=== PATIENT | female | born 1935 | race Caucasian/White ===

== ENCOUNTER 2016-09-28 08:22 | Inpatient (IN) | payer MEDICARE ==
[2016-09-28] MEDS: NS 0.9% 1000 ML* 1,000 ML IV SCH ×2 (08:45→12:06)
[2016-09-28] MEDS ORDERED: Albuterol/Ipratropium NEB.SOL* Albuterol 2.5 MG/Ipratropium 0.5 MG 3 ML ONE (08:50)
[2016-09-28] MEDS ORDERED: Albuterol/Ipratropium NEB.SOL* Albuterol 2.5 MG/Ipratropium 0.5 MG 3 ML INH ONE (08:51)
--- NOTE | 2016-09-28 08:52 | RAD ---
INDICATION: Short of breath COMPARISON: August 03, 2013 TECHNIQUE: An AP portable view obtained at 0836 hours is submitted. FINDINGS: Bones/Soft Tissues: There are no acute bony findings. There is increased para mediastinal soft tissue prominence in the right upper mediastinum. This may be represent a combination of image rotation and vascular ectasia. Initially, suggest a follow-up PA and lateral view. Cardiomediastinal: The heart is normal in size. There is increased right upper mediastinal soft tissue prominence. This may be secondary to a combination of image rotation and vascular ectasia but a follow-up PA and lateral view is suggested for further evaluation. Lungs: Hyperinflation with mild chronic abnormalities left lung base. Pleura: Mild chronic blunting left costophrenic angle. Other: None IMPRESSION: ]. RIGHT PARA MEDIASTINAL SOFT TISSUE PROMINENCE. FOLLOW-UP IMAGING IS RECOMMENDED.
[2016-09-28 08:57] LABS: Hematocrit 35 % (35-47); Hemoglobin 11.3 g/dl (12.0-16.0); Mean Corpuscular HGB Conc 33 g/dl (31-36); Mean Corpuscular Hemoglobin 28 pg (27-31); Mean Corpuscular Volume 86 fL (80-97); Mean Platelet Volume 7 um3 (7.4-10.4); Red Blood Count 4.05 10^6/ul (4.0-5.4); Red Cell Distribution Width 14 % (10.5-15); White Blood Count 11.5 10^3/ul (3.5-10.8)
[2016-09-28 09:18] LABS: Albumin 4.1 g/dL (3.2-5.2); BUN/Creatinine Ratio 31.3 (8-20); C Reactive Protein 18.1 mg/L (< 5.00); Calcium 9.6 mg/dL (8.6-10.3); EGFR African American 114.8 (>60); EGFR Non-African American 89.3 (>60); Magnesium 3.4 mg/dL (1.9-2.7); Total Bilirubin 0.3 mg/dL (0.2-1.0); Total Protein 7.1 g/dL (6.4-8.9)
[2016-09-28] MEDS ORDERED: Levofloxacin 750 MG IVPREMIX(* 750 MG/150 ML BAG IVPB ONE (09:57)
[2016-09-28] MEDS ORDERED: Albuterol/Ipratropium NEB.SOL* Albuterol 2.5 MG/Ipratropium 0.5 MG 3 ML INH PRN (09:58)
[2016-09-28] MEDS ORDERED: methylPREDNISolone SOD 40 MG* 1 ML VIAL IV ONE (09:59)
[2016-09-28] MEDS ORDERED: methylPREDNISolone SOD 40 MG* 1 ML VIAL IV SCH (10:00)
[2016-09-28] MEDS ORDERED: Simethicone CHEW TAB* 80 MG PO PRN (10:02)
[2016-09-28 10:16] LABS: Urine Bacteria 1+ (Absent); Urine Bilirubin Negative (Negative); Urine Glucose Negative (Negative); Urine Nitrite Positive (Negative)
[2016-09-28] MEDS: Albuterol/Ipratropium NEB.SOL* Albuterol 2.5 MG/Ipratropium 0.5 MG 3 ML INH SCH ×4 (10:57→23:26)
[2016-09-28] MEDS ORDERED: Tiotropium CAP.INH* CAP.INH/18 MCG (USE ORDER SET !) INH SCH (11:00)
[2016-09-28] MEDS: ROFLUMILAST 500 MCG PO SCH (11:36)
[2016-09-28] MEDS: Montelukast Sodium TAB* 10 MG PO SCH (12:06)
[2016-09-28] MEDS: Aspirin Low Dose CHEW TAB* 81 MG PO SCH (12:06)
[2016-09-28] MEDS: UMECLIDIN MDI INH SCH (12:06)
[2016-09-28] MEDS: Mometasone/Formoter 100/5 MDI INH SCH ×2 (12:21→21:22)
[2016-09-28] MEDS: Albuterol HFA INHALER* 8 gm MDI INH SCH ×3 (13:45→21:21)
[2016-09-28] MEDS: methylPREDNISolone SOD 40 MG* 1 ML VIAL IV SCH ×2 (13:46→22:10)
[2016-09-28] MEDS: Heparin VIAL(*) 5000 UNITS/ML VIAL (FIVE THOUSAND) SUBCUT SCH ×2 (13:46→22:10)
--- NOTE | 2016-09-28 13:47 | HP ---
CC: Emiliano Villalobos MD HISTORY AND PHYSICAL: DATE OF ADMISSION: 09/28/16 TIME OF EVALUATION: 9:40 a.m. PRIMARY CARE PROVIDER: Emiliano Villalobos MD. CHIEF COMPLAINT: Shortness of breath. HISTORY OF PRESENT ILLNESS: Ms. Rojas is an 81-year-old lady with a past medical history of hyper tension, COPD on 2 liters of oxygen at home, GERD, who was brought in by EMS with complaints of naseem re shortness of breath. The patient states that she was on her usual state of health yesterday morn ing when she went out with friends. She states she was exposed to very strong smells of perfume and cigarette and upon returning home, she started to feel more short of breath. She states that in past, she was advised to increase her prednisone if she had symptoms and she did do that yesterday and initially felt much improved. Early evening, she started to have shortness of breath again and her family offered to bring her to the emergency room, but she felt it was not necessary. She took multiple breathing treatments overnight and states that after 1 in the morning, she was finally able to rest on her recliner, but around 4 in the morning, she woke up again severely short of breath a nd at that point, EMS was called. As per EMS records, the patient was found seated upright with ass istance. She was tripoding with pursed lip breathing and intercostal retractions and labored breathi ng. She was able to speak 2 to 3e word sentences. Lung sounds revealed faint wheezing globally wit h diminished sounds and minimal air movement. She received albuterol and Atrovent , received 6 lite rs of oxygen and despite that her saturation dropped to 88% when she was moved to the stretcher. Sh e also received magnesium and Dr. Angelo reported that the patient received CPAP and was initially feeling better, but at the time of my interview, she was once again short of breath, and although s he describes her symptoms are not as severe as they were when EMS was called. She is still very sym ptomatic. She denies fever, chills, chest pain, palpitations, or any other symptoms. No chest pain or palpita tions. No fevers, chills. She noticed a slight increase in sputum production yesterday, but the co rasheed is unchanged. No sick contacts at home. She did receive her pneumonia vaccine 2 weeks ago. PAST MEDICAL HISTORY: 1. Hypertension. 2. COPD on 2 liters of oxygen at home continuously. 3. GERD. PAST SURGICAL HISTORY: Status post left inguinal hernia repair, status post hysterectomy with bilat eral oophorectomy, status post lumbar spine surgery. MEDICATIONS: 1. Albuterol 2.5 mg nebulized q.4 hours p.r.n. shortness of breath. 2. Albuterol HFA 2 puffs inhaled 4 times a day. 3. Aspirin 81 mg p.o. daily. 4. Calcium carbonate plus vitamin D 2 tablets p.o. daily. 5. Fluconazole 100 mg p.o. daily as needed for yeast infection. 6. Lisinopril 10 mg daily. 7. Montelukast 10 mg p.o. daily. 8. Multivitamin with minerals 1 capsule p.o. daily. 9. Omeprazole 20 mg p.o. daily. 10. Prednisone 5 mg p.o. daily. 11. Daliresp 500 mcg p.o. daily. 12. Simethicone 80 mg p.o. a.c. h.s. as needed for bloating. 13. Spiriva 1 capsule inhaled daily. 14. Incruse Ellipta MDI 62.5 mcg inhaled twice a day. ALLERGIES: AMOXICILLIN, CEFTRIAXONE, CLAVULANIC ACID, the patient had difficulty breathing/wheezing . With CEPHALEXIN, the patient had an asthmatic shock, and with MUCINEX DM, the patient had an unkn own reaction. SOCIAL HISTORY: The patient is a former smoker with greater than 40 pack per year history. No hist ory of alcohol or recreational drugs. [place] ([facility] Surrogate decision maker is her daughter, Bernadette Rojas. Phone number is [phone] or her ot her daughter, Stone Rojas. Phone number is [phone]. REVIEW OF SYSTEMS: A 14-point review of systems was performed and all the pertinent negative and po sitive findings are described in the HPI. PHYSICAL EXAMINATION GENERAL: The patient is an elderly lady, sitting up in the stretcher in moderate respiratory distre ss, but able to speak full sentences. VITAL SIGNS: Temperature 98.4, heart rate is 110, respiratory rate is 24, oxygen saturation 93% on 2 liters nasal cannula, blood pressure is 111/78. HEENT: Pupils are equal. Moist mucous membranes. CHEST: Breath sounds present bilaterally with diffuse rhonchi and wheezing. She appears to be movi ng more air at this time. CVS: Normal S1 and S2. Regular rate and rhythm. Tachycardiac. ABDOMEN: Soft. Bowel sounds are present. EXTREMITIES: No edema. NEURO: She is alert, awake, and oriented x3. Able to move all 4 extremities. DIAGNOSTIC STUDIES/LAB DATA: The patient had a CBC that showed a WBC of 11.5, hemoglobin of 11.3, hematocrit of 35, platelets of 352 with 82% neutrophils. INR 0.82. Chemistry showed sodium of 137, potassium 4.0, chloride of 103, bicarb of 27, BUN of 20, creatinine of 0.64, glucose of 137, lactic acid of 2, calcium 9.6. Magnesium 3.4. LFTs are normal. CRP is 18.1. Urinalysis showed positive nitrites, 2+ LE, 3+ wbc's, 2+ rbc's. 1+ urine bacteria, present hyaline cast. EKG done on 09/28/16 at 08:40 a.m. showed sinus tachycardia at 103 beats per minute, low voltage on the precordial leads, but no acute ischemic changes. There is no significant change when compared t o her prior July 2013. Chest x-ray showed the right paramediastinal soft tissue prominence and foll ow up imaging was recommended. There is no infiltrate was reported. ASSESSMENT AND PLAN: Ms. Rojas is an 89-year-old lady with a past medical history of hypertension , gastroesophageal reflux disease, severe chronic obstructive pulmonary disease, on home O2, that pr esents to the emergency room with complaints of severe shortness of breath, found to have chronic ob structive pulmonary disease exacerbation. 1. Systemic inflammatory response syndrome. The patient meets systemic inflammatory response syndr ome criteria with tachycardia and tachypnea and the source appears to be her chronic obstructive pul monary disease exacerbation. She does have an abnormal UA, but she has no urinary complaints at thi s time. It is not clear to me if this truly represents a urinary tract infection. 2. Acute on chronic hypoxemic respiratory failure secondary to chronic obstructive pulmonary diseas e exacerbation. The patient will be admitted to the intensive care unit as I believe she will benef it from Vapotherm to decrease her work of breathing. 3. Acute chronic obstructive pulmonary disease exacerbation secondary to bronchitis. At this point , the etiology of this episode appears to be her exposure to strong perfumes and cigarette smell, bu t infection is on the differential. The patient will be admitted to the intensive care unit. She w ill be started on Vapotherm, bronchodilators inhaled and IV steroids and for now she is going to rec eive levofloxacin. If her urine culture shows no growth, the patient has no other signs of infectio n, and she has fast improvement, I think it is safe to assume she does not have any infection and le vofloxacin could be discontinued. I did discuss with the patient and she states that she has diffic ult time tolerating BiPAP in the past. She would try it again if necessary, but would rather not. We also talked about intubation. She is agreeable with it, but would not want to be on mechanical v entilation senior care. 4. Hypertension is controlled. We are going to continue lisinopril. 5. Gastroesophageal reflux disease. We will continue omeprazole. 6. Deep venous thrombosis prophylaxis. The patient has has a score of 4 on the DVT Prophylaxis Ri sk Assessment Guide and she will started on subcutaneous heparin. 5. Code status was discussed with the patient and her family. She wishes to be a full code. TIME SPENT: Approximately 70 minutes of critical care time were spent to complete this admission. [id number]/[facility] #: [id number]
--- NOTE | 2016-09-28 14:56 | ED ---
Allison Avelar Edward, scribed for Live Angelo MD on 09/28/16 at 0825 . Shortness of Breath - HPI Summary HPI Summary: 81 y/o female BIBA c/o SOB starting yesterday at noon. Pt has also been shaking and quivering that is alleviated with sitting. The SOB is alleviated with home O2. Denies CP, fevers and chills. Associated sx: productive cough (clear), chronic R ankle edema. Former smoker. PMHx COPD, asthma, arthritis, HTN. - History of Current Complaint Hx Obtained From: Patient Onset/Duration: Lasting Hours - Noon yesterday, Still Present Associated Signs & Symptoms: Cough (Productive) - Clear, Edema - Chronic R ankle edema - Allergy/Home Medications Allergies/Adverse Reactions: Allergies Allergy/AdvReac Type Severity Reaction Status Date / Time Amoxicillin Allergy Severe Difficulty Verified 09/28/16 08:34 [From Augmentin XR] Breathing/Wheezing Ceftriaxone [From Rocephin] Allergy Severe Difficulty Verified 09/28/16 08:34 Breathing/Wheezing Clavulanic Acid Allergy Severe Difficulty Verified 09/28/16 08:34 [From Augmentin XR] Breathing/Wheezing Dextromethorphan Allergy Unknown Unknown Verified 09/28/16 08:34 [From Mucinex DM] Reaction Details Guaifenesin [From Mucinex DM] Allergy Unknown Unknown Verified 09/28/16 08:34 Reaction Details Cephalexin Allergy Anaphylatic Verified 09/28/16 08:34 Shock PMH/Surg Hx/FS Hx/Imm Hx Previously Healthy: No Endocrine/Hematology History: Reports: Hx Anticoagulant Therapy Denies: Hx Blood Disorders, Hx Blood Transfusions, Hx Bone Marrow Disease, Hx Diabetes, Hx Systemic Lupus Erythematosus, Hx Sickle Cell Disease, Hx Thyroid Disease, Hx Anemia, Other Endocrine/Hematological Disorders Cardiovascular History: Reports: Hx Hypertension Denies: Hx Aneurysm, Hx Angina, Hx Angioplasty, Hx Auto Implanted Cardiovert Defib, Hx Cardiac Arrest, Hx Cardiomegaly, Hx Congenital Heart Disease, Hx Congestive Heart Failure, Hx Coronary Artery Disease, Hx Deep Vein Thrombosis, Hx Hypercholesterolemia, Hx Hypotension, Hx Pacemaker/ICD Respiratory History: Reports: Hx Asthma, Hx Chronic Bronchitis, Hx Chronic Obstructive Pulmonary Disease (COPD) Denies: Hx Bronchopulmonary Dysplasia, Hx Cystic Fibrosis, Hx Lung Cancer, Hx Pleural Effusion, Hx Pneumonia, Hx Pulmonary Edema, Hx Pulmonary Embolism, Hx Seasonal Allergies, Hx Sleep Apnea, Other Respiratory Problems/Disorders GI History: Reports: Hx Gastroesophageal Reflux Disease, Hx Hiatal Hernia, Other GI Disorders - gerd Denies: Hx Cirrhosis, Hx Crohn's Disease, Hx Diverticulosis, Hx Gall Bladder Disease, Hx Gastrointestinal Bleed, Hx Irritable Bowel, Hx Jaundice, Hx Obstructive Bowel, Hx Ileostomy, Hx Pyloric Stenosis, Hx Ulcer History: Denies: Hx Acute Renal Failure, Hx Benign Prostatic Hyperplasia, Hx Chronic Renal Failure, Hx Dialysis, Hx Kidney Infection, Hx Kidney Stones, Hx Renal Disease, Other Problems/Disorders Musculoskeletal History: Reports: Hx Arthritis, Hx Back Problems - Spinal stenosis, Hx Osteoporosis, Other Musculoskeletal History - spinal stenosis, back surgery Denies: Hx Bursitis, Hx Congenital Bone Abnormalities, Hx Fibromyalgia, Hx Gout, Hx Orthopedic Injury, Hx Scoliosis, Hx Tendonitis Sensory History: Reports: Hx Cataracts, Hx Contacts or Glasses, Hx Vision Problem Denies: Hx Eye Injury, Hx Eye Prosthesis, Hx Glaucoma, Hx Macular Degeneration, Hx Deafness, Hx Hearing Aid, Hx Hearing Problem, Other Sensory Impairments Opthamlomology History: Reports: Hx Cataracts, Hx Contacts or Glasses, Hx Vision Problem Denies: Hx Eye Injury, Hx Eye Prosthesis, Hx Glaucoma, Hx Macular Degeneration, Other Sensory Impairments Neurological History: Denies: Hx Dementia, Hx Developmental Delay, Hx Headaches, Hx Migraine, Hx Seizures, Hx Spinal Cord Injury, Hx Transient Ischemic Attacks (TIA), Other Neuro Impairments/Disorders Psychiatric History: Denies: Hx Anxiety, Hx Attention Deficit Hyperactivity Disorder, Hx Autism, Hx Oppositional Perkins Disorder, Hx Depression, Hx Panic Disorder, Hx Post Traumatic Stress Disorder, Hx Inpatient Treatment, Hx [facility] Tx , Hx Schizophrenia, Hx Bipolar Disorder, Hx Suicide Attempt, Hx Substance Abuse , Other Psychiatric Issues/Disorders - Surgical History Surgery Procedure, Year, and Place: LUMBAR LAMINECTOMY 07/20. BILATERAL CATARACT SURGERY. HYSTERECTOMY. Plantar surgery. Hernia repair Hx Anesthesia Reactions: No - Immunization History Date of Tetanus Vaccine: unknown Date of Influenza Vaccine: 2011 Infectious Disease History: Denies: Hx Clostridium Difficile, Hx Hepatitis, Hx Human Immunodeficiency Virus (HIV), Hx Shingles, Hx Tuberculosis - Social History Alcohol Use: None Hx Substance Use: No Substance Use Type: Reports: None Hx Tobacco Use: Yes Smoking Status (MU): Former Smoker Have You Smoked in the Last Year: No Review of Systems Constitutional: Negative Negative: Fever, Chills Eyes: Negative ENT: Negative Cardiovascular: Negative Negative: Chest Pain Positive: Shortness Of Breath Gastrointestinal: Negative Genitourinary: Negative Positive: Edema - Chronic R ankle Skin: Negative Neurological: Negative Psychological: Normal All Other Systems Reviewed And Are Negative: Yes Physical Exam Triage Information Reviewed: Yes Vital Signs On Initial Exam: Initial Vitals Temp Pulse Resp BP Pulse Ox 98.4 F 97 26 111/78 94 09/28/16 08:27 09/28/16 08:27 09/28/16 08:27 09/28/16 08:27 09/28/16 08:27 Vital Signs Reviewed: Yes Appearance: Positive: Well-Appearing, No Pain Distress Skin: Positive: Warm, Skin Color Reflects Adequate Perfusion, Dry Head/Face: Positive: Normal Head/Face Inspection Eyes: Positive: EOMI, CARYN Neck: Positive: Supple, Nontender Respiratory/Lung Sounds: Positive: Breath Sounds Present, Wheezes - Bilaterally , Other - Moderate respiratory distress. Poor movement in lungs bilaterally. Cardiovascular: Positive: Tachycardia Abdomen Description: Positive: Nontender, Soft Bowel Sounds: Positive: Present Musculoskeletal: Positive: Normal, Strength/ROM Intact. Negative: Other - No pedal edema Neurological: Positive: Normal, Sensory/Motor Intact, Alert, Oriented to Person Place, Time Psychiatric: Positive: Normal, Affect/Mood Appropriate Diagnostics - Vital Signs Vital Signs Temp Pulse Resp BP Pulse Ox 09/28/16 09:46 110 24 93 09/28/16 08:55 100 22 94 09/28/16 08:52 100 20 98 09/28/16 08:30 26 09/28/16 08:27 98.4 F 97 26 111/78 94 - Laboratory Lab Results: Lab Results 09/28/16 09/28/16 09/28/16 Range/Units 08:45 08:45 08:45 WBC 11.5 H (3.5-10.8) 10^3/ul RBC 4.05 (4.0-5.4) 10^6/ul Hgb 11.3 L (12.0-16.0) g/dl Hct 35 (35-47) % MCV 86 (80-97) fL MCH 28 (27-31) pg MCHC 33 (31-36) g/dl RDW 14 (10.5-15) % Plt Count 352 (150-450) 10^3/ul MPV 7 L (7.4-10.4) um3 Neut % (Auto) 82.9 (38-83) % Lymph % (Auto) 7.1 L (25-47) % [place] % (Auto) 8.6 (1-9) % Eos % (Auto) 0.8 (0-6) % Baso % (Auto) 0.6 (0-2) % Absolute Neuts (auto) 9.6 H (1.5-7.7) 10^3/ul Absolute Lymphs (auto) 0.8 L (1.0-4.8) 10^3/ul Absolute Monos (auto) 1.0 H (0-0.8) 10^3/ul Absolute Eos (auto) 0.1 (0-0.6) 10^3/ul Absolute Basos (auto) 0.1 (0-0.2) 10^3/ul Absolute Nucleated RBC 0 10^3/ul Nucleated RBC % 0 INR (Anticoag Therapy) 0.82 L (0.89-1.11) APTT 26.8 (26.0-36.3) seconds Sodium 137 (133-145) mmol/L Potassium 4.0 (3.5-5.0) mmol/L Chloride 103 (101-111) mmol/L Carbon Dioxide 27 (22-32) mmol/L Anion Gap 7 (2-11) mmol/L BUN 20 (6-24) mg/dL Creatinine 0.64 (0.51-0.95) mg/dL Est GFR ( Amer) 114.8 (>60) Est GFR (Non-Af Amer) 89.3 (>60) BUN/Creatinine Ratio 31.3 H (8-20) Glucose 137 H (70-100) mg/dL Lactic Acid (0.5-2.0) mmol/L Calcium 9.6 (8.6-10.3) mg/dL Magnesium 3.4 H (1.9-2.7) mg/dL Total Bilirubin 0.30 (0.2-1.0) mg/dL AST 14 (13-39) U/L ALT 15 (7-52) U/L Alkaline Phosphatase 86 (34-104) U/L Troponin I 0.00 (<0.04) ng/mL C-Reactive Protein 18.10 H (< 5.00) mg/L B-Natriuretic Peptide ( - 100) pg/mL Total Protein 7.1 (6.4-8.9) g/dL Albumin 4.1 (3.2-5.2) g/dL Globulin 3.0 (2-4) g/dL Albumin/Globulin Ratio 1.4 (1-3) Lipase 17 (11.0-82.0) U/L Urine Color Urine Appearance Urine pH (5-9) Ur Specific [place] (1.010-1.030) Urine Protein (Negative) Urine Ketones (Negative) Urine Blood (Negative) Urine Nitrate (Negative) Urine Bilirubin (Negative) Urine Urobilinogen (Negative) Ur Leukocyte Esterase (Negative) Urine WBC (Auto) (Absent) Urine RBC (Auto) (Absent) Ur Squamous Epith Cells (Absent) Urine Bacteria (Absent) Hyaline Casts (Absent) Urine Glucose (Negative) 09/28/16 09/28/16 09/28/16 Range/Units 08:45 08:45 09:45 WBC (3.5-10.8) 10^3/ul RBC (4.0-5.4) 10^6/ul Hgb (12.0-16.0) g/dl Hct (35-47) % MCV (80-97) fL MCH (27-31) pg MCHC (31-36) g/dl RDW (10.5-15) % Plt Count (150-450) 10^3/ul MPV (7.4-10.4) um3 Neut % (Auto) (38-83) % Lymph % (Auto) (25-47) % [place] % (Auto) (1-9) % Eos % (Auto) (0-6) % Baso % (Auto) (0-2) % Absolute Neuts (auto) (1.5-7.7) 10^3/ul Absolute Lymphs (auto) (1.0-4.8) 10^3/ul Absolute Monos (auto) (0-0.8) 10^3/ul Absolute Eos (auto) (0-0.6) 10^3/ul Absolute Basos (auto) (0-0.2) 10^3/ul Absolute Nucleated RBC 10^3/ul Nucleated RBC % INR (Anticoag Therapy) (0.89-1.11) APTT (26.0-36.3) seconds Sodium (133-145) mmol/L Potassium (3.5-5.0) mmol/L Chloride (101-111) mmol/L Carbon Dioxide (22-32) mmol/L Anion Gap (2-11) mmol/L BUN (6-24) mg/dL Creatinine (0.51-0.95) mg/dL Est GFR ( Amer) (>60) Est GFR (Non-Af Amer) (>60) BUN/Creatinine Ratio (8-20) Glucose (70-100) mg/dL Lactic Acid 2.0 (0.5-2.0) mmol/L Calcium (8.6-10.3) mg/dL Magnesium (1.9-2.7) mg/dL Total Bilirubin (0.2-1.0) mg/dL AST (13-39) U/L ALT (7-52) U/L Alkaline Phosphatase (34-104) U/L Troponin I (<0.04) ng/mL C-Reactive Protein (< 5.00) mg/L B-Natriuretic Peptide 43 ( - 100) pg/mL Total Protein (6.4-8.9) g/dL Albumin (3.2-5.2) g/dL Globulin (2-4) g/dL Albumin/Globulin Ratio (1-3) Lipase (11.0-82.0) U/L Urine Color Yellow Urine Appearance Cloudy Urine pH 5.0 (5-9) Ur Specific [place] 1.013 (1.010-1.030) Urine Protein Negative (Negative) Urine Ketones Negative (Negative) Urine Blood Negative (Negative) Urine Nitrate Positive H (Negative) Urine Bilirubin Negative (Negative) Urine Urobilinogen Negative (Negative) Ur Leukocyte Esterase 2+ H (Negative) Urine WBC (Auto) 3+(>20/hpf) H (Absent) Urine RBC (Auto) 2+(6-10/hpf) H (Absent) Ur Squamous Epith Cells Present H (Absent) Urine Bacteria 1+ H (Absent) Hyaline Casts Present H (Absent) Urine Glucose Negative (Negative) Result Diagrams: 09/28/16 08:45 09/28/16 08:45 Lab Statement: Any lab studies that have been ordered have been reviewed, and results considered in the medical decision making process. - Radiology CXR Xray Interpretation: Positive (See Comments) - RIGHT PARA MEDIASTINAL SOFT TISSUE PROMINENCE. FOLLOW-UP IMAGING IS RECOMMENDED. Radiology Interpretation Completed By: Radiologist - EKG 1 EKG Rhythm: Sinus Tachycardia - [address] Segment: Normal Ectopy: None EKG Interpretation: 08:40 Course/Dx - Course Course Of Treatment: ADMIT HOSPITALIST GUARDED - Diagnoses Provider Diagnoses: COPD (chronic obstructive pulmonary disease), Bronchitis - Physician Notifications Discussed Care of Patient With: Toma Waddell Time Discussed With Above Provider: 09:10 Instructed by Provider To: Admit As Inpatient - Critical Care Time Critical Care Time: 30-74 min Discharge - Discharge Plan Condition: Guarded Disposition: ADMITTED TO [facility] The documentation as recorded by the Allison ordoñez Edward accurately reflects the service I personally performed and the decisions made by me, Live Angelo MD.
--- NOTE | 2016-09-28 21:55 | HP ---
HISTORY AND PHYSICAL:* ADDENDUM: ASSESSMENT AND PLAN: The patient's chest x-ray showed a right paramediastinal soft tissue prominence. When the patient's respiratory status is improved, we should pursue a CT of the chest without contrast for further clarification, but she needs to be able to lie flat to have this test done and I believe this will not be possible today. Maybe by tomorrow, her respiratory will have improved enough, we can pursue that test then. [id number]/[facility] #: [id number] MTDD
[2016-09-29] MEDS: Acetaminophen TAB* 325 MG PO PRN (00:58)
[2016-09-29] MEDS: Albuterol/Ipratropium NEB.SOL* Albuterol 2.5 MG/Ipratropium 0.5 MG 3 ML INH SCH ×3 (03:35→10:05)
[2016-09-29 07:00] LABS: Hematocrit 35 % (35-47); Hemoglobin 11.2 g/dl (12.0-16.0); Mean Corpuscular HGB Conc 32 g/dl (31-36); Mean Corpuscular Hemoglobin 28 pg (27-31); Mean Corpuscular Volume 87 fL (80-97); Mean Platelet Volume 7 um3 (7.4-10.4); Red Blood Count 4.06 10^6/ul (4.0-5.4); Red Cell Distribution Width 14 % (10.5-15)
[2016-09-29] MEDS: methylPREDNISolone SOD 40 MG* 1 ML VIAL IV SCH ×3 (07:22→22:07)
[2016-09-29] MEDS: Heparin VIAL(*) 5000 UNITS/ML VIAL (FIVE THOUSAND) SUBCUT SCH ×3 (07:22→22:07)
[2016-09-29 07:31] LABS: BUN/Creatinine Ratio 27.4 (8-20); Calcium 9.5 mg/dL (8.6-10.3); EGFR African American 119.1 (>60); EGFR Non-African American 92.6 (>60); Potassium 4.6 mmol/L (3.5-5.0)
[2016-09-29] MEDS: Mometasone/Formoter 100/5 MDI INH SCH ×2 (07:55→20:00)
--- NOTE | 2016-09-29 08:10 | PN ---
Subjective Date of Service: 09/29/16 Interval History: Ms. Rojas is an 81 yo female with a PMH of oxygen dependent COPD and HTN who reports increased shortness of breath after going out with friends on Thursday; she attributes the exposure to strong perfume and cigarette smoke as the catalyst for her dyspnea. This got progressively worse, even after taking prednisone and home breathing treatments. The patient presented to the ED on Thursday and required BiPAP and vapotherm. She reports feeling better this AM and denies any fever/chills, CP, or other symptoms of concern. Family History: Unchanged from Admission Social History: Unchanged from Admission Past Medical History: Unchanged from Admission Objective Active Medications: Acetaminophen (Tylenol Tab*) 650 mg PO Q4H PRN PRN Reason: PAIN Last Admin: 09/29/16 00:58 Dose: 650 mg Albuterol/Ipratropium (Duoneb (Albuterol 2.5 Mg/Ipratropium 0.5 Mg)) 1 neb INH [id number] AWAKE [facility] Last Admin: 09/29/16 07:55 Dose: 1 neb Albuterol/Ipratropium (Duoneb (Albuterol 2.5 Mg/Ipratropium 0.5 Mg)) 1 neb INH Q2H PRN PRN Reason: SOB/WHEEZING Aspirin (Aspirin Low Dose Tab*) 81 mg PO DAILY [facility] Last Admin: 09/28/16 12:06 Dose: 81 mg Calcium/Vitamin D (Oscal D Tab 250/125*) 2 tab PO DAILY [facility] Heparin Sodium (Porcine) (Heparin Vial(*)) 5,000 units SUBCUT Q8HR [facility] Last Admin: 09/29/16 07:22 Dose: 5,000 units Levofloxacin/Dextrose (Levaquin 500 Mg Ivpremix(*)) 500 mg in 100 mls @ 100 mls /hr IVPB Q24H [facility] Lisinopril (Prinivil Tab*) 10 mg PO DAILY [facility] Methylprednisolone Sodium Succinate (Solu-Medrol 40 Mg) 40 mg IV Q8H [facility] Last Admin: 09/29/16 07:22 Dose: 40 mg Mometasone Furoate/Formoterol Fumar (Dulera 100/5 Mdi*) 2 puff INH BID [facility] Last Admin: 09/29/16 07:55 Dose: 2 puff Montelukast Sodium (Singulair Tab*) 10 mg PO DAILY [facility] Last Admin: 09/28/16 12:06 Dose: 10 mg Multivitamins/Minerals (Preservision Areds(Multivitamins/Mineral)(Nf)) 1 cap PO DAILY [facility] Omeprazole (Prilosec Cap*) 20 mg PO DAILY [facility] Roflumilast (Daliresp (Nf)) 500 mcg PO DAILY [facility] Last Admin: 09/28/16 11:36 Dose: Not Given Simethicone (Mylicon*) 80 mg PO ACHS PRN PRN Reason: bloating Umeclidinium [place] (Incruse Ellipta Mdi (Nf)) 1 inh INH DAILY [facility] Last Admin: 09/28/16 12:06 Dose: Not Given Vital Signs 09/28/16 09/28/16 09/28/16 10:00 10:31 10:40 Temperature 98.3 F Pulse Rate 107 100 100 Respiratory 22 21 20 Rate Blood Pressure 120/72 142/87 127/72 (mmHg) O2 Sat by Pulse 94 93 Oximetry 09/28/16 09/28/16 09/28/16 10:47 10:57 10:59 Temperature 99.3 F Pulse Rate 109 108 111 Respiratory 23 22 23 Rate Blood Pressure 143/76 (mmHg) O2 Sat by Pulse 94 96 97 Oximetry 09/28/16 09/28/16 09/28/16 11:00 11:02 11:15 Temperature Pulse Rate 110 115 109 Respiratory 20 23 22 Rate Blood Pressure 143/76 138/69 (mmHg) O2 Sat by Pulse 97 96 95 Oximetry 09/28/16 09/28/16 09/28/16 11:30 11:45 11:56 Temperature Pulse Rate 104 115 Respiratory 31 18 31 Rate Blood Pressure 142/78 160/74 (mmHg) O2 Sat by Pulse 96 95 Oximetry 09/28/16 09/28/16 09/28/16 12:00 12:15 12:30 Temperature Pulse Rate 120 122 110 Respiratory 22 25 34 Rate Blood Pressure 131/60 108/83 134/85 (mmHg) O2 Sat by Pulse 94 94 95 Oximetry 09/28/16 09/28/16 09/28/16 12:45 13:00 13:15 Temperature Pulse Rate 105 108 105 Respiratory 25 25 19 Rate Blood Pressure 101/67 136/61 143/82 (mmHg) O2 Sat by Pulse 96 97 96 Oximetry 09/28/16 09/28/16 09/28/16 13:30 13:45 14:00 Temperature Pulse Rate 116 115 110 Respiratory 24 17 26 Rate Blood Pressure 140/67 129/66 134/90 (mmHg) O2 Sat by Pulse 95 96 97 Oximetry 09/28/16 09/28/16 09/28/16 14:16 14:30 14:46 Temperature Pulse Rate 113 106 108 Respiratory 21 23 18 Rate Blood Pressure 148/61 139/57 136/61 (mmHg) O2 Sat by Pulse 97 97 95 Oximetry 09/28/16 09/28/16 09/28/16 15:00 15:15 15:18 Temperature Pulse Rate 112 113 107 Respiratory 22 16 Rate Blood Pressure 160/70 143/67 (mmHg) O2 Sat by Pulse 95 96 Oximetry 09/28/16 09/28/16 09/28/16 15:31 15:45 16:00 Temperature 98.6 F Pulse Rate 114 112 117 Respiratory 26 15 19 Rate Blood Pressure 166/116 161/72 155/67 (mmHg) O2 Sat by Pulse 95 96 95 Oximetry 09/28/16 09/28/16 09/28/16 16:15 16:31 16:45 Temperature Pulse Rate 113 112 106 Respiratory 22 24 23 Rate Blood Pressure 152/77 117/70 116/59 (mmHg) O2 Sat by Pulse 94 94 94 Oximetry 09/28/16 09/28/16 09/28/16 17:00 17:01 17:15 Temperature Pulse Rate 108 106 108 Respiratory 22 25 25 Rate Blood Pressure 148/58 127/57 (mmHg) O2 Sat by Pulse 94 94 95 Oximetry 09/28/16 09/28/16 09/28/16 17:30 17:45 18:00 Temperature Pulse Rate 103 109 116 Respiratory 27 16 23 Rate Blood Pressure 125/66 137/78 (mmHg) O2 Sat by Pulse 96 95 96 Oximetry 09/28/16 09/28/16 09/28/16 18:01 18:16 18:30 Temperature Pulse Rate 113 117 106 Respiratory 18 23 26 Rate Blood Pressure 146/68 140/89 122/62 (mmHg) O2 Sat by Pulse 96 96 96 Oximetry 09/28/16 09/28/16 09/28/16 18:45 19:00 19:16 Temperature Pulse Rate 106 112 100 Respiratory 27 29 26 Rate Blood Pressure 122/50 137/60 137/63 (mmHg) O2 Sat by Pulse 96 96 95 Oximetry 09/28/16 09/28/16 09/28/16 19:30 19:44 19:45 Temperature Pulse Rate 112 102 102 Respiratory 31 20 25 Rate Blood Pressure 156/85 125/64 (mmHg) O2 Sat by Pulse 95 96 97 Oximetry 09/28/16 09/28/16 09/28/16 20:00 20:15 20:30 Temperature 97.8 F Pulse Rate 110 110 98 Respiratory 24 21 20 Rate Blood Pressure 126/63 153/62 123/61 (mmHg) O2 Sat by Pulse 95 95 95 Oximetry 09/28/16 09/28/16 09/28/16 20:45 21:00 21:15 Temperature Pulse Rate 95 95 99 Respiratory 22 16 24 Rate Blood Pressure 124/62 127/63 137/64 (mmHg) O2 Sat by Pulse 98 97 96 Oximetry 09/28/16 09/28/16 09/28/16 21:30 21:45 22:00 Temperature Pulse Rate 95 103 98 Respiratory 20 24 19 Rate Blood Pressure 128/58 147/66 (mmHg) O2 Sat by Pulse 96 96 95 Oximetry 09/28/16 09/28/16 09/28/16 22:01 22:16 22:30 Temperature Pulse Rate 95 94 84 Respiratory 27 26 20 Rate Blood Pressure 127/62 149/58 127/59 (mmHg) O2 Sat by Pulse 96 95 96 Oximetry 09/28/16 09/28/16 09/28/16 22:45 23:00 23:15 Temperature Pulse Rate 96 98 91 Respiratory 26 23 20 Rate Blood Pressure 124/54 127/60 141/58 (mmHg) O2 Sat by Pulse 95 96 96 Oximetry 09/28/16 09/28/16 09/28/16 23:26 23:30 23:36 Temperature 97.2 F Pulse Rate 84 88 Respiratory 16 18 Rate Blood Pressure 134/61 (mmHg) O2 Sat by Pulse 96 98 Oximetry 09/28/16 09/28/16 09/29/16 23:38 23:45 00:00 Temperature Pulse Rate 84 89 Respiratory 21 18 25 Rate Blood Pressure 131/60 140/61 (mmHg) O2 Sat by Pulse 97 97 Oximetry 09/29/16 09/29/16 09/29/16 00:08 00:16 00:30 Temperature Pulse Rate 78 86 95 Respiratory 20 22 18 Rate Blood Pressure 130/51 134/93 (mmHg) O2 Sat by Pulse 97 96 95 Oximetry 09/29/16 09/29/16 09/29/16 00:45 00:59 01:00 Temperature Pulse Rate 85 85 Respiratory 22 18 19 Rate Blood Pressure 118/74 (mmHg) O2 Sat by Pulse 96 96 Oximetry 09/29/16 09/29/16 09/29/16 01:01 01:15 01:30 Temperature Pulse Rate 95 91 88 Respiratory 14 18 19 Rate Blood Pressure 149/77 145/66 139/60 (mmHg) O2 Sat by Pulse 96 95 95 Oximetry 09/29/16 09/29/16 09/29/16 01:45 02:00 02:15 Temperature Pulse Rate 84 85 83 Respiratory 24 22 22 Rate Blood Pressure 135/53 150/63 120/53 (mmHg) O2 Sat by Pulse 95 96 95 Oximetry 09/29/16 09/29/16 09/29/16 02:30 02:45 03:00 Temperature Pulse Rate 80 119 94 Respiratory 21 35 22 Rate Blood Pressure 118/57 112/88 139/60 (mmHg) O2 Sat by Pulse 95 96 96 Oximetry 09/29/16 09/29/16 09/29/16 03:15 03:30 03:36 Temperature Pulse Rate 88 99 82 Respiratory 15 15 14 Rate Blood Pressure 140/56 132/64 (mmHg) O2 Sat by Pulse 95 95 97 Oximetry 09/29/16 09/29/16 09/29/16 03:45 03:57 04:00 Temperature 98.2 F Pulse Rate 88 94 88 Respiratory 22 19 22 Rate Blood Pressure 161/82 161/82 130/55 (mmHg) O2 Sat by Pulse 96 94 95 Oximetry 09/29/16 09/29/16 09/29/16 04:15 04:30 04:45 Temperature Pulse Rate 85 76 80 Respiratory 23 21 22 Rate Blood Pressure 141/68 142/61 133/68 (mmHg) O2 Sat by Pulse 96 96 95 Oximetry 09/29/16 09/29/16 09/29/16 05:00 05:01 05:15 Temperature Pulse Rate 104 108 81 Respiratory 19 32 15 Rate Blood Pressure 156/71 143/57 (mmHg) O2 Sat by Pulse 97 96 96 Oximetry 09/29/16 09/29/16 09/29/16 05:30 05:45 06:00 Temperature Pulse Rate 85 83 79 Respiratory 20 23 22 Rate Blood Pressure 128/56 141/62 150/69 (mmHg) O2 Sat by Pulse 95 96 96 Oximetry 09/29/16 09/29/16 09/29/16 06:15 06:31 06:45 Temperature Pulse Rate 71 99 92 Respiratory 22 24 17 Rate Blood Pressure 134/64 147/103 140/57 (mmHg) O2 Sat by Pulse 95 97 95 Oximetry 09/29/16 09/29/16 09/29/16 07:00 07:16 07:21 Temperature 98.6 F Pulse Rate 85 111 Respiratory 19 27 Rate Blood Pressure 147/69 162/140 (mmHg) O2 Sat by Pulse 96 94 Oximetry 09/29/16 09/29/16 09/29/16 07:24 07:30 08:00 Temperature Pulse Rate 97 94 89 Respiratory 14 25 18 Rate Blood Pressure 138/71 138/64 (mmHg) O2 Sat by Pulse 95 95 97 Oximetry Oxygen Devices in Use Now: High Flow Nasal Cannula Appearance: Elderly female, sitting up in bed, speaking in full sentences, in NAD Eyes: No Scleral Icterus Ears/Nose/Mouth/Throat: Clear Oropharnyx, Mucous Membranes Moist Neck: NL Appearance and Movements; NL JVP Respiratory: Symmetrical Chest Expansion and Respiratory Effort, - - expiratory wheezing and rhonchi Cardiovascular: NL Sounds; No Murmurs; No JVD, RRR Abdominal: NL Sounds; No Tenderness; No Distention Extremities: No Edema Neurological: Alert and Oriented x 3, NL Muscle Strength and Tone Lines/Tubes/Other Access: Clean, Dry and Intact Peripheral IV Nutrition: Taking PO's Result Diagrams: 09/29/16 06:48 09/29/16 06:48 Additional Lab and Data: Lab Results 09/28/16 09/28/16 09/28/16 Range/Units 08:45 08:45 08:45 WBC 11.5 H (3.5-10.8) 10^3/ul RBC 4.05 (4.0-5.4) 10^6/ul Hgb 11.3 L (12.0-16.0) g/dl Hct 35 (35-47) % MCV 86 (80-97) fL MCH 28 (27-31) pg MCHC 33 (31-36) g/dl RDW 14 (10.5-15) % Plt Count 352 (150-450) 10^3/ul MPV 7 L (7.4-10.4) um3 Neut % (Auto) 82.9 (38-83) % Lymph % (Auto) 7.1 L (25-47) % [place] % (Auto) 8.6 (1-9) % Eos % (Auto) 0.8 (0-6) % Baso % (Auto) 0.6 (0-2) % Absolute Neuts (auto) 9.6 H (1.5-7.7) 10^3/ul Absolute Lymphs (auto) 0.8 L (1.0-4.8) 10^3/ul Absolute Monos (auto) 1.0 H (0-0.8) 10^3/ul Absolute Eos (auto) 0.1 (0-0.6) 10^3/ul Absolute Basos (auto) 0.1 (0-0.2) 10^3/ul Absolute Nucleated RBC 0 10^3/ul Nucleated RBC % 0 INR (Anticoag Therapy) 0.82 L (0.89-1.11) APTT 26.8 (26.0-36.3) seconds Sodium 137 (133-145) mmol/L Potassium 4.0 (3.5-5.0) mmol/L Chloride 103 (101-111) mmol/L Carbon Dioxide 27 (22-32) mmol/L Anion Gap 7 (2-11) mmol/L BUN 20 (6-24) mg/dL Creatinine 0.64 (0.51-0.95) mg/dL Est GFR ( Amer) 114.8 (>60) Est GFR (Non-Af Amer) 89.3 (>60) BUN/Creatinine Ratio 31.3 H (8-20) Glucose 137 H (70-100) mg/dL Lactic Acid (0.5-2.0) mmol/L Calcium 9.6 (8.6-10.3) mg/dL Magnesium 3.4 H (1.9-2.7) mg/dL Total Bilirubin 0.30 (0.2-1.0) mg/dL AST 14 (13-39) U/L ALT 15 (7-52) U/L Alkaline Phosphatase 86 (34-104) U/L Troponin I 0.00 (<0.04) ng/mL C-Reactive Protein 18.10 H (< 5.00) mg/L B-Natriuretic Peptide ( - 100) pg/mL Total Protein 7.1 (6.4-8.9) g/dL Albumin 4.1 (3.2-5.2) g/dL Globulin 3.0 (2-4) g/dL Albumin/Globulin Ratio 1.4 (1-3) Lipase 17 (11.0-82.0) U/L Urine Color Urine Appearance Urine pH (5-9) Ur Specific [place] (1.010-1.030) Urine Protein (Negative) Urine Ketones (Negative) Urine Blood (Negative) Urine Nitrate (Negative) Urine Bilirubin (Negative) Urine Urobilinogen (Negative) Ur Leukocyte Esterase (Negative) Urine WBC (Auto) (Absent) Urine RBC (Auto) (Absent) Ur Squamous Epith Cells (Absent) Urine Bacteria (Absent) Hyaline Casts (Absent) Urine Glucose (Negative) 09/28/16 09/28/16 09/28/16 Range/Units 08:45 08:45 09:45 WBC (3.5-10.8) 10^3/ul RBC (4.0-5.4) 10^6/ul Hgb (12.0-16.0) g/dl Hct (35-47) % MCV (80-97) fL MCH (27-31) pg MCHC (31-36) g/dl RDW (10.5-15) % Plt Count (150-450) 10^3/ul MPV (7.4-10.4) um3 Neut % (Auto) (38-83) % Lymph % (Auto) (25-47) % [place] % (Auto) (1-9) % Eos % (Auto) (0-6) % Baso % (Auto) (0-2) % Absolute Neuts (auto) (1.5-7.7) 10^3/ul Absolute Lymphs (auto) (1.0-4.8) 10^3/ul Absolute Monos (auto) (0-0.8) 10^3/ul Absolute Eos (auto) (0-0.6) 10^3/ul Absolute Basos (auto) (0-0.2) 10^3/ul Absolute Nucleated RBC 10^3/ul Nucleated RBC % INR (Anticoag Therapy) (0.89-1.11) APTT (26.0-36.3) seconds Sodium (133-145) mmol/L Potassium (3.5-5.0) mmol/L Chloride (101-111) mmol/L Carbon Dioxide (22-32) mmol/L Anion Gap (2-11) mmol/L BUN (6-24) mg/dL Creatinine (0.51-0.95) mg/dL Est GFR ( Amer) (>60) Est GFR (Non-Af Amer) (>60) BUN/Creatinine Ratio (8-20) Glucose (70-100) mg/dL Lactic Acid 2.0 (0.5-2.0) mmol/L Calcium (8.6-10.3) mg/dL Magnesium (1.9-2.7) mg/dL Total Bilirubin (0.2-1.0) mg/dL AST (13-39) U/L ALT (7-52) U/L Alkaline Phosphatase (34-104) U/L Troponin I (<0.04) ng/mL C-Reactive Protein (< 5.00) mg/L B-Natriuretic Peptide 43 ( - 100) pg/mL Total Protein (6.4-8.9) g/dL Albumin (3.2-5.2) g/dL Globulin (2-4) g/dL Albumin/Globulin Ratio (1-3) Lipase (11.0-82.0) U/L Urine Color Yellow Urine Appearance Cloudy Urine pH 5.0 (5-9) Ur Specific [place] 1.013 (1.010-1.030) Urine Protein Negative (Negative) Urine Ketones Negative (Negative) Urine Blood Negative (Negative) Urine Nitrate Positive H (Negative) Urine Bilirubin Negative (Negative) Urine Urobilinogen Negative (Negative) Ur Leukocyte Esterase 2+ H (Negative) Urine WBC (Auto) 3+(>20/hpf) H (Absent) Urine RBC (Auto) 2+(6-10/hpf) H (Absent) Ur Squamous Epith Cells Present H (Absent) Urine Bacteria 1+ H (Absent) Hyaline Casts Present H (Absent) Urine Glucose Negative (Negative) Microbiology and Other Data: Microbiology 09/28/16 11:25 Nasal Screen MRSA (PCR)([facility]) - Final Nasal Mrsa Negative Diagnostic Imaging: CXR, on admission: Right paramediastinal soft tissue prominence, follow up imaging was recommended. No infiltrate noted. EKG Data: EKG, on admission: sinus tachycardia at 103 beats per minute, low voltage on the precordial leads, but no acute ischemic changes. No significant change when compared to EKG from July 2013. Assess/Plan/Problems-Billing Assessment: Ms. Rojas is an 81 yo female with a PMH of COPD with chronic O2 use (2L), HTN , and GERD who presented to the ED on 09/28 with concern for respiratory distress that is secondary to COPD exacerbation, SIRS, and acute on chronic hypoxic respiratory failure. - Patient Problems (1) COPD (chronic obstructive pulmonary disease) Code(s): J44.9 - CHRONIC OBSTRUCTIVE PULMONARY DISEASE, UNSPECIFIED Comment: With acute exacerbation and suspected bronchitis Etiology unclear, possibly secondary to infection but may also include cigarette and strong perfume exposure. Improved this AM, patient is on maximal vapotherm settings; cont attempts to wean. Continue levofloxacin, IV steroids, nebulizers, chest physiotherapy, supportive care. Continue home montelukast, Daliresp, Spiriva, Incruse Ellipta. Hold home prednisone (chronically on 5 mg). Patient chronically uses oxygen 2Lnc. (2) Acute and chronic respiratory failure with hypoxia Code(s): J96.21 - ACUTE AND CHRONIC RESPIRATORY FAILURE WITH HYPOXIA Comment: Secondary to COPD exacerbation Patient is chronically on 2Lnc. Continue vapotherm with attempts to wean. (3) SIRS (systemic inflammatory response syndrome) Code(s): R65.10 - SIRS OF NON-INFECTIOUS ORIGIN W/O ACUTE ORGAN DYSFUNCTION Comment: Meets criteria on admission with leukocytosis, tachycardia, and tachypnea. Suspect secondary to COPD exacerbation. (4) HTN (hypertension) Code(s): I10 - ESSENTIAL (PRIMARY) HYPERTENSION Comment: Mostly normotensive Continue lisinopril. (5) GERD (gastroesophageal reflux disease) Code(s): K21.9 - GASTRO-ESOPHAGEAL REFLUX DISEASE WITHOUT ESOPHAGITIS Comment : Continue omeprazole. (6) Abnormal CXR Code(s): R93.8 - ABNORMAL FINDINGS ON DIAGNOSTIC IMAGING OF BODY STRUCTURES Comment: CXR on admission showed a right paramediastinal soft tissue prominence. Plan for CT chest for further evaluation; patient currently unable to lay flat. Will attempt to obtain CT chest on 09/30 (7) DVT prophylaxis Comment: SQ heparin Status and Disposition: Inpatient admit. Anticipate LOS >2 days.
[2016-09-29] MEDS: Calcium/Vitamin D TAB 250/125* TAB PO SCH (08:55)
[2016-09-29] MEDS: Lisinopril TAB* 10 MG PO SCH (08:55)
[2016-09-29] MEDS: Omeprazole CAP* 20 MG PO SCH (08:55)
[2016-09-29] MEDS: Montelukast Sodium TAB* 10 MG PO SCH (08:55)
[2016-09-29] MEDS: Aspirin Low Dose CHEW TAB* 81 MG PO SCH (08:55)
[2016-09-29] MEDS: NF:Multivitamins/Minera Areds(NF) 1 CAP CAP PO SCH (08:56)
[2016-09-29] MEDS: UMECLIDIN MDI INH SCH (09:49)
[2016-09-29] MEDS: Levofloxacin 500 MG IVPREMIX(* 500 MG/100 ML BAG IVPB SCH (10:30)
[2016-09-29] MEDS: ROFLUMILAST 500 MCG PO SCH (12:53)
[2016-09-29] MEDS: Levalbuterol 1.25MG/0.5ML NEB INH SCH ×3 (15:14→23:04)
[2016-09-30] MEDS: Acetaminophen TAB* 325 MG PO PRN ×2 (00:16→17:34)
[2016-09-30] MEDS: CMCS: Melatonin (NF) 3 MG TAB PO PRN ×2 (00:35→21:56)
[2016-09-30] MEDS: Levalbuterol 1.25MG/0.5ML NEB INH SCH ×6 (03:17→23:33)
[2016-09-30 05:09] LABS: Calcium 9.6 mg/dL (8.6-10.3); EGFR African American 98.7 (>60); EGFR Non-African American 76.7 (>60); Potassium 4.5 mmol/L (3.5-5.0)
[2016-09-30 05:14] LABS: Hematocrit 37 % (35-47); Hemoglobin 12.2 g/dl (12.0-16.0); Mean Corpuscular HGB Conc 33 g/dl (31-36); Mean Corpuscular Hemoglobin 28 pg (27-31); Mean Corpuscular Volume 87 fL (80-97); Mean Platelet Volume 8 um3 (7.4-10.4); Red Blood Count 4.31 10^6/ul (4.0-5.4); Red Cell Distribution Width 14 % (10.5-15); White Blood Count 20.2 10^3/ul (3.5-10.8)
[2016-09-30 05:15] LABS: Add Diff/Slide Review? Slide Review Added; Comments Flag Yes
[2016-09-30] MEDS: methylPREDNISolone SOD 40 MG* 1 ML VIAL IV SCH ×3 (07:04→21:56)
[2016-09-30] MEDS: Heparin VIAL(*) 5000 UNITS/ML VIAL (FIVE THOUSAND) SUBCUT SCH ×3 (07:04→21:56)
[2016-09-30 07:49] LABS: C Reactive Protein 15.33 mg/L (< 5.00)
[2016-09-30] MEDS: Mometasone/Formoter 100/5 MDI INH SCH ×2 (08:32→20:44)
--- NOTE | 2016-09-30 08:49 | PN ---
Subjective Date of Service: 09/30/16 Interval History: Patient seen and examined at bedside. She reports feeling a little better and is starting to cough up some sputum. Patient denies fever/chills, chest pain. Reports being able to sleep better last evening. Patient has brought in home meds for use here in the hospital, as some of them are not on formulary. Family History: Unchanged from Admission Social History: Unchanged from Admission Past Medical History: Unchanged from Admission Objective Active Medications: Acetaminophen (Tylenol Tab*) 650 mg PO Q4H PRN PRN Reason: PAIN Last Admin: 09/30/16 00:16 Dose: 650 mg Aspirin (Aspirin Low Dose Tab*) 81 mg PO DAILY [facility] Last Admin: 09/29/16 08:55 Dose: 81 mg Calcium/Vitamin D (Oscal D Tab 250/125*) 2 tab PO DAILY [facility] Last Admin: 09/29/16 08:55 Dose: 2 tab Heparin Sodium (Porcine) (Heparin Vial(*)) 5,000 units SUBCUT Q8HR [facility] Last Admin: 09/30/16 07:04 Dose: 5,000 units Levofloxacin/Dextrose (Levaquin 500 Mg Ivpremix(*)) 500 mg in 100 mls @ 100 mls /hr IVPB Q24H [facility] Last Admin: 09/29/16 10:30 Dose: 100 mls/hr Levalbuterol HCl (Xopenex 1.25 Mg/0.5 Ml Neb.Ernestina*) 1.25 mg INH Q2H PRN PRN Reason: SOB/WHEEZING Levalbuterol HCl (Xopenex 1.25 Mg/0.5 Ml Neb.Ernestina*) 1.25 mg INH RT.P1TG-DFSBM AWAKE [facility] Last Admin: 09/30/16 08:31 Dose: 1.25 mg Lisinopril (Prinivil Tab*) 10 mg PO DAILY [facility] Last Admin: 09/29/16 08:55 Dose: 10 mg Melatonin (Melatonin (Nf)) 3 mg PO BEDTIME PRN; Protocol PRN Reason: Sleep Last Admin: 09/30/16 00:35 Dose: 3 mg Methylprednisolone Sodium Succinate (Solu-Medrol 40 Mg) 40 mg IV Q8H [facility] Last Admin: 09/30/16 07:04 Dose: 40 mg Mometasone Furoate/Formoterol Fumar (Dulera 100/5 Mdi*) 2 puff INH BID [facility] Last Admin: 09/30/16 08:32 Dose: 2 puff Montelukast Sodium (Singulair Tab*) 10 mg PO DAILY [facility] Last Admin: 09/29/16 08:55 Dose: 10 mg Multivitamins/Minerals (Preservision Areds(Multivitamins/Mineral)(Nf)) 1 cap PO DAILY [facility] Last Admin: 09/29/16 08:56 Dose: Not Given Omeprazole (Prilosec Cap*) 20 mg PO DAILY [facility] Last Admin: 09/29/16 08:55 Dose: 20 mg Roflumilast (Daliresp (Nf)) 500 mcg PO DAILY [facility] Last Admin: 09/29/16 12:53 Dose: Not Given Simethicone (Mylicon*) 80 mg PO ACHS PRN PRN Reason: bloating Sodium Chloride (Sodium Chloride 0.65% Nasal [place]*) 1 spray BOTH NARES Q1H PRN PRN Reason: NASAL CONGESTION Umeclidinium [place] (Incruse Ellipta Mdi (Nf)) 1 inh INH DAILY [facility] Last Admin: 09/29/16 09:49 Dose: Not Given Vital Signs 09/29/16 09/29/16 09/29/16 09:00 09:01 10:00 Temperature Pulse Rate 95 89 116 Respiratory 18 30 24 Rate Blood Pressure 154/71 148/87 (mmHg) O2 Sat by Pulse 96 97 96 Oximetry 09/29/16 09/29/16 09/29/16 10:06 10:43 11:00 Temperature Pulse Rate 110 120 124 Respiratory 24 20 24 Rate Blood Pressure (mmHg) O2 Sat by Pulse 96 95 95 Oximetry 09/29/16 09/29/16 09/29/16 11:01 11:49 12:00 Temperature 98.8 F Pulse Rate 119 105 Respiratory 18 30 Rate Blood Pressure 143/68 113/61 (mmHg) O2 Sat by Pulse 96 95 Oximetry 09/29/16 09/29/16 09/29/16 13:00 13:01 14:00 Temperature Pulse Rate 107 104 112 Respiratory 25 20 27 Rate Blood Pressure 141/65 77/67 (mmHg) O2 Sat by Pulse 95 98 96 Oximetry 09/29/16 09/29/16 09/29/16 14:23 15:00 16:00 Temperature 98.0 F Pulse Rate 107 101 107 Respiratory 27 19 25 Rate Blood Pressure 92/55 97/43 113/49 (mmHg) O2 Sat by Pulse 96 94 96 Oximetry 09/29/16 09/29/16 09/29/16 17:00 18:00 19:00 Temperature Pulse Rate 86 109 106 Respiratory 19 21 22 Rate Blood Pressure 111/50 121/56 110/61 (mmHg) O2 Sat by Pulse 96 96 96 Oximetry 09/29/16 09/29/16 09/29/16 20:00 21:00 22:00 Temperature 97.6 F Pulse Rate 96 87 84 Respiratory 19 16 25 Rate Blood Pressure 102/49 115/67 (mmHg) O2 Sat by Pulse 97 95 95 Oximetry 09/29/16 09/29/16 09/29/16 23:00 23:05 23:15 Temperature Pulse Rate 76 79 Respiratory 16 21 18 Rate Blood Pressure 117/52 (mmHg) O2 Sat by Pulse 97 97 Oximetry 09/29/16 09/30/16 09/30/16 23:21 00:00 00:01 Temperature 97.4 F Pulse Rate 78 111 105 Respiratory 16 32 22 Rate Blood Pressure 168/78 (mmHg) O2 Sat by Pulse 97 97 93 Oximetry 09/30/16 09/30/16 09/30/16 00:44 01:00 02:00 Temperature Pulse Rate 86 80 Respiratory 22 25 21 Rate Blood Pressure 130/59 (mmHg) O2 Sat by Pulse 95 93 Oximetry 09/30/16 09/30/16 09/30/16 02:01 02:42 03:00 Temperature Pulse Rate 67 82 Respiratory 26 20 22 Rate Blood Pressure 111/52 (mmHg) O2 Sat by Pulse 93 95 Oximetry 09/30/16 09/30/16 09/30/16 03:01 03:18 04:00 Temperature 98.1 F Pulse Rate 67 77 78 Respiratory 21 21 18 Rate Blood Pressure 119/68 118/57 (mmHg) O2 Sat by Pulse 95 97 94 Oximetry 09/30/16 09/30/16 09/30/16 05:00 05:01 06:00 Temperature Pulse Rate 103 90 70 Respiratory 20 24 21 Rate Blood Pressure 142/76 127/54 (mmHg) O2 Sat by Pulse 95 96 96 Oximetry 09/30/16 09/30/16 07:28 08:30 Temperature 97.2 F Pulse Rate 100 Respiratory 18 Rate Blood Pressure (mmHg) O2 Sat by Pulse 99 Oximetry Oxygen Devices in Use Now: High Flow Nasal Cannula Appearance: Elderly female, OOB to chair, tachypneic but able to speak in full sentences Eyes: No Scleral Icterus Ears/Nose/Mouth/Throat: Clear Oropharnyx, Mucous Membranes Moist Neck: NL Appearance and Movements; NL JVP Respiratory: Symmetrical Chest Expansion and Respiratory Effort, - - exp rhonchi and wheezing in middle and lower lobes Cardiovascular: NL Sounds; No Murmurs; No JVD, RRR Abdominal: NL Sounds; No Tenderness; No Distention Extremities: No Clubbing, Cyanosis Neurological: Alert and Oriented x 3, NL Muscle Strength and Tone Lines/Tubes/Other Access: Clean, Dry and Intact Peripheral IV Nutrition: Taking PO's Result Diagrams: 09/30/16 04:45 09/30/16 04:45 Additional Lab and Data: Lab Results 09/28/16 09/28/16 09/28/16 Range/Units 08:45 08:45 08:45 WBC 11.5 H (3.5-10.8) 10^3/ul RBC 4.05 (4.0-5.4) 10^6/ul Hgb 11.3 L (12.0-16.0) g/dl Hct 35 (35-47) % MCV 86 (80-97) fL MCH 28 (27-31) pg MCHC 33 (31-36) g/dl RDW 14 (10.5-15) % Plt Count 352 (150-450) 10^3/ul MPV 7 L (7.4-10.4) um3 Neut % (Auto) 82.9 (38-83) % Lymph % (Auto) 7.1 L (25-47) % [place] % (Auto) 8.6 (1-9) % Eos % (Auto) 0.8 (0-6) % Baso % (Auto) 0.6 (0-2) % Absolute Neuts (auto) 9.6 H (1.5-7.7) 10^3/ul Absolute Lymphs (auto) 0.8 L (1.0-4.8) 10^3/ul Absolute Monos (auto) 1.0 H (0-0.8) 10^3/ul Absolute Eos (auto) 0.1 (0-0.6) 10^3/ul Absolute Basos (auto) 0.1 (0-0.2) 10^3/ul Absolute Nucleated RBC 0 10^3/ul Nucleated RBC % 0 INR (Anticoag Therapy) 0.82 L (0.89-1.11) APTT 26.8 (26.0-36.3) seconds Sodium 137 (133-145) mmol/L Potassium 4.0 (3.5-5.0) mmol/L Chloride 103 (101-111) mmol/L Carbon Dioxide 27 (22-32) mmol/L Anion Gap 7 (2-11) mmol/L BUN 20 (6-24) mg/dL Creatinine 0.64 (0.51-0.95) mg/dL Est GFR ( Amer) 114.8 (>60) Est GFR (Non-Af Amer) 89.3 (>60) BUN/Creatinine Ratio 31.3 H (8-20) Glucose 137 H (70-100) mg/dL Lactic Acid (0.5-2.0) mmol/L Calcium 9.6 (8.6-10.3) mg/dL Magnesium 3.4 H (1.9-2.7) mg/dL Total Bilirubin 0.30 (0.2-1.0) mg/dL AST 14 (13-39) U/L ALT 15 (7-52) U/L Alkaline Phosphatase 86 (34-104) U/L Troponin I 0.00 (<0.04) ng/mL C-Reactive Protein 18.10 H (< 5.00) mg/L B-Natriuretic Peptide ( - 100) pg/mL Total Protein 7.1 (6.4-8.9) g/dL Albumin 4.1 (3.2-5.2) g/dL Globulin 3.0 (2-4) g/dL Albumin/Globulin Ratio 1.4 (1-3) Lipase 17 (11.0-82.0) U/L Urine Color Urine Appearance Urine pH (5-9) Ur Specific [place] (1.010-1.030) Urine Protein (Negative) Urine Ketones (Negative) Urine Blood (Negative) Urine Nitrate (Negative) Urine Bilirubin (Negative) Urine Urobilinogen (Negative) Ur Leukocyte Esterase (Negative) Urine WBC (Auto) (Absent) Urine RBC (Auto) (Absent) Ur Squamous Epith Cells (Absent) Urine Bacteria (Absent) Hyaline Casts (Absent) Urine Glucose (Negative) 09/28/16 09/28/16 09/28/16 Range/Units 08:45 08:45 09:45 WBC (3.5-10.8) 10^3/ul RBC (4.0-5.4) 10^6/ul Hgb (12.0-16.0) g/dl Hct (35-47) % MCV (80-97) fL MCH (27-31) pg MCHC (31-36) g/dl RDW (10.5-15) % Plt Count (150-450) 10^3/ul MPV (7.4-10.4) um3 Neut % (Auto) (38-83) % Lymph % (Auto) (25-47) % [place] % (Auto) (1-9) % Eos % (Auto) (0-6) % Baso % (Auto) (0-2) % Absolute Neuts (auto) (1.5-7.7) 10^3/ul Absolute Lymphs (auto) (1.0-4.8) 10^3/ul Absolute Monos (auto) (0-0.8) 10^3/ul Absolute Eos (auto) (0-0.6) 10^3/ul Absolute Basos (auto) (0-0.2) 10^3/ul Absolute Nucleated RBC 10^3/ul Nucleated RBC % INR (Anticoag Therapy) (0.89-1.11) APTT (26.0-36.3) seconds Sodium (133-145) mmol/L Potassium (3.5-5.0) mmol/L Chloride (101-111) mmol/L Carbon Dioxide (22-32) mmol/L Anion Gap (2-11) mmol/L BUN (6-24) mg/dL Creatinine (0.51-0.95) mg/dL Est GFR ( Amer) (>60) Est GFR (Non-Af Amer) (>60) BUN/Creatinine Ratio (8-20) Glucose (70-100) mg/dL Lactic Acid 2.0 (0.5-2.0) mmol/L Calcium (8.6-10.3) mg/dL Magnesium (1.9-2.7) mg/dL Total Bilirubin (0.2-1.0) mg/dL AST (13-39) U/L ALT (7-52) U/L Alkaline Phosphatase (34-104) U/L Troponin I (<0.04) ng/mL C-Reactive Protein (< 5.00) mg/L B-Natriuretic Peptide 43 ( - 100) pg/mL Total Protein (6.4-8.9) g/dL Albumin (3.2-5.2) g/dL Globulin (2-4) g/dL Albumin/Globulin Ratio (1-3) Lipase (11.0-82.0) U/L Urine Color Yellow Urine Appearance Cloudy Urine pH 5.0 (5-9) Ur Specific [place] 1.013 (1.010-1.030) Urine Protein Negative (Negative) Urine Ketones Negative (Negative) Urine Blood Negative (Negative) Urine Nitrate Positive H (Negative) Urine Bilirubin Negative (Negative) Urine Urobilinogen Negative (Negative) Ur Leukocyte Esterase 2+ H (Negative) Urine WBC (Auto) 3+(>20/hpf) H (Absent) Urine RBC (Auto) 2+(6-10/hpf) H (Absent) Ur Squamous Epith Cells Present H (Absent) Urine Bacteria 1+ H (Absent) Hyaline Casts Present H (Absent) Urine Glucose Negative (Negative) Microbiology and Other Data: Microbiology 09/28/16 11:25 Nasal Screen MRSA (PCR)(FRANKLY[facility]) - Final Nasal Mrsa Negative Diagnostic Imaging: CXR, on admission: Right paramediastinal soft tissue prominence, follow up imaging was recommended. No infiltrate noted. EKG Data: EKG, on admission: sinus tachycardia at 103 beats per minute, low voltage on the precordial leads, but no acute ischemic changes. No significant change when compared to EKG from July 2013. Assess/Plan/Problems-Billing Assessment: Ms. Rojas is an 81 yo female with a PMH of COPD with chronic O2 use (2L), HTN , and GERD who presented to the ED on 09/28 with concern for respiratory distress that is secondary to COPD exacerbation, SIRS, and acute on chronic hypoxic respiratory failure. - Patient Problems (1) COPD (chronic obstructive pulmonary disease) Code(s): J44.9 - CHRONIC OBSTRUCTIVE PULMONARY DISEASE, UNSPECIFIED Comment: With acute exacerbation and suspected bronchitis Etiology unclear, possibly secondary to infection but may also include cigarette and strong perfume exposure. Improved this AM, patient is on maximal vapotherm settings; cont attempts to wean. Plan for f/u CT chest today Continue levofloxacin, IV steroids, nebulizers, chest physiotherapy, supportive care. Continue home montelukast, Daliresp, Spiriva. Hold home prednisone (chronically on 5 mg). Patient chronically uses oxygen 2Lnc. (2) Acute and chronic respiratory failure with hypoxia Code(s): J96.21 - ACUTE AND CHRONIC RESPIRATORY FAILURE WITH HYPOXIA Comment: Secondary to COPD exacerbation Patient is chronically on 2Lnc. Continue vapotherm with attempts to wean. (3) SIRS (systemic inflammatory response syndrome) Code(s): R65.10 - SIRS OF NON-INFECTIOUS ORIGIN W/O ACUTE ORGAN DYSFUNCTION Comment: Meets criteria on admission with leukocytosis, tachycardia, and tachypnea. Suspect secondary to COPD exacerbation. (4) HTN (hypertension) Code(s): I10 - ESSENTIAL (PRIMARY) HYPERTENSION Comment: Normotensive Continue lisinopril. (5) GERD (gastroesophageal reflux disease) Code(s): K21.9 - GASTRO-ESOPHAGEAL REFLUX DISEASE WITHOUT ESOPHAGITIS Comment : Continue omeprazole. (6) Abnormal CXR Code(s): R93.8 - ABNORMAL FINDINGS ON DIAGNOSTIC IMAGING OF BODY STRUCTURES Comment: CXR on admission showed a right paramediastinal soft tissue prominence. CT chest ordered for today (7) DVT prophylaxis Comment: SQ heparin Status and Disposition: Inpatient admit. Anticipate LOS >2 days.
[2016-09-30] MEDS: Aspirin Low Dose CHEW TAB* 81 MG PO SCH (09:13)
[2016-09-30] MEDS: Lisinopril TAB* 10 MG PO SCH (09:13)
[2016-09-30] MEDS: Omeprazole CAP* 20 MG PO SCH (09:14)
[2016-09-30] MEDS: Calcium/Vitamin D TAB 250/125* TAB PO SCH (09:14)
[2016-09-30] MEDS: Montelukast Sodium TAB* 10 MG PO SCH (09:14)
[2016-09-30] MEDS: NF:Multivitamins/Minera Areds(NF) 1 CAP CAP PO SCH (09:15)
[2016-09-30] MEDS: Levofloxacin 500 MG IVPREMIX(* 500 MG/100 ML BAG IVPB SCH (09:15)
[2016-09-30] MEDS: UMECLIDIN MDI INH SCH (11:20)
[2016-09-30] MEDS: ROFLUMILAST 500 MCG PO SCH ×2 (11:43→15:09)
[2016-09-30] MEDS ORDERED: Spiriva Inhaler DEVICE* 1 EACH DEVICE SCH (12:00)
--- NOTE | 2016-09-30 14:30 | RAD ---
INDICATION: Shortness of breath COMPARISON: CTA chest August 03, 2013 TECHNIQUE: Axial source images of the chest were acquired without intravenous contrast from just above the lung apices to the base of the diaphragm. Coronal and sagittal reconstructed images were acquired. FINDINGS: Relative to the most recent CT of the chest, there has been interval collapse and consolidation of the right upper lobe (for example image 24/52 which demonstrates the right upper lobe bronchus leading to the collapsed consolidated lung). Elsewhere there are centrilobular emphysematous changes throughout the lungs. There is a pleural-based density at the dependent dose portion of the right lower lobe. The heart is normal in size. There is no evidence of pericardial effusion. There is no evidence of aortic aneurysm or dissection. Coarse calcification is noted at the thoracic aorta, coronary arteries and aortic ring. There is no readily apparent mediastinal, hilar, or axillary lymphadenopathy. Again noted is a low-density 1.9 cm lesion in the right lobe of the thyroid. There are stable wedge compression deformity of the T7 vertebral body. Elsewhere there is loss of intervertebral disc height. Limited views of the upper abdomen show no acute abnormalities. IMPRESSION: 1. Relative to the most recent CT of the chest dated August 03, 2013 there has been complete collapse and consolidation of the right upper lobe which corresponds to the density seen on the most recent chest x-ray. 2. Degenerative findings include widespread emphysematous changes.
[2016-09-30] MEDS: MINERA AREDS PO SCH (15:10)
[2016-09-30] MEDS: MULTIVITAMINS PO SCH (15:10)
[2016-09-30] MEDS: Tiotropium CAP.INH* CAP.INH/18 MCG (USE ORDER SET !) INH SCH (16:11)
--- NOTE | 2016-09-30 19:00 | PN ---
Hospitalist Progress Note CT chest reviewed. RUL consolidation and collapse read on CT. Patient in stable condition and not requiring escalating respiratory therapy. Plan to continue levofloxacin, chest physiotherapy, add flutter valve. Pulm consult requested.
[2016-10-01] MEDS: Levalbuterol 1.25MG/0.5ML NEB INH SCH ×6 (02:36→23:14)
[2016-10-01] MEDS: Heparin VIAL(*) 5000 UNITS/ML VIAL (FIVE THOUSAND) SUBCUT SCH ×3 (06:44→21:23)
[2016-10-01 07:10] LABS: Hematocrit 36 % (35-47); Hemoglobin 11.7 g/dl (12.0-16.0); Mean Corpuscular HGB Conc 32 g/dl (31-36); Mean Corpuscular Hemoglobin 28 pg (27-31); Mean Corpuscular Volume 86 fL (80-97); Mean Platelet Volume 7 um3 (7.4-10.4); Red Blood Count 4.21 10^6/ul (4.0-5.4); Red Cell Distribution Width 14 % (10.5-15); White Blood Count 25.3 10^3/ul (3.5-10.8)
[2016-10-01 07:12] LABS: Comments Flag Yes
[2016-10-01 07:13] LABS: Add Diff/Slide Review? Slide Review Added
[2016-10-01] MEDS: Tiotropium CAP.INH* CAP.INH/18 MCG (USE ORDER SET !) INH SCH (07:40)
[2016-10-01] MEDS: Mometasone/Formoter 100/5 MDI INH SCH ×2 (07:40→20:17)
--- NOTE | 2016-10-01 08:04 | PN ---
Subjective Date of Service: 10/01/16 Interval History: Patient seen and examined at bedside. Ms. Rojas reports feeling better, denies fever/chills, CP. She is starting to cough up sputum. Patient refused flutter valve, stating she can do the flutter motion without the device. She is now on Salter at 12Lnc Family History: Unchanged from Admission Social History: Unchanged from Admission Past Medical History: Unchanged from Admission Objective Active Medications: Acetaminophen (Tylenol Tab*) 650 mg PO Q4H PRN PRN Reason: PAIN Last Admin: 09/30/16 17:34 Dose: 650 mg Aspirin (Aspirin Low Dose Tab*) 81 mg PO DAILY [facility] Last Admin: 09/30/16 09:13 Dose: 81 mg Calcium/Vitamin D (Oscal D Tab 250/125*) 2 tab PO DAILY [facility] Last Admin: 09/30/16 09:14 Dose: 2 tab Device (Tiotropium Inhaler Device*) 1 each .SEE ORDER .USE w/ SPIRIVA CAPS [facility] Heparin Sodium (Porcine) (Heparin Vial(*)) 5,000 units SUBCUT Q8HR [facility] Last Admin: 10/01/16 06:44 Dose: 5,000 units Levofloxacin/Dextrose (Levaquin 500 Mg Ivpremix(*)) 500 mg in 100 mls @ 100 mls /hr IVPB Q24H [facility] Last Admin: 09/30/16 09:15 Dose: 100 mls/hr Levalbuterol HCl (Xopenex 1.25 Mg/0.5 Ml Neb.Ernestina*) 1.25 mg INH Q2H PRN PRN Reason: SOB/WHEEZING Levalbuterol HCl (Xopenex 1.25 Mg/0.5 Ml Neb.Ernestina*) 1.25 mg INH [id number] AWAKE [facility] Last Admin: 10/01/16 07:37 Dose: 1.25 mg Lisinopril (Prinivil Tab*) 10 mg PO DAILY [facility] Last Admin: 09/30/16 09:13 Dose: 10 mg Melatonin (Melatonin (Nf)) 3 mg PO BEDTIME PRN; Protocol PRN Reason: Sleep Last Admin: 09/30/16 21:56 Dose: 3 mg Methylprednisolone Sodium Succinate (Solu-Medrol 40 Mg) 40 mg IV Q12H [facility] Stop: 10/01/16 20:01 Mometasone Furoate/Formoterol Fumar (Dulera 100/5 Mdi*) 2 puff INH BID [facility] Last Admin: 10/01/16 07:40 Dose: 2 puff Montelukast Sodium (Singulair Tab*) 10 mg PO DAILY [facility] Last Admin: 09/30/16 09:14 Dose: 10 mg Multivitamins/Minerals (Preservision Areds(Multivitamins/Mineral)(Nf)) 1 cap PO DAILY [facility] Last Admin: 09/30/16 15:10 Dose: 1 cap Omeprazole (Prilosec Cap*) 20 mg PO DAILY [facility] Last Admin: 09/30/16 09:14 Dose: 20 mg Prednisone (Deltasone Tab*) 60 mg PO DAILY [facility] Stop: 10/03/16 09:01 Prednisone (Deltasone Tab*) 40 mg PO DAILY [facility] Roflumilast (Daliresp (Nf)) 500 mcg PO DAILY [facility] Last Admin: 09/30/16 15:09 Dose: 500 mcg Simethicone (Mylicon*) 80 mg PO ACHS PRN PRN Reason: bloating Sodium Chloride (Sodium Chloride 0.65% Nasal Robinson*) 1 spray BOTH NARES Q1H PRN PRN Reason: NASAL CONGESTION Tiotropium Redmon (Spiriva Cap.Inh*) 1 cap INH DAILY [facility] Last Admin: 10/01/16 07:40 Dose: 1 cap Vital Signs 09/30/16 09/30/16 09/30/16 08:00 08:30 09:00 Temperature Pulse Rate 92 100 118 Respiratory 23 18 18 Rate Blood Pressure 110/78 (mmHg) O2 Sat by Pulse 93 99 96 Oximetry 09/30/16 09/30/16 09/30/16 09:01 09:13 10:00 Temperature Pulse Rate 109 137 Respiratory 24 24 34 Rate Blood Pressure 154/68 (mmHg) O2 Sat by Pulse 96 89 Oximetry 09/30/16 09/30/16 09/30/16 10:01 11:00 11:01 Temperature Pulse Rate 128 116 120 Respiratory 20 25 28 Rate Blood Pressure 126/62 128/53 (mmHg) O2 Sat by Pulse 93 95 95 Oximetry 09/30/16 09/30/16 09/30/16 11:18 11:45 12:00 Temperature 99.0 F Pulse Rate 108 104 Respiratory 22 21 Rate Blood Pressure (mmHg) O2 Sat by Pulse 98 97 Oximetry 09/30/16 09/30/16 09/30/16 12:01 13:00 14:00 Temperature Pulse Rate 108 130 114 Respiratory 25 28 26 Rate Blood Pressure 118/50 118/63 (mmHg) O2 Sat by Pulse 96 92 96 Oximetry 09/30/16 09/30/16 09/30/16 14:06 15:00 15:04 Temperature Pulse Rate 110 Respiratory 24 29 22 Rate Blood Pressure (mmHg) O2 Sat by Pulse 94 Oximetry 09/30/16 09/30/16 09/30/16 15:42 16:00 16:02 Temperature 97.9 F Pulse Rate 107 Respiratory 23 22 Rate Blood Pressure (mmHg) O2 Sat by Pulse 94 Oximetry 09/30/16 09/30/16 09/30/16 16:22 17:00 18:00 Temperature Pulse Rate 100 114 112 Respiratory 20 18 26 Rate Blood Pressure (mmHg) O2 Sat by Pulse 98 94 93 Oximetry 09/30/16 09/30/16 09/30/16 18:13 19:00 20:00 Temperature 98.0 F Pulse Rate 110 106 Respiratory 18 23 32 Rate Blood Pressure (mmHg) O2 Sat by Pulse 94 94 Oximetry 09/30/16 09/30/16 09/30/16 20:45 21:00 22:00 Temperature Pulse Rate 82 92 82 Respiratory 18 25 22 Rate Blood Pressure (mmHg) O2 Sat by Pulse 98 96 96 Oximetry 09/30/16 09/30/16 09/30/16 22:34 23:00 23:33 Temperature Pulse Rate 86 71 Respiratory 24 23 22 Rate Blood Pressure (mmHg) O2 Sat by Pulse 95 96 Oximetry 09/30/16 10/01/16 10/01/16 23:58 00:00 00:01 Temperature 97.1 F Pulse Rate 77 77 Respiratory 25 25 Rate Blood Pressure (mmHg) O2 Sat by Pulse 93 94 Oximetry 10/01/16 10/01/16 10/01/16 01:00 02:00 02:36 Temperature Pulse Rate 78 82 75 Respiratory 25 21 12 Rate Blood Pressure (mmHg) O2 Sat by Pulse 95 94 97 Oximetry 10/01/16 10/01/16 10/01/16 03:00 04:00 04:25 Temperature 98.7 F Pulse Rate 82 Respiratory 29 19 20 Rate Blood Pressure (mmHg) O2 Sat by Pulse 94 Oximetry 10/01/16 10/01/16 10/01/16 05:00 05:37 06:00 Temperature Pulse Rate 74 78 79 Respiratory 21 22 24 Rate Blood Pressure 145/74 146/66 (mmHg) O2 Sat by Pulse 95 94 100 Oximetry Oxygen Devices in Use Now: High Flow Nasal Cannula Appearance: Elderly female, OOB to chair, in NAD Eyes: No Scleral Icterus Ears/Nose/Mouth/Throat: Clear Oropharnyx, Mucous Membranes Moist Neck: NL Appearance and Movements; NL JVP Respiratory: Symmetrical Chest Expansion and Respiratory Effort, - - exp rhonchi and wheezes Cardiovascular: NL Sounds; No Murmurs; No JVD, RRR Abdominal: NL Sounds; No Tenderness; No Distention Extremities: No Edema Neurological: Alert and Oriented x 3, NL Muscle Strength and Tone Lines/Tubes/Other Access: Clean, Dry and Intact Peripheral IV Nutrition: Taking PO's Result Diagrams: 10/01/16 06:00 09/30/16 04:45 Additional Lab and Data: Lab Results 09/28/16 09/28/16 09/28/16 Range/Units 08:45 08:45 08:45 WBC 11.5 H (3.5-10.8) 10^3/ul RBC 4.05 (4.0-5.4) 10^6/ul Hgb 11.3 L (12.0-16.0) g/dl Hct 35 (35-47) % MCV 86 (80-97) fL MCH 28 (27-31) pg MCHC 33 (31-36) g/dl RDW 14 (10.5-15) % Plt Count 352 (150-450) 10^3/ul MPV 7 L (7.4-10.4) um3 Neut % (Auto) 82.9 (38-83) % Lymph % (Auto) 7.1 L (25-47) % Bee % (Auto) 8.6 (1-9) % Eos % (Auto) 0.8 (0-6) % Baso % (Auto) 0.6 (0-2) % Absolute Neuts (auto) 9.6 H (1.5-7.7) 10^3/ul Absolute Lymphs (auto) 0.8 L (1.0-4.8) 10^3/ul Absolute Monos (auto) 1.0 H (0-0.8) 10^3/ul Absolute Eos (auto) 0.1 (0-0.6) 10^3/ul Absolute Basos (auto) 0.1 (0-0.2) 10^3/ul Absolute Nucleated RBC 0 10^3/ul Nucleated RBC % 0 INR (Anticoag Therapy) 0.82 L (0.89-1.11) APTT 26.8 (26.0-36.3) seconds Sodium 137 (133-145) mmol/L Potassium 4.0 (3.5-5.0) mmol/L Chloride 103 (101-111) mmol/L Carbon Dioxide 27 (22-32) mmol/L Anion Gap 7 (2-11) mmol/L BUN 20 (6-24) mg/dL Creatinine 0.64 (0.51-0.95) mg/dL Est GFR ( Amer) 114.8 (>60) Est GFR (Non-Af Amer) 89.3 (>60) BUN/Creatinine Ratio 31.3 H (8-20) Glucose 137 H (70-100) mg/dL Lactic Acid (0.5-2.0) mmol/L Calcium 9.6 (8.6-10.3) mg/dL Magnesium 3.4 H (1.9-2.7) mg/dL Total Bilirubin 0.30 (0.2-1.0) mg/dL AST 14 (13-39) U/L ALT 15 (7-52) U/L Alkaline Phosphatase 86 (34-104) U/L Troponin I 0.00 (<0.04) ng/mL C-Reactive Protein 18.10 H (< 5.00) mg/L B-Natriuretic Peptide ( - 100) pg/mL Total Protein 7.1 (6.4-8.9) g/dL Albumin 4.1 (3.2-5.2) g/dL Globulin 3.0 (2-4) g/dL Albumin/Globulin Ratio 1.4 (1-3) Lipase 17 (11.0-82.0) U/L Urine Color Urine Appearance Urine pH (5-9) Ur Specific [place] (1.010-1.030) Urine Protein (Negative) Urine Ketones (Negative) Urine Blood (Negative) Urine Nitrate (Negative) Urine Bilirubin (Negative) Urine Urobilinogen (Negative) Ur Leukocyte Esterase (Negative) Urine WBC (Auto) (Absent) Urine RBC (Auto) (Absent) Ur Squamous Epith Cells (Absent) Urine Bacteria (Absent) Hyaline Casts (Absent) Urine Glucose (Negative) 09/28/16 09/28/16 09/28/16 Range/Units 08:45 08:45 09:45 WBC (3.5-10.8) 10^3/ul RBC (4.0-5.4) 10^6/ul Hgb (12.0-16.0) g/dl Hct (35-47) % MCV (80-97) fL MCH (27-31) pg MCHC (31-36) g/dl RDW (10.5-15) % Plt Count (150-450) 10^3/ul MPV (7.4-10.4) um3 Neut % (Auto) (38-83) % Lymph % (Auto) (25-47) % Bee % (Auto) (1-9) % Eos % (Auto) (0-6) % Baso % (Auto) (0-2) % Absolute Neuts (auto) (1.5-7.7) 10^3/ul Absolute Lymphs (auto) (1.0-4.8) 10^3/ul Absolute Monos (auto) (0-0.8) 10^3/ul Absolute Eos (auto) (0-0.6) 10^3/ul Absolute Basos (auto) (0-0.2) 10^3/ul Absolute Nucleated RBC 10^3/ul Nucleated RBC % INR (Anticoag Therapy) (0.89-1.11) APTT (26.0-36.3) seconds Sodium (133-145) mmol/L Potassium (3.5-5.0) mmol/L Chloride (101-111) mmol/L Carbon Dioxide (22-32) mmol/L Anion Gap (2-11) mmol/L BUN (6-24) mg/dL Creatinine (0.51-0.95) mg/dL Est GFR ( Amer) (>60) Est GFR (Non-Af Amer) (>60) BUN/Creatinine Ratio (8-20) Glucose (70-100) mg/dL Lactic Acid 2.0 (0.5-2.0) mmol/L Calcium (8.6-10.3) mg/dL Magnesium (1.9-2.7) mg/dL Total Bilirubin (0.2-1.0) mg/dL AST (13-39) U/L ALT (7-52) U/L Alkaline Phosphatase (34-104) U/L Troponin I (<0.04) ng/mL C-Reactive Protein (< 5.00) mg/L B-Natriuretic Peptide 43 ( - 100) pg/mL Total Protein (6.4-8.9) g/dL Albumin (3.2-5.2) g/dL Globulin (2-4) g/dL Albumin/Globulin Ratio (1-3) Lipase (11.0-82.0) U/L Urine Color Yellow Urine Appearance Cloudy Urine pH 5.0 (5-9) Ur Specific [place] 1.013 (1.010-1.030) Urine Protein Negative (Negative) Urine Ketones Negative (Negative) Urine Blood Negative (Negative) Urine Nitrate Positive H (Negative) Urine Bilirubin Negative (Negative) Urine Urobilinogen Negative (Negative) Ur Leukocyte Esterase 2+ H (Negative) Urine WBC (Auto) 3+(>20/hpf) H (Absent) Urine RBC (Auto) 2+(6-10/hpf) H (Absent) Ur Squamous Epith Cells Present H (Absent) Urine Bacteria 1+ H (Absent) Hyaline Casts Present H (Absent) Urine Glucose Negative (Negative) Microbiology and Other Data: Microbiology 09/28/16 11:25 Nasal Screen MRSA (PCR)([facility]) - Final Nasal Mrsa Negative Diagnostic Imaging: CXR, on admission: Right paramediastinal soft tissue prominence, follow up imaging was recommended. No infiltrate noted. CT chest, 09/30: IMPRESSION: 1. Relative to the most recent CT of the chest dated August 03, 2013 there has been complete collapse and consolidation of the right upper lobe which corresponds to the density seen on the most recent chest x-ray. 2. Degenerative findings include widespread emphysematous changes. EKG Data: EKG, on admission: sinus tachycardia at 103 beats per minute, low voltage on the precordial leads, but no acute ischemic changes. No significant change when compared to EKG from July 2013. Assess/Plan/Problems-Billing Assessment: Ms. Rojas is an 81 yo female with a PMH of COPD with chronic O2 use (2L), HTN , and GERD who presented to the ED on 09/28 with concern for respiratory distress that is secondary to COPD exacerbation, SIRS, and acute on chronic hypoxic respiratory failure. - Patient Problems (1) Right upper lobe pneumonia Code(s): J18.1 - LOBAR PNEUMONIA, UNSPECIFIED ORGANISM Comment: Collapse and consolidation of right upper lobe seen on CT chest (corresponds to abnormality originally seen on CXR) Pulm consult requested Continue levofloxacin, chest physiotherapy, flutter valve (pt refuses device but simulates motion on her own) Will check urine antigens for S.pneumoniae and legionella (2) COPD (chronic obstructive pulmonary disease) Code(s): J44.9 - CHRONIC OBSTRUCTIVE PULMONARY DISEASE, UNSPECIFIED Comment: With acute exacerbation and RUL pna Improving, patient now on Salter Continue levofloxacin, IV steroids, nebulizers, chest physiotherapy, supportive care. Continue home montelukast, Daliresp, Spiriva. Hold home prednisone (chronically on 5 mg). Patient chronically uses oxygen 2Lnc. (3) Leukocytosis Code(s): D72.829 - ELEVATED WHITE BLOOD CELL COUNT, UNSPECIFIED Comment: Suspect that this is secondary to RUL pna, as well as steroids Continue to follow Patient is clinically improving (4) Acute and chronic respiratory failure with hypoxia Code(s): J96.21 - ACUTE AND CHRONIC RESPIRATORY FAILURE WITH HYPOXIA Comment: Secondary to COPD exacerbation and pna Patient is chronically on 2Lnc. Continue to wean O2 requirements, now on Salter (5) SIRS (systemic inflammatory response syndrome) Code(s): R65.10 - SIRS OF NON-INFECTIOUS ORIGIN W/O ACUTE ORGAN DYSFUNCTION Comment: Meets criteria on admission with leukocytosis, tachycardia, and tachypnea. Suspect secondary to COPD exacerbation. (6) HTN (hypertension) Code(s): I10 - ESSENTIAL (PRIMARY) HYPERTENSION Comment: Normotensive Continue lisinopril. (7) GERD (gastroesophageal reflux disease) Code(s): K21.9 - GASTRO-ESOPHAGEAL REFLUX DISEASE WITHOUT ESOPHAGITIS Comment : Continue omeprazole. (8) DVT prophylaxis Comment: SQ heparin Status and Disposition: Inpatient admit. Anticipate LOS >2 days. Plan to transfer pt from ICU if resp status remains stable.
[2016-10-01] MEDS: Aspirin Low Dose CHEW TAB* 81 MG PO SCH (08:29)
[2016-10-01] MEDS: methylPREDNISolone SOD 40 MG* 1 ML VIAL IV SCH ×2 (08:29→21:23)
[2016-10-01] MEDS: Calcium/Vitamin D TAB 250/125* TAB PO SCH (08:29)
[2016-10-01] MEDS: Omeprazole CAP* 20 MG PO SCH (08:29)
[2016-10-01] MEDS: ROFLUMILAST 500 MCG PO SCH (08:29)
[2016-10-01] MEDS: Montelukast Sodium TAB* 10 MG PO SCH (08:29)
[2016-10-01] MEDS: Lisinopril TAB* 10 MG PO SCH (08:30)
[2016-10-01] MEDS: Levofloxacin TAB* 500 MG PO SCH (08:36)
[2016-10-01] MEDS: MULTIVITAMINS PO SCH (10:14)
[2016-10-01] MEDS: MINERA AREDS PO SCH (10:14)
[2016-10-01] MEDS: Acetaminophen TAB* 325 MG PO PRN ×2 (12:02→21:29)
[2016-10-01] MEDS: Saline NASAL SPRAY 0.65%* BTL BOTH NARES PRN (17:20)
--- NOTE | 2016-10-02 00:38 | CONS ---
PULMONARY CONSULTATION REPORT: DATE OF CONSULT: 10/01/16 CONSULTATION REQUESTED BY: Rosibel Jolley NP REASON FOR CONSULT: Hypoxemia, shortness of breath. HISTORY OF PRESENT ILLNESS: The patient is an 81-year-old female with history of severe COPD, dependent on home O2 and prednisone, known to me from outpatient evaluation. The patient was brought into the emergency room for evaluation of worsening shortness of breath. The patient reported worsening shortness of breath associated with cough and sputum production. The patient denies fevers or chills. The patient also reported inability to expectorate phlegm. The patient had significant dyspnea even with minimal exertion, she also could not complete full sentences. The patient was noted to be hypoxemic in the ED, requiring up to 6 L of oxygen, which is increased from her requirement normally at 2 L at home. She was given nebulizer treatments and was admitted to ICU for close monitoring. The patient was also initiated on noninvasive ventilation. The patient was transitioned to high-flow O2. The patient also was receiving MetaNeb and chest PT. The patient was seen and examined at bedside this morning. The patient reported improvement in symptoms at rest. The patient also reported that she would get significant shortness of breath with minimal exertion. The patient denied fevers, chills, chest pain, palpitations. She is able to expectorate phlegm this morning with MetaNeb. The patient had a CT scan of the chest performed in the ED. I have personally reviewed CT scan of the chest with the patient - the patient noted to have collapse of right upper lobe with significant emphysematous changes bilaterally. No significant mediastinal or hilar adenopathy were noted. 1.9- cm lesion in right lobe of thyroid, which was seen in prior scan was also seen. PAST MEDICAL HISTORY: 1. Hypertension. 2. COPD, on O2 and chronic prednisone. 3. Recurrent COPD exacerbations in the past. 4. GERD. PAST SURGICAL HISTORY: Status post left inguinal hernia repair, status post hysterectomy and bilateral salpingo-oophorectomy, status post lumbar spine surgery. MEDICATIONS AT HOME: 1. Albuterol and Atrovent nebulizers. 2. Aspirin. 3. Calcium carbonate and vitamin D. 4. Fluconazole. 5. Lisinopril. 6. Montelukast. 7. Multivitamin with minerals. 8. Omeprazole. 9. Prednisone. 10. Daliresp. 11. Simethicone. 12. Spiriva. 13. Incruse Ellipta. ALLERGIES: AMOXICILLIN, CEFTRIAXONE, CLAVULANIC ACID. SOCIAL HISTORY: Former smoker with greater than [id number] smoking history. No history of alcohol or drug abuse. The patient lives at long term facility. REVIEW OF SYSTEMS: All 14 systems reviewed and as per HPI. PHYSICAL EXAM: The patient is sitting in chair, in no apparent distress. Vital Signs: Temperature 98, pulse 100 per minute, respiratory rate 20 per minute, O2 sat 95% on 5 L, blood pressure 114/72. HEENT: Pupils equal, reactive to light. Mucous membranes moist. No scleral icterus. Chest: Diminished air entry bilaterally, diffuse rhonchi present, no significant wheeze present. The patient been able to complete full sentences with no accessory muscle usage. Cardiovascular: S1, S2 present. Tachycardic. No significant murmurs heard. Abdomen: Obese. Bowel sounds present. Nontender, nondistended. Extremities: Normal range of motion. No edema. Neurologic: Alert, awake, oriented x3. No focal deficits. DIAGNOSTIC STUDIES/LAB DATA: WBC count 25.3, hemoglobin 11.7, hematocrit 36, platelet count 387. Sodium 136, potassium 4.5, chloride 101, bicarb 29, BUN 27, creatinine 0.73. CRP 15. CT chest as described above in HPI. IMPRESSION/RECOMMENDATIONS: 81-year-old female with significant emphysema, O2 dependent and steroid dependent, admitted with acute chronic obstructive pulmonary disease exacerbation, also found to have right upper lobe collapse. 1. Acute chronic obstructive pulmonary disease exacerbation. 2. Community-acquired pneumonia. 3. Right upper lobe atelectasis secondary to mucus plugging. 4. Hypoxemia, secondary to lung collapse. Recommend continuing with MetaNeb, chest physical therapy. The patient does not need bronchoscopy at this time. She is able to expectorate phlegm with help of nebulizer treatments and chest physical therapy. Would continue with current dose of Solu-Medrol, would not taper yet. Continue with bronchodilators. The patient with no signs of sepsis at this time. Would continue with coverage for community-acquired pneumonia. Thank you for allowing me to participate in the care of the patient. Will follow up with you. [id number]/[facility] #: [id number] [facility]
[2016-10-02] MEDS: Levalbuterol 1.25MG/0.5ML NEB INH SCH ×6 (03:29→23:21)
[2016-10-02] MEDS: Saline NASAL SPRAY 0.65%* BTL BOTH NARES PRN (04:29)
[2016-10-02] MEDS: Heparin VIAL(*) 5000 UNITS/ML VIAL (FIVE THOUSAND) SUBCUT SCH ×3 (05:47→21:37)
[2016-10-02 06:15] LABS: Hematocrit 35 % (35-47); Mean Corpuscular HGB Conc 32 g/dl (31-36); Mean Corpuscular Hemoglobin 28 pg (27-31); Mean Corpuscular Volume 87 fL (80-97); Mean Platelet Volume 7 um3 (7.4-10.4); Red Blood Count 3.97 10^6/ul (4.0-5.4); Red Cell Distribution Width 14 % (10.5-15); White Blood Count 25.6 10^3/ul (3.5-10.8)
[2016-10-02 06:17] LABS: Comments Flag Yes
[2016-10-02 06:47] LABS: BUN/Creatinine Ratio 36.1 (8-20); C Reactive Protein 107.52 mg/L (< 5.00); Calcium 9.4 mg/dL (8.6-10.3); EGFR African American 121.4 (>60); EGFR Non-African American 94.4 (>60); Potassium 4.4 mmol/L (3.5-5.0)
[2016-10-02] MEDS: Tiotropium CAP.INH* CAP.INH/18 MCG (USE ORDER SET !) INH SCH (07:43)
[2016-10-02] MEDS: Mometasone/Formoter 100/5 MDI INH SCH ×2 (07:43→20:20)
[2016-10-02] MEDS: Omeprazole CAP* 20 MG PO SCH (08:41)
[2016-10-02] MEDS: Aspirin Low Dose CHEW TAB* 81 MG PO SCH (08:41)
[2016-10-02] MEDS: Levofloxacin TAB* 500 MG PO SCH (08:41)
[2016-10-02] MEDS: Montelukast Sodium TAB* 10 MG PO SCH (08:41)
[2016-10-02] MEDS: ROFLUMILAST 500 MCG PO SCH (08:41)
[2016-10-02] MEDS: Calcium/Vitamin D TAB 250/125* TAB PO SCH (08:41)
[2016-10-02] MEDS: Lisinopril TAB* 10 MG PO SCH (08:41)
[2016-10-02] MEDS: MINERA AREDS PO SCH (08:44)
[2016-10-02] MEDS: MULTIVITAMINS PO SCH (08:44)
[2016-10-02] MEDS: methylPREDNISolone SOD 40 MG* 1 ML VIAL IV SCH ×2 (08:48→21:37)
[2016-10-02] MEDS ORDERED: predniSONE TAB* 20 MG PO SCH (09:00)
--- NOTE | 2016-10-02 10:44 | PN ---
Subjective Date of Service: 10/02/16 Interval History: Patient seen and examined at bedside. On 5Lnc, currently tachypneic, as she just finished getting washed up Denies fever/chills, CP, n/v. Overall, feels improved. Discussed discharge planning; pt does live alone in [facility]. Plan for PT/ OT. No other acute concerns. Family History: Unchanged from Admission Social History: Unchanged from Admission Past Medical History: Unchanged from Admission Objective Active Medications: Acetaminophen (Tylenol Tab*) 650 mg PO Q4H PRN PRN Reason: PAIN Last Admin: 10/01/16 21:29 Dose: 650 mg Aspirin (Aspirin Low Dose Tab*) 81 mg PO DAILY [facility] Last Admin: 10/02/16 08:41 Dose: 81 mg Calcium/Vitamin D (Oscal D Tab 250/125*) 2 tab PO DAILY [facility] Last Admin: 10/02/16 08:41 Dose: 2 tab Device (Tiotropium Inhaler Device*) 1 each .SEE ORDER .USE w/ SPIRIVA CAPS [facility] Heparin Sodium (Porcine) (Heparin Vial(*)) 5,000 units SUBCUT Q8HR [facility] Last Admin: 10/02/16 05:47 Dose: 5,000 units Heparin Sodium (Porcine) (Heparin Flush Picc/Ml/Cvc(*)) 0 ml FLUSH 0600,1800 [facility] Last Admin: 10/02/16 05:49 Dose: 1 ml Levalbuterol HCl (Xopenex 1.25 Mg/0.5 Ml Neb.Ernestina*) 1.25 mg INH Q2H PRN PRN Reason: SOB/WHEEZING Levalbuterol HCl (Xopenex 1.25 Mg/0.5 Ml Neb.Ernestina*) 1.25 mg INH [id number] AWAKE [facility] Last Admin: 10/02/16 07:43 Dose: 1.25 mg Levofloxacin (Levaquin Tab*) 500 mg PO Q24H [facility] Stop: 10/04/16 09:01 Last Admin: 10/02/16 08:41 Dose: 500 mg Lisinopril (Prinivil Tab*) 10 mg PO DAILY [facility] Last Admin: 10/02/16 08:41 Dose: 10 mg Melatonin (Melatonin (Nf)) 3 mg PO BEDTIME PRN; Protocol PRN Reason: Sleep Last Admin: 09/30/16 21:56 Dose: 3 mg Methylprednisolone Sodium Succinate (Solu-Medrol 40 Mg) 40 mg IV Q12H [facility] Last Admin: 10/02/16 08:48 Dose: 40 mg Mometasone Furoate/Formoterol Fumar (Dulera 100/5 Mdi*) 2 puff INH BID [facility] Last Admin: 10/02/16 07:43 Dose: 2 puff Montelukast Sodium (Singulair Tab*) 10 mg PO DAILY [facility] Last Admin: 10/02/16 08:41 Dose: 10 mg Multivitamins/Minerals (Preservision Areds(Multivitamins/Mineral)(Nf)) 1 cap PO DAILY [facility] Last Admin: 10/02/16 08:44 Dose: 1 cap Omeprazole (Prilosec Cap*) 20 mg PO DAILY [facility] Last Admin: 10/02/16 08:41 Dose: 20 mg Roflumilast (Daliresp (Nf)) 500 mcg PO DAILY [facility] Last Admin: 10/02/16 08:41 Dose: 500 mcg Simethicone (Mylicon*) 80 mg PO ACHS PRN PRN Reason: bloating Sodium Chloride (Sodium Chloride 0.65% Nasal [place]*) 1 spray BOTH [place]ARES Q1H PRN PRN Reason: NASAL CONGESTION Last Admin: 10/02/16 04:29 Dose: 1 spray Tiotropium [place] (Spiriva Cap.Inh*) 1 cap INH DAILY [facility] Last Admin: 10/02/16 07:43 Dose: 1 cap Vital Signs 10/01/16 10/01/16 10/01/16 11:00 12:00 13:00 Temperature 97.6 F Pulse Rate 109 104 104 Respiratory 27 25 25 Rate Blood Pressure 122/55 105/59 112/56 (mmHg) O2 Sat by Pulse 98 93 97 Oximetry 10/01/16 10/01/16 10/01/16 13:44 13:45 17:06 Temperature 98 F 98.0 F Pulse Rate 100 100 109 Respiratory 20 20 20 Rate Blood Pressure 114/72 114/72 (mmHg) O2 Sat by Pulse 96 96 95 Oximetry 10/01/16 10/01/16 10/01/16 20:00 20:14 20:27 Temperature 98.0 F Pulse Rate 98 90 98 Respiratory 18 18 20 Rate Blood Pressure 130/55 (mmHg) O2 Sat by Pulse 98 100 98 Oximetry 10/01/16 10/01/16 10/01/16 20:29 23:15 23:19 Temperature 97.5 F Pulse Rate 86 80 Respiratory 20 17 Rate Blood Pressure 133/81 (mmHg) O2 Sat by Pulse 98 98 93 Oximetry 10/02/16 10/02/16 10/02/16 03:29 03:45 05:43 Temperature 98.2 F Pulse Rate 101 125 82 Respiratory 24 16 Rate Blood Pressure 132/53 (mmHg) O2 Sat by Pulse 95 97 Oximetry 10/02/16 10/02/16 07:30 07:45 Temperature 98.3 F Pulse Rate 67 98 Respiratory 22 19 Rate Blood Pressure 121/54 (mmHg) O2 Sat by Pulse 92 99 Oximetry Oxygen Devices in Use Now: Nasal Cannula Appearance: Elderly female, sitting up in bed, NAD Eyes: No Scleral Icterus Ears/Nose/Mouth/Throat: Clear Oropharnyx, Mucous Membranes Moist Neck: NL Appearance and Movements; NL JVP Respiratory: Symmetrical Chest Expansion and Respiratory Effort, - - exp rhonchi and wheezing throughout Cardiovascular: NL Sounds; No Murmurs; No JVD, RRR Abdominal: NL Sounds; No Tenderness; No Distention Neurological: Alert and Oriented x 3, NL Muscle Strength and Tone Lines/Tubes/Other Access: Clean, Dry and Intact PICC Line Nutrition: Taking PO's Result Diagrams: 10/02/16 05:50 10/02/16 05:50 Additional Lab and Data: Lab Results 09/28/16 09/28/16 09/28/16 Range/Units 08:45 08:45 08:45 WBC 11.5 H (3.5-10.8) 10^3/ul RBC 4.05 (4.0-5.4) 10^6/ul Hgb 11.3 L (12.0-16.0) g/dl Hct 35 (35-47) % MCV 86 (80-97) fL MCH 28 (27-31) pg MCHC 33 (31-36) g/dl RDW 14 (10.5-15) % Plt Count 352 (150-450) 10^3/ul MPV 7 L (7.4-10.4) um3 Neut % (Auto) 82.9 (38-83) % Lymph % (Auto) 7.1 L (25-47) % [place] % (Auto) 8.6 (1-9) % Eos % (Auto) 0.8 (0-6) % Baso % (Auto) 0.6 (0-2) % Absolute Neuts (auto) 9.6 H (1.5-7.7) 10^3/ul Absolute Lymphs (auto) 0.8 L (1.0-4.8) 10^3/ul Absolute Monos (auto) 1.0 H (0-0.8) 10^3/ul Absolute Eos (auto) 0.1 (0-0.6) 10^3/ul Absolute Basos (auto) 0.1 (0-0.2) 10^3/ul Absolute Nucleated RBC 0 10^3/ul Nucleated RBC % 0 INR (Anticoag Therapy) 0.82 L (0.89-1.11) APTT 26.8 (26.0-36.3) seconds Sodium 137 (133-145) mmol/L Potassium 4.0 (3.5-5.0) mmol/L Chloride 103 (101-111) mmol/L Carbon Dioxide 27 (22-32) mmol/L Anion Gap 7 (2-11) mmol/L BUN 20 (6-24) mg/dL Creatinine 0.64 (0.51-0.95) mg/dL Est GFR ( Amer) 114.8 (>60) Est GFR (Non-Af Amer) 89.3 (>60) BUN/Creatinine Ratio 31.3 H (8-20) Glucose 137 H (70-100) mg/dL Lactic Acid (0.5-2.0) mmol/L Calcium 9.6 (8.6-10.3) mg/dL Magnesium 3.4 H (1.9-2.7) mg/dL Total Bilirubin 0.30 (0.2-1.0) mg/dL AST 14 (13-39) U/L ALT 15 (7-52) U/L Alkaline Phosphatase 86 (34-104) U/L Troponin I 0.00 (<0.04) ng/mL C-Reactive Protein 18.10 H (< 5.00) mg/L B-Natriuretic Peptide ( - 100) pg/mL Total Protein 7.1 (6.4-8.9) g/dL Albumin 4.1 (3.2-5.2) g/dL Globulin 3.0 (2-4) g/dL Albumin/Globulin Ratio 1.4 (1-3) Lipase 17 (11.0-82.0) U/L Urine Color Urine Appearance Urine pH (5-9) Ur Specific [place] (1.010-1.030) Urine Protein (Negative) Urine Ketones (Negative) Urine Blood (Negative) Urine Nitrate (Negative) Urine Bilirubin (Negative) Urine Urobilinogen (Negative) Ur Leukocyte Esterase (Negative) Urine WBC (Auto) (Absent) Urine RBC (Auto) (Absent) Ur Squamous Epith Cells (Absent) Urine Bacteria (Absent) Hyaline Casts (Absent) Urine Glucose (Negative) 09/28/16 09/28/16 09/28/16 Range/Units 08:45 08:45 09:45 WBC (3.5-10.8) 10^3/ul RBC (4.0-5.4) 10^6/ul Hgb (12.0-16.0) g/dl Hct (35-47) % MCV (80-97) fL MCH (27-31) pg MCHC (31-36) g/dl RDW (10.5-15) % Plt Count (150-450) 10^3/ul MPV (7.4-10.4) um3 Neut % (Auto) (38-83) % Lymph % (Auto) (25-47) % [place] % (Auto) (1-9) % Eos % (Auto) (0-6) % Baso % (Auto) (0-2) % Absolute Neuts (auto) (1.5-7.7) 10^3/ul Absolute Lymphs (auto) (1.0-4.8) 10^3/ul Absolute Monos (auto) (0-0.8) 10^3/ul Absolute Eos (auto) (0-0.6) 10^3/ul Absolute Basos (auto) (0-0.2) 10^3/ul Absolute Nucleated RBC 10^3/ul Nucleated RBC % INR (Anticoag Therapy) (0.89-1.11) APTT (26.0-36.3) seconds Sodium (133-145) mmol/L Potassium (3.5-5.0) mmol/L Chloride (101-111) mmol/L Carbon Dioxide (22-32) mmol/L Anion Gap (2-11) mmol/L BUN (6-24) mg/dL Creatinine (0.51-0.95) mg/dL Est GFR ( Amer) (>60) Est GFR (Non-Af Amer) (>60) BUN/Creatinine Ratio (8-20) Glucose (70-100) mg/dL Lactic Acid 2.0 (0.5-2.0) mmol/L Calcium (8.6-10.3) mg/dL Magnesium (1.9-2.7) mg/dL Total Bilirubin (0.2-1.0) mg/dL AST (13-39) U/L ALT (7-52) U/L Alkaline Phosphatase (34-104) U/L Troponin I (<0.04) ng/mL C-Reactive Protein (< 5.00) mg/L B-Natriuretic Peptide 43 ( - 100) pg/mL Total Protein (6.4-8.9) g/dL Albumin (3.2-5.2) g/dL Globulin (2-4) g/dL Albumin/Globulin Ratio (1-3) Lipase (11.0-82.0) U/L Urine Color Yellow Urine Appearance Cloudy Urine pH 5.0 (5-9) Ur Specific [place] 1.013 (1.010-1.030) Urine Protein Negative (Negative) Urine Ketones Negative (Negative) Urine Blood Negative (Negative) Urine Nitrate Positive H (Negative) Urine Bilirubin Negative (Negative) Urine Urobilinogen Negative (Negative) Ur Leukocyte Esterase 2+ H (Negative) Urine WBC (Auto) 3+(>20/hpf) H (Absent) Urine RBC (Auto) 2+(6-10/hpf) H (Absent) Ur Squamous Epith Cells Present H (Absent) Urine Bacteria 1+ H (Absent) Hyaline Casts Present H (Absent) Urine Glucose Negative (Negative) Microbiology and Other Data: Microbiology 09/28/16 11:25 Nasal Screen MRSA (PCR)([place]) - Final Nasal Mrsa Negative Diagnostic Imaging: CXR, on admission: Right paramediastinal soft tissue prominence, follow up imaging was recommended. No infiltrate noted. CT chest, 09/30: IMPRESSION: 1. Relative to the most recent CT of the chest dated August 03, 2013 there has been complete collapse and consolidation of the right upper lobe which corresponds to the density seen on the most recent chest x-ray. 2. Degenerative findings include widespread emphysematous changes. EKG Data: EKG, on admission: sinus tachycardia at 103 beats per minute, low voltage on the precordial leads, but no acute ischemic changes. No significant change when compared to EKG from July 2013. Assess/Plan/Problems-Billing Assessment: Ms. Rojas is an 81 yo female with a PMH of COPD with chronic O2 use (2L), HTN , and GERD who presented to the ED on 09/28 with concern for respiratory distress that is secondary to COPD exacerbation, SIRS, and acute on chronic hypoxic respiratory failure. - Patient Problems (1) Right upper lobe pneumonia Code(s): J18.1 - LOBAR PNEUMONIA, UNSPECIFIED ORGANISM Comment: Collapse and consolidation of right upper lobe seen on CT chest (corresponds to abnormality originally seen on CXR) Appreciate pulm consult Continue levofloxacin, metanebs, chest physiotherapy, flutter valve (pt refuses device but simulates motion on her own) Urine antigens for S.pneumoniae and legionella pending (2) COPD (chronic obstructive pulmonary disease) Code(s): J44.9 - CHRONIC OBSTRUCTIVE PULMONARY DISEASE, UNSPECIFIED Comment: With acute exacerbation and RUL pna Improving, patient now on [place] Continue levofloxacin, IV steroids, metanebs, nebulizers, chest physiotherapy, supportive care. Continue home montelukast, Daliresp, Spiriva. Hold home prednisone (chronically on 5 mg). Patient chronically uses oxygen 2Lnc. (3) Leukocytosis Code(s): D72.829 - ELEVATED WHITE BLOOD CELL COUNT, UNSPECIFIED Comment: Suspect that this is secondary to RUL pna, as well as steroids Continue to follow Patient is clinically improving (4) Acute and chronic respiratory failure with hypoxia Code(s): J96.21 - ACUTE AND CHRONIC RESPIRATORY FAILURE WITH HYPOXIA Comment: Secondary to COPD exacerbation and pna Patient is chronically on 2Lnc. Continue to wean O2 requirements, now on [place] (5) SIRS (systemic inflammatory response syndrome) Code(s): R65.10 - SIRS OF NON-INFECTIOUS ORIGIN W/O ACUTE ORGAN DYSFUNCTION Comment: Meets criteria on admission with leukocytosis, tachycardia, and tachypnea. Suspect secondary to COPD exacerbation. (6) HTN (hypertension) Code(s): I10 - ESSENTIAL (PRIMARY) HYPERTENSION Comment: Normotensive Continue lisinopril. (7) GERD (gastroesophageal reflux disease) Code(s): K21.9 - GASTRO-ESOPHAGEAL REFLUX DISEASE WITHOUT ESOPHAGITIS Comment : Continue omeprazole. (8) DVT prophylaxis Comment: SQ heparin Status and Disposition: Inpatient admit. Extended LOS secondary to acute on chronic hypoxic resp failure.
[2016-10-03] MEDS: Levalbuterol 1.25MG/0.5ML NEB INH SCH ×6 (02:07→22:34)
[2016-10-03] MEDS ORDERED: Alteplase (CATHFLO)* 2 MG VIAL IV ONE (02:30)
[2016-10-03] MEDS: Acetaminophen TAB* 325 MG PO PRN ×2 (02:31→14:03)
[2016-10-03] MEDS: Heparin VIAL(*) 5000 UNITS/ML VIAL (FIVE THOUSAND) SUBCUT SCH ×3 (05:37→20:55)
[2016-10-03] MEDS: Mometasone/Formoter 100/5 MDI INH SCH ×2 (07:28→19:19)
[2016-10-03] MEDS: Tiotropium CAP.INH* CAP.INH/18 MCG (USE ORDER SET !) INH SCH (07:28)
[2016-10-03] MEDS: Montelukast Sodium TAB* 10 MG PO SCH (08:04)
[2016-10-03] MEDS: Aspirin Low Dose CHEW TAB* 81 MG PO SCH (08:04)
[2016-10-03] MEDS: Lisinopril TAB* 10 MG PO SCH (08:04)
[2016-10-03] MEDS: Omeprazole CAP* 20 MG PO SCH (08:04)
[2016-10-03] MEDS: methylPREDNISolone SOD 40 MG* 1 ML VIAL IV SCH ×2 (08:05→20:55)
[2016-10-03] MEDS: MINERA AREDS PO SCH (08:05)
[2016-10-03] MEDS: Levofloxacin TAB* 500 MG PO SCH (08:05)
[2016-10-03] MEDS: MULTIVITAMINS PO SCH (08:05)
[2016-10-03] MEDS: ROFLUMILAST 500 MCG PO SCH (08:05)
[2016-10-03] MEDS: Calcium/Vitamin D TAB 250/125* TAB PO SCH (08:05)
--- NOTE | 2016-10-03 08:40 | RAD ---
INDICATION: Right upper lobe pneumonia COMPARISON: Chest x-ray ; CT chest September 30, 2016 TECHNIQUE: An AP portable view obtained at 0800 hours is submitted. FINDINGS: Bones/Soft Tissues: There are no acute bony findings. Cardiomediastinal: The cardiomediastinal silhouette is unchanged with a masslike density in the right para mediastinal region believed to represent consolidated lung. Lungs: Persistent right upper lobe abnormalities. Consider pulmonary referral for bronchoscopy to evaluate for a mass producing an obstructive process.. Stable mild left basilar abnormalities Pleura: There are no significant pleural effusions. Other: None IMPRESSION: RIGHT PARASPINAL ABNORMALITY ALSO DOCUMENTED ON RECENT CT. CONSIDER PULMONARY REFERRAL FOR BRONCHOSCOPY
[2016-10-03 09:56] LABS: Add Diff/Slide Review? Slide Review Added; Comments Flag Yes; Hematocrit 35 % (35-47); Hemoglobin 11.3 g/dl (12.0-16.0); Mean Corpuscular HGB Conc 32 g/dl (31-36); Mean Corpuscular Hemoglobin 28 pg (27-31); Mean Corpuscular Volume 86 fL (80-97); Mean Platelet Volume 7 um3 (7.4-10.4); Red Blood Count 4.08 10^6/ul (4.0-5.4); Red Cell Distribution Width 14 % (10.5-15); White Blood Count 22.9 10^3/ul (3.5-10.8)
[2016-10-03 10:18] LABS: BUN/Creatinine Ratio 35.2 (8-20); Calcium 9.4 mg/dL (8.6-10.3); EGFR African American 139.7 (>60); EGFR Non-African American 108.6 (>60)
--- NOTE | 2016-10-03 10:54 | PN ---
Subjective Date of Service: 10/03/16 Interval History: Patient seen and examined at bedside. She is OOB to chair and tachypneic after washing herself while sitting in the chair. Reports "a lot of sputum came up last night" Denies CP, fever/chills. Feels she is slowly improving. Family History: Unchanged from Admission Social History: Unchanged from Admission Past Medical History: Unchanged from Admission Objective Active Medications: Acetaminophen (Tylenol Tab*) 650 mg PO Q4H PRN PRN Reason: PAIN Last Admin: 10/03/16 02:31 Dose: 650 mg Aspirin (Aspirin Low Dose Tab*) 81 mg PO DAILY [facility] Last Admin: 10/03/16 08:04 Dose: 81 mg Calcium/Vitamin D (Oscal D Tab 250/125*) 2 tab PO DAILY [facility] Last Admin: 10/03/16 08:05 Dose: 2 tab Device (Tiotropium Inhaler Device*) 1 each .SEE ORDER .USE w/ SPIRIVA CAPS [facility] Heparin Sodium (Porcine) (Heparin Vial(*)) 5,000 units SUBCUT Q8HR [facility] Last Admin: 10/03/16 05:37 Dose: 5,000 units Heparin Sodium (Porcine) (Heparin Flush Picc/Ml/Cvc(*)) 0 ml FLUSH 0600,1800 [facility] Last Admin: 10/03/16 05:38 Dose: 1 ml Levalbuterol HCl (Xopenex 1.25 Mg/0.5 Ml Neb.Ernestina*) 1.25 mg INH Q2H PRN PRN Reason: SOB/WHEEZING Levalbuterol HCl (Xopenex 1.25 Mg/0.5 Ml Neb.Ernestina*) 1.25 mg INH [id number] AWAKE [facility] Last Admin: 10/03/16 07:28 Dose: 1.25 mg Levofloxacin (Levaquin Tab*) 500 mg PO Q24H [facility] Stop: 10/04/16 09:01 Last Admin: 10/03/16 08:05 Dose: 500 mg Lisinopril (Prinivil Tab*) 10 mg PO DAILY [facility] Last Admin: 10/03/16 08:04 Dose: 10 mg Melatonin (Melatonin (Nf)) 3 mg PO BEDTIME PRN; Protocol PRN Reason: Sleep Last Admin: 09/30/16 21:56 Dose: 3 mg Methylprednisolone Sodium Succinate (Solu-Medrol 40 Mg) 40 mg IV Q12H [facility] Last Admin: 10/03/16 08:05 Dose: 40 mg Mometasone Furoate/Formoterol Fumar (Dulera 100/5 Mdi*) 2 puff INH BID [facility] Last Admin: 10/03/16 07:28 Dose: 2 puff Montelukast Sodium (Singulair Tab*) 10 mg PO DAILY [facility] Last Admin: 10/03/16 08:04 Dose: 10 mg Multivitamins/Minerals (Preservision Areds(Multivitamins/Mineral)(Nf)) 1 cap PO DAILY [facility] Last Admin: 10/03/16 08:05 Dose: 1 cap Omeprazole (Prilosec Cap*) 20 mg PO DAILY [facility] Last Admin: 10/03/16 08:04 Dose: 20 mg Roflumilast (Daliresp (Nf)) 500 mcg PO DAILY [facility] Last Admin: 10/03/16 08:05 Dose: 500 mcg Simethicone (Mylicon*) 80 mg PO ACHS PRN PRN Reason: bloating Sodium Chloride (Sodium Chloride 0.65% Nasal [place]*) 1 spray BOTH NARES Q1H PRN PRN Reason: NASAL CONGESTION Last Admin: 10/02/16 04:29 Dose: 1 spray Tiotropium [place] (Spiriva Cap.Inh*) 1 cap INH DAILY [facility] Last Admin: 10/03/16 07:28 Dose: 1 cap Vital Signs 10/02/16 10/02/16 10/02/16 11:26 11:52 19:42 Temperature 97.6 F 98.4 F Pulse Rate 98 96 94 Respiratory 16 24 18 Rate Blood Pressure 132/58 121/47 (mmHg) O2 Sat by Pulse 98 98 98 Oximetry 10/02/16 10/02/16 10/02/16 20:00 20:25 20:26 Temperature Pulse Rate 95 95 Respiratory 20 24 Rate Blood Pressure (mmHg) O2 Sat by Pulse 95 95 95 Oximetry 10/02/16 10/03/16 10/03/16 23:37 02:08 03:36 Temperature 99.3 F 98.1 F Pulse Rate 89 101 85 Respiratory 16 24 18 Rate Blood Pressure 142/56 135/50 (mmHg) O2 Sat by Pulse 100 94 97 Oximetry 08/25/17 08/25/17 08/25/17 07:31 07:37 08:00 Temperature 97.8 F Pulse Rate 91 97 Respiratory 18 24 18 Rate Blood Pressure 137/54 (mmHg) O2 Sat by Pulse 99 97 Oximetry Oxygen Devices in Use Now: Nasal Cannula Appearance: Elderly female, OOB to chair, NAD Eyes: No Scleral Icterus Ears/Nose/Mouth/Throat: Mucous Membranes Moist - some white patches noted along edges of tongue Neck: NL Appearance and Movements; NL JVP Respiratory: Symmetrical Chest Expansion and Respiratory Effort, - - exp rhonchi throughout, coarse lung sounds Cardiovascular: NL Sounds; No Murmurs; No JVD, RRR Abdominal: NL Sounds; No Tenderness; No Distention Extremities: No Edema, No Clubbing, Cyanosis Skin: No Rash or Ulcers Neurological: Alert and Oriented x 3, NL Muscle Strength and Tone Lines/Tubes/Other Access: Clean, Dry and Intact PICC Line Nutrition: Taking PO's Result Diagrams: 10/03/16 09:38 10/03/16 09:38 Additional Lab and Data: Lab Results 09/28/16 09/28/16 09/28/16 Range/Units 08:45 08:45 08:45 WBC 11.5 H (3.5-10.8) 10^3/ul RBC 4.05 (4.0-5.4) 10^6/ul Hgb 11.3 L (12.0-16.0) g/dl Hct 35 (35-47) % MCV 86 (80-97) fL MCH 28 (27-31) pg MCHC 33 (31-36) g/dl RDW 14 (10.5-15) % Plt Count 352 (150-450) 10^3/ul MPV 7 L (7.4-10.4) um3 Neut % (Auto) 82.9 (38-83) % Lymph % (Auto) 7.1 L (25-47) % [place] % (Auto) 8.6 (1-9) % Eos % (Auto) 0.8 (0-6) % Baso % (Auto) 0.6 (0-2) % Absolute Neuts (auto) 9.6 H (1.5-7.7) 10^3/ul Absolute Lymphs (auto) 0.8 L (1.0-4.8) 10^3/ul Absolute Monos (auto) 1.0 H (0-0.8) 10^3/ul Absolute Eos (auto) 0.1 (0-0.6) 10^3/ul Absolute Basos (auto) 0.1 (0-0.2) 10^3/ul Absolute Nucleated RBC 0 10^3/ul Nucleated RBC % 0 INR (Anticoag Therapy) 0.82 L (0.89-1.11) APTT 26.8 (26.0-36.3) seconds Sodium 137 (133-145) mmol/L Potassium 4.0 (3.5-5.0) mmol/L Chloride 103 (101-111) mmol/L Carbon Dioxide 27 (22-32) mmol/L Anion Gap 7 (2-11) mmol/L BUN 20 (6-24) mg/dL Creatinine 0.64 (0.51-0.95) mg/dL Est GFR ( Amer) 114.8 (>60) Est GFR (Non-Af Amer) 89.3 (>60) BUN/Creatinine Ratio 31.3 H (8-20) Glucose 137 H (70-100) mg/dL Lactic Acid (0.5-2.0) mmol/L Calcium 9.6 (8.6-10.3) mg/dL Magnesium 3.4 H (1.9-2.7) mg/dL Total Bilirubin 0.30 (0.2-1.0) mg/dL AST 14 (13-39) U/L ALT 15 (7-52) U/L Alkaline Phosphatase 86 (34-104) U/L Troponin I 0.00 (<0.04) ng/mL C-Reactive Protein 18.10 H (< 5.00) mg/L B-Natriuretic Peptide ( - 100) pg/mL Total Protein 7.1 (6.4-8.9) g/dL Albumin 4.1 (3.2-5.2) g/dL Globulin 3.0 (2-4) g/dL Albumin/Globulin Ratio 1.4 (1-3) Lipase 17 (11.0-82.0) U/L Urine Color Urine Appearance Urine pH (5-9) Ur Specific [place] (1.010-1.030) Urine Protein (Negative) Urine Ketones (Negative) Urine Blood (Negative) Urine Nitrate (Negative) Urine Bilirubin (Negative) Urine Urobilinogen (Negative) Ur Leukocyte Esterase (Negative) Urine WBC (Auto) (Absent) Urine RBC (Auto) (Absent) Ur Squamous Epith Cells (Absent) Urine Bacteria (Absent) Hyaline Casts (Absent) Urine Glucose (Negative) 09/28/16 09/28/16 09/28/16 Range/Units 08:45 08:45 09:45 WBC (3.5-10.8) 10^3/ul RBC (4.0-5.4) 10^6/ul Hgb (12.0-16.0) g/dl Hct (35-47) % MCV (80-97) fL MCH (27-31) pg MCHC (31-36) g/dl RDW (10.5-15) % Plt Count (150-450) 10^3/ul MPV (7.4-10.4) um3 Neut % (Auto) (38-83) % Lymph % (Auto) (25-47) % [place] % (Auto) (1-9) % Eos % (Auto) (0-6) % Baso % (Auto) (0-2) % Absolute Neuts (auto) (1.5-7.7) 10^3/ul Absolute Lymphs (auto) (1.0-4.8) 10^3/ul Absolute Monos (auto) (0-0.8) 10^3/ul Absolute Eos (auto) (0-0.6) 10^3/ul Absolute Basos (auto) (0-0.2) 10^3/ul Absolute Nucleated RBC 10^3/ul Nucleated RBC % INR (Anticoag Therapy) (0.89-1.11) APTT (26.0-36.3) seconds Sodium (133-145) mmol/L Potassium (3.5-5.0) mmol/L Chloride (101-111) mmol/L Carbon Dioxide (22-32) mmol/L Anion Gap (2-11) mmol/L BUN (6-24) mg/dL Creatinine (0.51-0.95) mg/dL Est GFR ( Amer) (>60) Est GFR (Non-Af Amer) (>60) BUN/Creatinine Ratio (8-20) Glucose (70-100) mg/dL Lactic Acid 2.0 (0.5-2.0) mmol/L Calcium (8.6-10.3) mg/dL Magnesium (1.9-2.7) mg/dL Total Bilirubin (0.2-1.0) mg/dL AST (13-39) U/L ALT (7-52) U/L Alkaline Phosphatase (34-104) U/L Troponin I (<0.04) ng/mL C-Reactive Protein (< 5.00) mg/L B-Natriuretic Peptide 43 ( - 100) pg/mL Total Protein (6.4-8.9) g/dL Albumin (3.2-5.2) g/dL Globulin (2-4) g/dL Albumin/Globulin Ratio (1-3) Lipase (11.0-82.0) U/L Urine Color Yellow Urine Appearance Cloudy Urine pH 5.0 (5-9) Ur Specific [place] 1.013 (1.010-1.030) Urine Protein Negative (Negative) Urine Ketones Negative (Negative) Urine Blood Negative (Negative) Urine Nitrate Positive H (Negative) Urine Bilirubin Negative (Negative) Urine Urobilinogen Negative (Negative) Ur Leukocyte Esterase 2+ H (Negative) Urine WBC (Auto) 3+(>20/hpf) H (Absent) Urine RBC (Auto) 2+(6-10/hpf) H (Absent) Ur Squamous Epith Cells Present H (Absent) Urine Bacteria 1+ H (Absent) Hyaline Casts Present H (Absent) Urine Glucose Negative (Negative) Microbiology and Other Data: Microbiology 09/28/16 11:25 Nasal Screen MRSA (PCR)([place]) - Final Nasal [place] Negative Diagnostic Imaging: CXR, on admission: Right paramediastinal soft tissue prominence, follow up imaging was recommended. No infiltrate noted. CT chest, 09/30: IMPRESSION: 1. Relative to the most recent CT of the chest dated August 03, 2013 there has been complete collapse and consolidation of the right upper lobe which corresponds to the density seen on the most recent chest x-ray. 2. Degenerative findings include widespread emphysematous changes. EKG Data: EKG, on admission: sinus tachycardia at 103 beats per minute, low voltage on the precordial leads, but no acute ischemic changes. No significant change when compared to EKG from July 2013. Assess/Plan/Problems-Billing Assessment: Ms. Rojas is an 81 yo female with a PMH of COPD with chronic O2 use (2L), HTN , and GERD who presented to the ED on 09/28 with concern for respiratory distress that is secondary to COPD exacerbation, SIRS, and acute on chronic hypoxic respiratory failure. - Patient Problems (1) Right upper lobe pneumonia Code(s): J18.1 - LOBAR PNEUMONIA, UNSPECIFIED ORGANISM Comment: Collapse and consolidation of right upper lobe seen on CT chest and again on f/ u CXR today Appreciate pulm consult Continue levofloxacin, metanebs, chest physiotherapy, flutter valve (pt refuses device but simulates motion on her own) Urine antigens for S.pneumoniae and legionella negative (2) COPD (chronic obstructive pulmonary disease) Code(s): J44.9 - CHRONIC OBSTRUCTIVE PULMONARY DISEASE, UNSPECIFIED Comment: With acute exacerbation and RUL pna Slowly improving, patient now on [place] Continue levofloxacin, IV steroids, metanebs, nebulizers, chest physiotherapy, supportive care. Continue home montelukast, Daliresp, Spiriva. Hold home prednisone (chronically on 5 mg). Patient chronically uses oxygen 2Lnc. (3) Leukocytosis Code(s): D72.829 - ELEVATED WHITE BLOOD CELL COUNT, UNSPECIFIED Comment: Suspect that this is secondary to RUL pna, as well as steroids Continue to follow Patient is clinically improving (4) Acute and chronic respiratory failure with hypoxia Code(s): J96.21 - ACUTE AND CHRONIC RESPIRATORY FAILURE WITH HYPOXIA Comment: Secondary to COPD exacerbation and pna Patient is chronically on 2Lnc. Continue to wean O2 requirements, now on [place] (5) SIRS (systemic inflammatory response syndrome) Code(s): R65.10 - SIRS OF NON-INFECTIOUS ORIGIN W/O ACUTE ORGAN DYSFUNCTION Comment: Meets criteria on admission with leukocytosis, tachycardia, and tachypnea. Suspect secondary to COPD exacerbation. (6) HTN (hypertension) Code(s): I10 - ESSENTIAL (PRIMARY) HYPERTENSION Comment: Normotensive Continue lisinopril. (7) GERD (gastroesophageal reflux disease) Code(s): K21.9 - GASTRO-ESOPHAGEAL REFLUX DISEASE WITHOUT ESOPHAGITIS Comment : Continue omeprazole. (8) DVT prophylaxis Comment: SQ heparin Status and Disposition: Inpatient admit. Extended LOS secondary to acute on chronic hypoxic resp failure.
--- NOTE | 2016-10-03 17:04 | PN ---
Progress Note - Progress Note Date of Service: 10/03/16 - Pulm f/u Note: Pt seen and examined at bedside. Pt reports SOB is lsightly improved, has coughed lot of phleghm last night. Active Medications Generic Name Dose Route Start Last Admin Trade Name Freq PRN Reason Stop Dose Admin Acetaminophen 650 mg 09/29/16 00:33 10/03/16 14:03 Tylenol Tab* PO 650 mg Q4H PRN Administration PAIN Aspirin 81 mg 09/28/16 11:00 10/03/16 08:04 Aspirin Low Dose Tab* PO 81 mg DAILY [facility] Administration Calcium/Vitamin D 2 tab 09/29/16 09:00 10/03/16 08:05 Oscal D Tab 250/125* PO 2 tab DAILY [facility] Administration Device 1 each 09/30/16 12:00 Tiotropium Inhaler Device* .SEE ORDER .USE w/ SPIRIVA CAPS [facility] Heparin Sodium (Porcine) 5,000 units 09/28/16 14:00 10/03/16 14:08 Heparin Vial(*) SUBCUT 5,000 units Q8HR [facility] Administration Heparin Sodium (Porcine) 0 ml 10/01/16 12:00 10/03/16 05:38 Heparin Flush Picc/Ml/Cvc(*) FLUSH 1 ml 0600,1800 [facility] Administration Levalbuterol HCl 1.25 mg 09/29/16 10:25 Xopenex 1.25 Mg/0.5 Ml Neb.Ernestina* INH Q2H PRN SOB/WHEEZING Levalbuterol HCl 1.25 mg 09/29/16 15:00 10/03/16 15:32 Xopenex 1.25 Mg/0.5 Ml Neb.Ernestian* INH 1.25 mg [id number] AWAKE [facility]ERTO Administration Levofloxacin 500 mg 10/01/16 09:00 10/03/16 08:05 Levaquin Tab* PO 10/04/16 09:01 500 mg Q24H [facility] Administration Lisinopril 10 mg 09/29/16 09:00 10/03/16 08:04 Prinivil Tab* PO 10 mg DAILY [facility] Administration Melatonin 3 mg 09/30/16 00:18 09/30/16 21:56 Melatonin (Nf) PO 3 mg BEDTIME PRN Administration Sleep Protocol Methylprednisolone Sodium Succinate 40 mg 10/02/16 08:00 10/03/16 08:05 Solu-Medrol 40 Mg IV 40 mg Q12H [facility] Administration Mometasone Furoate/Formoterol Fumar 2 puff 09/28/16 11:00 10/03/16 07:28 Dulera 100/5 Mdi* INH 2 puff BID [facility] Administration Montelukast Sodium 10 mg 09/28/16 11:00 10/03/16 08:04 Singulair Tab* PO 10 mg DAILY [facility] Administration Multivitamins/Minerals 1 cap 09/30/16 10:00 10/03/16 08:05 Preservision Areds(Multivitamins/Mineral)(Nf) PO 1 cap DAILY [facility] Administration Nystatin 500,000 units 10/03/16 14:15 Nystatin Suspension* PO 10/10/16 14:04 QID [facility] Omeprazole 20 mg 09/29/16 09:00 10/03/16 08:04 Prilosec Cap* PO 20 mg DAILY [facility] Administration Roflumilast 500 mcg 09/30/16 10:00 10/03/16 08:05 Daliresp (Nf) PO 500 mcg DAILY [facility] Administration Simethicone 80 mg 09/28/16 10:02 Mylicon* PO ACHS PRN bloating Sodium Chloride 1 spray 09/30/16 04:35 10/02/16 04:29 Sodium Chloride 0.65% Nasal [place]* BOTH NARES 1 spray Q1H PRN Administration NASAL CONGESTION Tiotropium [place] 1 cap 09/30/16 12:00 10/03/16 07:28 Spiriva Cap.Inh* INH 1 cap DAILY [facility] Administration Vital Signs Temp Pulse Resp BP Pulse Ox 97.7 F 112 20 119/72 95 10/03/16 16:03 10/03/16 16:03 10/03/16 16:03 10/03/16 16:03 10/03/16 16:03 o/E: Pt in NAD, sitting up in chair HEENT: PERRLA, no JVD Lungs: dimnished air entry, scaterred wheeze present CVS: S1, S2+ Abd: Soft , BS+ Ext: No edema Neuro: No focal defecits Skin: No rash or bruise Laboratory Last Values WBC 22.9 10^3/ul (3.5-10.8) H RBC 4.08 10^6/ul (4.0-5.4) Hgb 11.3 g/dl (12.0-16.0) L Hct 35 % (35-47) MCV 86 fL (80-97) MCH 28 pg (27-31) MCHC 32 g/dl (31-36) RDW 14 % (10.5-15) Plt Count 359 10^3/ul (150-450) MPV 7 um3 (7.4-10.4) L Neut % (Auto) 94.2 % (38-83) H Lymph % (Auto) 2.2 % (25-47) L [place] % (Auto) 2.5 % (1-9) Eos % (Auto) 0 % (0-6) Baso % (Auto) 1.1 % (0-2) Absolute Neuts (auto) 21.6 10^3/ul (1.5-7.7) H Absolute Lymphs (auto) 0.5 10^3/ul (1.0-4.8) L Absolute Monos (auto) 0.6 10^3/ul (0-0.8) Absolute Eos (auto) 0 10^3/ul (0-0.6) Absolute Basos (auto) 0.2 10^3/ul (0-0.2) Absolute Nucleated RBC 0 10^3/ul Nucleated RBC % 0 INR (Anticoag Therapy) 0.82 (0.89-1.11) L APTT 26.8 seconds (26.0-36.3) Sodium 138 mmol/L (133-145) Potassium 4.0 mmol/L (3.5-5.0) Chloride 98 mmol/L (101-111) L Carbon Dioxide 33 mmol/L (22-32) H Anion Gap 7 mmol/L (2-11) BUN 19 mg/dL (6-24) Creatinine 0.54 mg/dL (0.51-0.95) Est GFR ( Amer) 139.7 (>60) Est GFR (Non-Af Amer) 108.6 (>60) BUN/Creatinine Ratio 35.2 (8-20) H Glucose 225 mg/dL (70-100) H Lactic Acid 2.0 mmol/L (0.5-2.0) Calcium 9.4 mg/dL (8.6-10.3) Magnesium 3.4 mg/dL (1.9-2.7) H Total Bilirubin 0.30 mg/dL (0.2-1.0) AST 14 U/L (13-39) ALT 15 U/L (7-52) Alkaline Phosphatase 86 U/L (34-104) Troponin I 0.00 ng/mL (<0.04) C-Reactive Protein 107.52 mg/L (< 5.00) H B-Natriuretic Peptide 43 pg/mL (-100) Total Protein 7.1 g/dL (6.4-8.9) Albumin 4.1 g/dL (3.2-5.2) Globulin 3.0 g/dL (2-4) Albumin/Globulin Ratio 1.4 (1-3) Lipase 17 U/L (11.0-82.0) Urine Color Yellow Urine Appearance Cloudy Urine pH 5.0 (5-9) Ur Specific [place] 1.013 (1.010-1.030) Urine Protein Negative (Negative) Urine Ketones Negative (Negative) Urine Blood Negative (Negative) Urine Nitrate Positive (Negative) H Urine Bilirubin Negative (Negative) Urine Urobilinogen Negative (Negative) Ur Leukocyte Esterase 2+ (Negative) H Urine WBC (Auto) 3+(>20/hpf) (Absent) H Urine RBC (Auto) 2+(6-10/hpf) (Absent) H Ur Squamous Epith Cells Present (Absent) H Urine Bacteria 1+ (Absent) H Hyaline Casts Present (Absent) H Urine Glucose Negative (Negative) CXR: Reviewed, no signficant improvement in density in RUL corresponding to RUL collpase seen on CTchest I/R: 81 y o f with significant smoking history, O2 dependant COPD a/w worsening SOB, cough found to have RUL collpase 1. PNA 2. RUL collpase likely sec to mucus plugging, pt continues to cough mucus with metanebs 3. Acute on chronic hypoxic resp failure sec to PNA, lung collpase Pt with improved O2 status since admission [place] has improved however still SOB with miniaml exertion CXR didnot demonstrate signficant chage in density in RUL Will c/w metanebs C/w steroid taper c/w O2 suppl Will rpt CT chest in 1 week, if opacity persists inspite of clinical improvement , will schedule for bronchoscopy
[2016-10-03] MEDS: Nystatin SUSPENSION* 100000 UNITS/ML 5 ML UDC PO SCH ×3 (17:05→20:54)
[2016-10-04] MEDS: Levalbuterol 1.25MG/0.5ML NEB INH SCH ×6 (02:49→23:05)
[2016-10-04] MEDS: Heparin VIAL(*) 5000 UNITS/ML VIAL (FIVE THOUSAND) SUBCUT SCH ×3 (05:50→20:55)
[2016-10-04] MEDS: Tiotropium CAP.INH* CAP.INH/18 MCG (USE ORDER SET !) INH SCH (07:36)
[2016-10-04] MEDS: Mometasone/Formoter 100/5 MDI INH SCH ×2 (07:37→19:40)
--- NOTE | 2016-10-04 07:54 | PN ---
Subjective Date of Service: 10/04/16 Interval History: Patient seen and examined at bedside. She continues to report improvement. Now on 3Lnc, denies fever/chills, SOB, CP Still becomes very dyspneic with exertion Family History: Unchanged from Admission Social History: Unchanged from Admission Past Medical History: Unchanged from Admission Objective Active Medications: Acetaminophen (Tylenol Tab*) 650 mg PO Q4H PRN PRN Reason: PAIN Last Admin: 10/03/16 14:03 Dose: 650 mg Aspirin (Aspirin Low Dose Tab*) 81 mg PO DAILY [facility] Last Admin: 10/03/16 08:04 Dose: 81 mg Calcium/Vitamin D (Oscal D Tab 250/125*) 2 tab PO DAILY [facility] Last Admin: 10/03/16 08:05 Dose: 2 tab Device (Tiotropium Inhaler Device*) 1 each .SEE ORDER .USE w/ SPIRIVA CAPS [facility] Heparin Sodium (Porcine) (Heparin Vial(*)) 5,000 units SUBCUT Q8HR [facility] Last Admin: 10/04/16 05:50 Dose: 5,000 units Heparin Sodium (Porcine) (Heparin Flush Picc/Ml/Cvc(*)) 0 ml FLUSH 0600,1800 [facility] Last Admin: 10/04/16 05:50 Dose: 1 ml Levalbuterol HCl (Xopenex 1.25 Mg/0.5 Ml Neb.Ernestina*) 1.25 mg INH Q2H PRN PRN Reason: SOB/WHEEZING Levalbuterol HCl (Xopenex 1.25 Mg/0.5 Ml Neb.Ernestina*) 1.25 mg INH [id number] AWAKE [facility] Last Admin: 10/04/16 07:36 Dose: 1.25 mg Levofloxacin (Levaquin Tab*) 500 mg PO Q24H [facility] Stop: 10/04/16 09:01 Last Admin: 10/03/16 08:05 Dose: 500 mg Lisinopril (Prinivil Tab*) 10 mg PO DAILY [facility] Last Admin: 10/03/16 08:04 Dose: 10 mg Melatonin (Melatonin (Nf)) 3 mg PO BEDTIME PRN; Protocol PRN Reason: Sleep Last Admin: 09/30/16 21:56 Dose: 3 mg Mometasone Furoate/Formoterol Fumar (Dulera 100/5 Mdi*) 2 puff INH BID [facility] Last Admin: 10/04/16 07:37 Dose: 2 puff Montelukast Sodium (Singulair Tab*) 10 mg PO DAILY [facility] Last Admin: 10/03/16 08:04 Dose: 10 mg Multivitamins/Minerals (Preservision Areds(Multivitamins/Mineral)(Nf)) 1 cap PO DAILY [facility] Last Admin: 10/03/16 08:05 Dose: 1 cap Nystatin (Nystatin Suspension*) 500,000 units PO QID [facility] Stop: 10/10/16 14:04 Last Admin: 10/03/16 20:54 Dose: 500,000 units Omeprazole (Prilosec Cap*) 20 mg PO DAILY [facility] Last Admin: 10/03/16 08:04 Dose: 20 mg Prednisone (Deltasone Tab*) 60 mg PO DAILY [facility] Stop: 10/05/16 09:01 Prednisone (Deltasone Tab*) 40 mg PO DAILY [facility] Roflumilast (Daliresp (Nf)) 500 mcg PO DAILY [facility] Last Admin: 10/03/16 08:05 Dose: 500 mcg Simethicone (Mylicon*) 80 mg PO ACHS PRN PRN Reason: bloating Sodium Chloride (Sodium Chloride 0.65% Nasal [place]*) 1 spray BOTH NARES Q1H PRN PRN Reason: NASAL CONGESTION Last Admin: 10/02/16 04:29 Dose: 1 spray Tiotropium [place] (Spiriva Cap.Inh*) 1 cap INH DAILY [facility] Last Admin: 10/04/16 07:36 Dose: 1 cap Vital Signs 10/03/16 10/03/16 10/03/16 08:00 11:22 15:34 Temperature Pulse Rate 105 111 Respiratory 18 26 24 Rate Blood Pressure (mmHg) O2 Sat by Pulse 94 92 Oximetry 10/03/16 10/03/16 10/03/16 15:35 16:03 19:13 Temperature 97.7 F Pulse Rate 111 112 103 Respiratory 24 20 18 Rate Blood Pressure 119/72 (mmHg) O2 Sat by Pulse 92 95 92 Oximetry 10/03/16 10/03/16 10/03/16 20:00 20:49 22:35 Temperature 97.8 F Pulse Rate 89 98 Respiratory 20 18 18 Rate Blood Pressure 121/57 (mmHg) O2 Sat by Pulse 99 95 Oximetry 10/03/16 10/04/1610/04/17 23:43 02:53 03:41 Temperature 98.4 F 98.1 F Pulse Rate 92 101 112 Respiratory 20 18 16 Rate Blood Pressure 115/49 132/70 (mmHg) O2 Sat by Pulse 95 89 94 Oximetry Oxygen Devices in Use Now: Nasal Cannula Appearance: Elderly female, sitting up in bed, NAD Eyes: No Scleral Icterus Ears/Nose/Mouth/Throat: Clear Oropharnyx, Mucous Membranes Moist Neck: NL Appearance and Movements; NL JVP Respiratory: Symmetrical Chest Expansion and Respiratory Effort, - - exp rhonchi , fair aeration Cardiovascular: NL Sounds; No Murmurs; No JVD, RRR Abdominal: NL Sounds; No Tenderness; No Distention Extremities: No Edema Neurological: Alert and Oriented x 3, NL Muscle Strength and Tone Lines/Tubes/Other Access: Clean, Dry and Intact PICC Line Nutrition: Taking PO's Result Diagrams: 10/03/16 09:38 10/03/16 09:38 Additional Lab and Data: Lab Results 09/28/16 09/28/16 09/28/16 Range/Units 08:45 08:45 08:45 WBC 11.5 H (3.5-10.8) 10^3/ul RBC 4.05 (4.0-5.4) 10^6/ul Hgb 11.3 L (12.0-16.0) g/dl Hct 35 (35-47) % MCV 86 (80-97) fL MCH 28 (27-31) pg MCHC 33 (31-36) g/dl RDW 14 (10.5-15) % Plt Count 352 (150-450) 10^3/ul MPV 7 L (7.4-10.4) um3 Neut % (Auto) 82.9 (38-83) % Lymph % (Auto) 7.1 L (25-47) % [place] % (Auto) 8.6 (1-9) % Eos % (Auto) 0.8 (0-6) % Baso % (Auto) 0.6 (0-2) % Absolute Neuts (auto) 9.6 H (1.5-7.7) 10^3/ul Absolute Lymphs (auto) 0.8 L (1.0-4.8) 10^3/ul Absolute Monos (auto) 1.0 H (0-0.8) 10^3/ul Absolute Eos (auto) 0.1 (0-0.6) 10^3/ul Absolute Basos (auto) 0.1 (0-0.2) 10^3/ul Absolute Nucleated RBC 0 10^3/ul Nucleated RBC % 0 INR (Anticoag Therapy) 0.82 L (0.89-1.11) APTT 26.8 (26.0-36.3) seconds Sodium 137 (133-145) mmol/L Potassium 4.0 (3.5-5.0) mmol/L Chloride 103 (101-111) mmol/L Carbon Dioxide 27 (22-32) mmol/L Anion Gap 7 (2-11) mmol/L BUN 20 (6-24) mg/dL Creatinine 0.64 (0.51-0.95) mg/dL Est GFR ( Amer) 114.8 (>60) Est GFR (Non-Af Amer) 89.3 (>60) BUN/Creatinine Ratio 31.3 H (8-20) Glucose 137 H (70-100) mg/dL Lactic Acid (0.5-2.0) mmol/L Calcium 9.6 (8.6-10.3) mg/dL Magnesium 3.4 H (1.9-2.7) mg/dL Total Bilirubin 0.30 (0.2-1.0) mg/dL AST 14 (13-39) U/L ALT 15 (7-52) U/L Alkaline Phosphatase 86 (34-104) U/L Troponin I 0.00 (<0.04) ng/mL C-Reactive Protein 18.10 H (< 5.00) mg/L B-Natriuretic Peptide ( - 100) pg/mL Total Protein 7.1 (6.4-8.9) g/dL Albumin 4.1 (3.2-5.2) g/dL Globulin 3.0 (2-4) g/dL Albumin/Globulin Ratio 1.4 (1-3) Lipase 17 (11.0-82.0) U/L Urine Color Urine Appearance Urine pH (5-9) Ur Specific [place] (1.010-1.030) Urine Protein (Negative) Urine Ketones (Negative) Urine Blood (Negative) Urine Nitrate (Negative) Urine Bilirubin (Negative) Urine Urobilinogen (Negative) Ur Leukocyte Esterase (Negative) Urine WBC (Auto) (Absent) Urine RBC (Auto) (Absent) Ur Squamous Epith Cells (Absent) Urine Bacteria (Absent) Hyaline Casts (Absent) Urine Glucose (Negative) 09/28/16 09/28/16 09/28/16 Range/Units 08:45 08:45 09:45 WBC (3.5-10.8) 10^3/ul RBC (4.0-5.4) 10^6/ul Hgb (12.0-16.0) g/dl Hct (35-47) % MCV (80-97) fL MCH (27-31) pg MCHC (31-36) g/dl RDW (10.5-15) % Plt Count (150-450) 10^3/ul MPV (7.4-10.4) um3 Neut % (Auto) (38-83) % Lymph % (Auto) (25-47) % [place] % (Auto) (1-9) % Eos % (Auto) (0-6) % Baso % (Auto) (0-2) % Absolute Neuts (auto) (1.5-7.7) 10^3/ul Absolute Lymphs (auto) (1.0-4.8) 10^3/ul Absolute Monos (auto) (0-0.8) 10^3/ul Absolute Eos (auto) (0-0.6) 10^3/ul Absolute Basos (auto) (0-0.2) 10^3/ul Absolute Nucleated RBC 10^3/ul Nucleated RBC % INR (Anticoag Therapy) (0.89-1.11) APTT (26.0-36.3) seconds Sodium (133-145) mmol/L Potassium (3.5-5.0) mmol/L Chloride (101-111) mmol/L Carbon Dioxide (22-32) mmol/L Anion Gap (2-11) mmol/L BUN (6-24) mg/dL Creatinine (0.51-0.95) mg/dL Est GFR ( Amer) (>60) Est GFR (Non-Af Amer) (>60) BUN/Creatinine Ratio (8-20) Glucose (70-100) mg/dL Lactic Acid 2.0 (0.5-2.0) mmol/L Calcium (8.6-10.3) mg/dL Magnesium (1.9-2.7) mg/dL Total Bilirubin (0.2-1.0) mg/dL AST (13-39) U/L ALT (7-52) U/L Alkaline Phosphatase (34-104) U/L Troponin I (<0.04) ng/mL C-Reactive Protein (< 5.00) mg/L B-Natriuretic Peptide 43 ( - 100) pg/mL Total Protein (6.4-8.9) g/dL Albumin (3.2-5.2) g/dL Globulin (2-4) g/dL Albumin/Globulin Ratio (1-3) Lipase (11.0-82.0) U/L Urine Color Yellow Urine Appearance Cloudy Urine pH 5.0 (5-9) Ur Specific [place] 1.013 (1.010-1.030) Urine Protein Negative (Negative) Urine Ketones Negative (Negative) Urine Blood Negative (Negative) Urine Nitrate Positive H (Negative) Urine Bilirubin Negative (Negative) Urine Urobilinogen Negative (Negative) Ur Leukocyte Esterase 2+ H (Negative) Urine WBC (Auto) 3+(>20/hpf) H (Absent) Urine RBC (Auto) 2+(6-10/hpf) H (Absent) Ur Squamous Epith Cells Present H (Absent) Urine Bacteria 1+ H (Absent) Hyaline Casts Present H (Absent) Urine Glucose Negative (Negative) Microbiology and Other Data: Microbiology 09/28/16 11:25 Nasal Screen MRSA (PCR)([place]ANK[place]) - Final Nasal Mrsa Negative Diagnostic Imaging: CXR, on admission: Right paramediastinal soft tissue prominence, follow up imaging was recommended. No infiltrate noted. CT chest, 09/30: IMPRESSION: 1. Relative to the most recent CT of the chest dated August 03, 2013 there has been complete collapse and consolidation of the right upper lobe which corresponds to the density seen on the most recent chest x-ray. 2. Degenerative findings include widespread emphysematous changes. EKG Data: EKG, on admission: sinus tachycardia at 103 beats per minute, low voltage on the precordial leads, but no acute ischemic changes. No significant change when compared to EKG from July 2013. Assess/Plan/Problems-Billing Assessment: Ms. Rojas is an 81 yo female with a PMH of COPD with chronic O2 use (2L), HTN , and GERD who presented to the ED on 09/28 with concern for respiratory distress that is secondary to COPD exacerbation, SIRS, and acute on chronic hypoxic respiratory failure. - Patient Problems (1) Right upper lobe pneumonia Code(s): J18.1 - LOBAR PNEUMONIA, UNSPECIFIED ORGANISM Comment: Collapse and consolidation of right upper lobe seen on CT chest and again on f/ u CXR Appreciate pulm consult Continue levofloxacin, metanebs, chest physiotherapy, flutter valve (pt refuses device but simulates motion on her own) Urine antigens for S.pneumoniae and legionella negative (2) COPD (chronic obstructive pulmonary disease) Code(s): J44.9 - CHRONIC OBSTRUCTIVE PULMONARY DISEASE, UNSPECIFIED Comment: With acute exacerbation and RUL pna Slowly improving, patient now on [place] Continue levofloxacin, steroids, metanebs, nebulizers, chest physiotherapy, supportive care. Start steroid taper Continue home montelukast, Daliresp, Spiriva. Hold home prednisone (chronically on 5 mg). Patient chronically uses oxygen 2Lnc. (3) Leukocytosis Code(s): D72.829 - ELEVATED WHITE BLOOD CELL COUNT, UNSPECIFIED Comment: Suspect that this is secondary to RUL pna, as well as steroids Continue to follow Patient is clinically improving (4) Acute and chronic respiratory failure with hypoxia Code(s): J96.21 - ACUTE AND CHRONIC RESPIRATORY FAILURE WITH HYPOXIA Comment: Secondary to COPD exacerbation and pna Patient is chronically on 2Lnc. Continue to wean O2 requirements, now on [place] (5) SIRS (systemic inflammatory response syndrome) Code(s): R65.10 - SIRS OF NON-INFECTIOUS ORIGIN W/O ACUTE ORGAN DYSFUNCTION Comment: Meets criteria on admission with leukocytosis, tachycardia, and tachypnea. Suspect secondary to COPD exacerbation. (6) HTN (hypertension) Code(s): I10 - ESSENTIAL (PRIMARY) HYPERTENSION Comment: Normotensive Continue lisinopril. (7) GERD (gastroesophageal reflux disease) Code(s): K21.9 - GASTRO-ESOPHAGEAL REFLUX DISEASE WITHOUT ESOPHAGITIS Comment : Continue omeprazole. (8) DVT prophylaxis Comment: SQ heparin Status and Disposition: Inpatient admit. Extended LOS secondary to acute on chronic hypoxic resp failure.
[2016-10-04] MEDS ORDERED: predniSONE TAB* 20 MG PO SCH (09:00)
[2016-10-04] MEDS: Nystatin SUSPENSION* 100000 UNITS/ML 5 ML UDC PO SCH ×4 (09:43→20:55)
[2016-10-04] MEDS: Levofloxacin TAB* 500 MG PO SCH (09:43)
[2016-10-04] MEDS: predniSONE TAB* 20 MG PO SCH (09:44)
[2016-10-04] MEDS: Acetaminophen TAB* 325 MG PO PRN (09:44)
[2016-10-04] MEDS: Montelukast Sodium TAB* 10 MG PO SCH (09:44)
[2016-10-04] MEDS: Calcium/Vitamin D TAB 250/125* TAB PO SCH (09:44)
[2016-10-04] MEDS: Aspirin Low Dose CHEW TAB* 81 MG PO SCH (09:44)
[2016-10-04] MEDS: MINERA AREDS PO SCH (09:45)
[2016-10-04] MEDS: MULTIVITAMINS PO SCH (09:45)
[2016-10-04] MEDS: Lisinopril TAB* 10 MG PO SCH (09:45)
[2016-10-04] MEDS: ROFLUMILAST 500 MCG PO SCH (09:45)
[2016-10-04] MEDS: Omeprazole CAP* 20 MG PO SCH (09:45)
[2016-10-04] MEDS ORDERED: Dextrose 50% Syringe 50 ML* 25 GM/50 ML SYRINGE IV PUSH PRN (16:05)
[2016-10-04] MEDS: Insulin LISPRO* 1 UNITS UNIT SUBCUT SCH (18:08)
[2016-10-05] MEDS: Acetaminophen TAB* 325 MG PO PRN ×2 (02:34→21:30)
[2016-10-05] MEDS: Levalbuterol 1.25MG/0.5ML NEB INH SCH ×6 (02:38→23:28)
[2016-10-05] MEDS: Heparin VIAL(*) 5000 UNITS/ML VIAL (FIVE THOUSAND) SUBCUT SCH ×3 (05:37→21:24)
[2016-10-05 07:04] LABS: Comments Flag Yes; Hematocrit 35 % (35-47); Hemoglobin 11.2 g/dl (12.0-16.0); Mean Corpuscular HGB Conc 32 g/dl (31-36); Mean Corpuscular Hemoglobin 28 pg (27-31); Mean Corpuscular Volume 87 fL (80-97); Mean Platelet Volume 7 um3 (7.4-10.4); Red Cell Distribution Width 14 % (10.5-15); White Blood Count 21.4 10^3/ul (3.5-10.8)
[2016-10-05 07:05] LABS: Add Diff/Slide Review? Slide Review Added
[2016-10-05 07:18] LABS: Calcium 9.2 mg/dL (8.6-10.3); EGFR African American 152.7 (>60); EGFR Non-African American 118.7 (>60); Potassium 3.8 mmol/L (3.5-5.0)
[2016-10-05 07:27] LABS: Immature Granulocytes 6 % (0-9); Metamyelocytes % 2 % (0-2); Myelocytes % 4 % (0-1); Neutrophil % 75 % (38-83); RBC Morphology Normal (Normal)
[2016-10-05] MEDS: Tiotropium CAP.INH* CAP.INH/18 MCG (USE ORDER SET !) INH SCH (07:34)
[2016-10-05] MEDS: Mometasone/Formoter 100/5 MDI INH SCH ×2 (07:35→19:50)
[2016-10-05] MEDS: Insulin LISPRO* 1 UNITS UNIT SUBCUT SCH ×3 (08:26→17:40)
--- NOTE | 2016-10-05 08:33 | PN ---
Subjective Date of Service: 10/05/16 Interval History: Patient seen and examined at bedside. She is eager to go home, stating that she feels better. Patient still on 4-5Lnc, activity tolerance improving. Denies fever/chills, CP. Family History: Unchanged from Admission Social History: Unchanged from Admission Past Medical History: Unchanged from Admission Objective Active Medications: Acetaminophen (Tylenol Tab*) 650 mg PO Q4H PRN PRN Reason: PAIN Last Admin: 10/05/16 02:34 Dose: 650 mg Aspirin (Aspirin Low Dose Tab*) 81 mg PO DAILY [facility] BEDS AT [facility] Last Admin: 10/04/16 09:44 Dose: 81 mg Calcium/Vitamin D (Oscal D Tab 250/125*) 2 tab PO DAILY [facility] 234 BEDS AT [facility] Last Admin: 10/04/16 09:44 Dose: 2 tab Device (Tiotropium Inhaler Device*) 1 each .SEE ORDER .USE w/ SPIRIVA CAPS COUNTS INCLUDE 234 BEDS AT THE [facility] Dextrose (D50w Syringe 50 Ml*) 12.5 gm IV PUSH .FOR FS < 60 - SS PRN PRN Reason: FS < 60 Heparin Sodium (Porcine) (Heparin Vial(*)) 5,000 units SUBCUT Q8HR [facility]S [facility]CLUDE 234 BEDS AT [facility] Last Admin: 10/05/16 05:37 Dose: 5,000 units Heparin Sodium (Porcine) (Heparin Flush Picc/Ml/Cvc(*)) 0 ml FLUSH 0600,1800 [facility]S [facility]CLUDE 234 BEDS AT [facility] Last Admin: 10/05/16 05:37 Dose: 1 ml Insulin Human Lispro (Humalog*) 0 units SUBCUT AC [facility]S INCLUDE 234 BEDS AT THE [facility] PRN Reason: Protocol Last Admin: 10/05/16 08:26 Dose: Not Given Levalbuterol HCl (Xopenex 1.25 Mg/0.5 Ml Neb.Ernestina*) 1.25 mg INH Q2H PRN PRN Reason: SOB/WHEEZING Levalbuterol HCl (Xopenex 1.25 Mg/0.5 Ml Neb.Ernestina*) 1.25 mg INH [id number] AWAKE COUNTS INCLUDE 234 BEDS AT THE [facility] Last Admin: 10/05/16 07:34 Dose: 1.25 mg Levofloxacin (Levaquin Tab*) 500 mg PO Q24H COUNTS INCLUDE 234 BEDS AT THE [facility] Stop: 10/07/16 09:01 Lisinopril (Prinivil Tab*) 10 mg PO DAILY [facility]CLUDE 234 BEDS AT [facility] Last Admin: 10/04/16 09:45 Dose: 10 mg Melatonin (Melatonin (Nf)) 3 mg PO BEDTIME PRN; Protocol PRN Reason: Sleep Last Admin: 09/30/16 21:56 Dose: 3 mg Mometasone Furoate/Formoterol Fumar (Dulera 100/5 Mdi*) 2 puff INH BID [facility]S INCLUDE 234 BEDS AT THE [facility] Last Admin: 10/05/16 07:35 Dose: 2 puff Montelukast Sodium (Singulair Tab*) 10 mg PO DAILY [facility]CLUDE 234 BEDS AT THE [facility] Last Admin: 10/04/16 09:44 Dose: 10 mg Multivitamins/Minerals (Preservision Areds(Multivitamins/Mineral)(Nf)) 1 cap PO DAILY [facility]CLUDE 234 BEDS AT THE [facility] Last Admin: 10/04/16 09:45 Dose: 1 cap Nystatin (Nystatin Suspension*) 500,000 units PO QID COUNTS INCLUDE 234 BEDS AT THE [facility] Stop: 10/10/16 14:04 Last Admin: 10/04/16 20:55 Dose: 500,000 units Omeprazole (Prilosec Cap*) 20 mg PO DAILY [facility] INCLUDE 234 BEDS AT THE [facility] Last Admin: 10/04/16 09:45 Dose: 20 mg Prednisone (Deltasone Tab*) 60 mg PO DAILY [facility]S INCLUDE 234 BEDS AT THE [facility] Stop: 10/05/16 09:01 Last Admin: 10/04/16 09:44 Dose: 60 mg Prednisone (Deltasone Tab*) 40 mg PO DAILY [facility]S INCLUDE 234 BEDS AT THE [facility] Roflumilast (Daliresp (Nf)) 500 mcg PO DAILY [facility]CLUDE 234 BEDS AT THE [facility] Last Admin: 10/04/16 09:45 Dose: 500 mcg Simethicone (Mylicon*) 80 mg PO ACHS PRN PRN Reason: bloating Sodium Chloride (Sodium Chloride 0.65% Nasal [place]*) 1 spray BOTH NARES Q1H PRN PRN Reason: NASAL CONGESTION Last Admin: 10/02/16 04:29 Dose: 1 spray Tiotropium [place] (Spiriva Cap.Inh*) 1 cap INH DAILY [facility]S INCLUDE 234 BEDS AT THE [facility] Last Admin: 10/05/16 07:34 Dose: 1 cap Vital Signs 10/04/16 10/04/16 10/04/16 11:33 11:37 15:33 Temperature Pulse Rate 99 105 103 Respiratory 24 18 16 Rate Blood Pressure 111/46 (mmHg) O2 Sat by Pulse 96 98 99 Oximetry 10/04/16 10/04/16 10/04/16 15:37 19:34 19:44 Temperature 98.3 F 98.3 F Pulse Rate 98 98 103 Respiratory 20 22 18 Rate Blood Pressure 144/57 123/46 (mmHg) O2 Sat by Pulse 96 96 94 Oximetry 10/04/16 10/04/16 10/05/16 20:00 23:44 02:40 Temperature 98.0 F Pulse Rate 95 83 Respiratory 18 22 16 Rate Blood Pressure 126/69 (mmHg) O2 Sat by Pulse 98 95 Oximetry 10/05/16 10/05/16 10/05/16 03:28 07:22 07:29 Temperature 98.3 F 98.4 F Pulse Rate 83 92 Respiratory 20 18 Rate Blood Pressure 131/55 125/37 130/48 (mmHg) O2 Sat by Pulse 97 96 Oximetry Oxygen Devices in Use Now: Nasal Cannula Appearance: Elderly female, OOB to chair, NAD Eyes: No Scleral Icterus Ears/Nose/Mouth/Throat: Mucous Membranes Moist Neck: NL Appearance and Movements; NL JVP Respiratory: Symmetrical Chest Expansion and Respiratory Effort, - - increased rhonchi on right side, left sided clearer; fair aeration throughout Cardiovascular: NL Sounds; No Murmurs; No JVD, RRR Extremities: No Edema Neurological: Alert and Oriented x 3, NL Muscle Strength and Tone Lines/Tubes/Other Access: Clean, Dry and Intact PICC Line Nutrition: Taking PO's Result Diagrams: 10/05/16 06:53 10/05/16 06:53 Additional Lab and Data: Lab Results 09/28/16 09/28/16 09/28/16 Range/Units 08:45 08:45 08:45 WBC 11.5 H (3.5-10.8) 10^3/ul RBC 4.05 (4.0-5.4) 10^6/ul Hgb 11.3 L (12.0-16.0) g/dl Hct 35 (35-47) % MCV 86 (80-97) fL MCH 28 (27-31) pg MCHC 33 (31-36) g/dl RDW 14 (10.5-15) % Plt Count 352 (150-450) 10^3/ul MPV 7 L (7.4-10.4) um3 Neut % (Auto) 82.9 (38-83) % Lymph % (Auto) 7.1 L (25-47) % [place] % (Auto) 8.6 (1-9) % Eos % (Auto) 0.8 (0-6) % Baso % (Auto) 0.6 (0-2) % Absolute Neuts (auto) 9.6 H (1.5-7.7) 10^3/ul Absolute Lymphs (auto) 0.8 L (1.0-4.8) 10^3/ul Absolute Monos (auto) 1.0 H (0-0.8) 10^3/ul Absolute Eos (auto) 0.1 (0-0.6) 10^3/ul Absolute Basos (auto) 0.1 (0-0.2) 10^3/ul Absolute Nucleated RBC 0 10^3/ul Nucleated RBC % 0 INR (Anticoag Therapy) 0.82 L (0.89-1.11) APTT 26.8 (26.0-36.3) seconds Sodium 137 (133-145) mmol/L Potassium 4.0 (3.5-5.0) mmol/L Chloride 103 (101-111) mmol/L Carbon Dioxide 27 (22-32) mmol/L Anion Gap 7 (2-11) mmol/L BUN 20 (6-24) mg/dL Creatinine 0.64 (0.51-0.95) mg/dL Est GFR ( Amer) 114.8 (>60) Est GFR (Non-Af Amer) 89.3 (>60) BUN/Creatinine Ratio 31.3 H (8-20) Glucose 137 H (70-100) mg/dL Lactic Acid (0.5-2.0) mmol/L Calcium 9.6 (8.6-10.3) mg/dL Magnesium 3.4 H (1.9-2.7) mg/dL Total Bilirubin 0.30 (0.2-1.0) mg/dL AST 14 (13-39) U/L ALT 15 (7-52) U/L Alkaline Phosphatase 86 (34-104) U/L Troponin I 0.00 (<0.04) ng/mL C-Reactive Protein 18.10 H (< 5.00) mg/L B-Natriuretic Peptide ( - 100) pg/mL Total Protein 7.1 (6.4-8.9) g/dL Albumin 4.1 (3.2-5.2) g/dL Globulin 3.0 (2-4) g/dL Albumin/Globulin Ratio 1.4 (1-3) Lipase 17 (11.0-82.0) U/L Urine Color Urine Appearance Urine pH (5-9) Ur Specific [place] (1.010-1.030) Urine Protein (Negative) Urine Ketones (Negative) Urine Blood (Negative) Urine Nitrate (Negative) Urine Bilirubin (Negative) Urine Urobilinogen (Negative) Ur Leukocyte Esterase (Negative) Urine WBC (Auto) (Absent) Urine RBC (Auto) (Absent) Ur Squamous Epith Cells (Absent) Urine Bacteria (Absent) Hyaline Casts (Absent) Urine Glucose (Negative) 09/28/16 09/28/16 09/28/16 Range/Units 08:45 08:45 09:45 WBC (3.5-10.8) 10^3/ul RBC (4.0-5.4) 10^6/ul Hgb (12.0-16.0) g/dl Hct (35-47) % MCV (80-97) fL MCH (27-31) pg MCHC (31-36) g/dl RDW (10.5-15) % Plt Count (150-450) 10^3/ul MPV (7.4-10.4) um3 Neut % (Auto) (38-83) % Lymph % (Auto) (25-47) % [place] % (Auto) (1-9) % Eos % (Auto) (0-6) % Baso % (Auto) (0-2) % Absolute Neuts (auto) (1.5-7.7) 10^3/ul Absolute Lymphs (auto) (1.0-4.8) 10^3/ul Absolute Monos (auto) (0-0.8) 10^3/ul Absolute Eos (auto) (0-0.6) 10^3/ul Absolute Basos (auto) (0-0.2) 10^3/ul Absolute Nucleated RBC 10^3/ul Nucleated RBC % INR (Anticoag Therapy) (0.89-1.11) APTT (26.0-36.3) seconds Sodium (133-145) mmol/L Potassium (3.5-5.0) mmol/L Chloride (101-111) mmol/L Carbon Dioxide (22-32) mmol/L Anion Gap (2-11) mmol/L BUN (6-24) mg/dL Creatinine (0.51-0.95) mg/dL Est GFR ( Amer) (>60) Est GFR (Non-Af Amer) (>60) BUN/Creatinine Ratio (8-20) Glucose (70-100) mg/dL Lactic Acid 2.0 (0.5-2.0) mmol/L Calcium (8.6-10.3) mg/dL Magnesium (1.9-2.7) mg/dL Total Bilirubin (0.2-1.0) mg/dL AST (13-39) U/L ALT (7-52) U/L Alkaline Phosphatase (34-104) U/L Troponin I (<0.04) ng/mL C-Reactive Protein (< 5.00) mg/L B-Natriuretic Peptide 43 ( - 100) pg/mL Total Protein (6.4-8.9) g/dL Albumin (3.2-5.2) g/dL Globulin (2-4) g/dL Albumin/Globulin Ratio (1-3) Lipase (11.0-82.0) U/L Urine Color Yellow Urine Appearance Cloudy Urine pH 5.0 (5-9) Ur Specific [place] 1.013 (1.010-1.030) Urine Protein Negative (Negative) Urine Ketones Negative (Negative) Urine Blood Negative (Negative) Urine Nitrate Positive H (Negative) Urine Bilirubin Negative (Negative) Urine Urobilinogen Negative (Negative) Ur Leukocyte Esterase 2+ H (Negative) Urine WBC (Auto) 3+(>20/hpf) H (Absent) Urine RBC (Auto) 2+(6-10/hpf) H (Absent) Ur Squamous Epith Cells Present H (Absent) Urine Bacteria 1+ H (Absent) Hyaline Casts Present H (Absent) Urine Glucose Negative (Negative) Microbiology and Other Data: Microbiology 09/28/16 11:25 Nasal Screen MRSA (PCR)([place]) - Final Nasal Mrsa Negative Diagnostic Imaging: CXR, on admission: Right paramediastinal soft tissue prominence, follow up imaging was recommended. No infiltrate noted. CT chest, 09/30: IMPRESSION: 1. Relative to the most recent CT of the chest dated August 03, 2013 there has been complete collapse and consolidation of the right upper lobe which corresponds to the density seen on the most recent chest x-ray. 2. Degenerative findings include widespread emphysematous changes. EKG Data: EKG, on admission: sinus tachycardia at 103 beats per minute, low voltage on the precordial leads, but no acute ischemic changes. No significant change when compared to EKG from July 2013. Assess/Plan/Problems-Billing Assessment: Ms. Rojas is an 81 yo female with a PMH of COPD with chronic O2 use (2L), HTN , and GERD who presented to the ED on 09/28 with concern for respiratory distress that is secondary to COPD exacerbation, SIRS, and acute on chronic hypoxic respiratory failure. - Patient Problems (1) Right upper lobe pneumonia Code(s): J18.1 - LOBAR PNEUMONIA, UNSPECIFIED ORGANISM Comment: Collapse and consolidation of right upper lobe seen on CT chest and again on f/ u CXR Repeat CT chest on 10/06 to follow RUL Appreciate pulm consult Continue levofloxacin (x10 days), metanebs, chest physiotherapy, flutter valve ( pt refuses device but simulates motion on her own) Urine antigens for S.pneumoniae and legionella negative (2) COPD (chronic obstructive pulmonary disease) Code(s): J44.9 - CHRONIC OBSTRUCTIVE PULMONARY DISEASE, UNSPECIFIED Comment: With acute exacerbation and RUL pna Slowly improving, patient now on [place] Continue levofloxacin (x 10 days), steroids, metanebs, nebulizers, chest physiotherapy, supportive care. Start steroid taper Continue home montelukast, Daliresp, Spiriva. Hold home prednisone (chronically on 5 mg). Patient chronically uses oxygen 2Lnc. (3) Leukocytosis Code(s): D72.829 - ELEVATED WHITE BLOOD CELL COUNT, UNSPECIFIED Comment: Suspect that this is secondary to RUL pna, as well as steroids Now improving Patient is clinically improving Continue levofloxacin for 10 day course. (4) Acute and chronic respiratory failure with hypoxia Code(s): J96.21 - ACUTE AND CHRONIC RESPIRATORY FAILURE WITH HYPOXIA Comment: Improving, now on 4-5Lnc Secondary to COPD exacerbation and pna Patient is chronically on 2Lnc. (5) SIRS (systemic inflammatory response syndrome) Code(s): R65.10 - SIRS OF NON-INFECTIOUS ORIGIN W/O ACUTE ORGAN DYSFUNCTION Comment: Meets criteria on admission with leukocytosis, tachycardia, and tachypnea. Suspect secondary to COPD exacerbation. (6) HTN (hypertension) Code(s): I10 - ESSENTIAL (PRIMARY) HYPERTENSION Comment: Normotensive Continue lisinopril. (7) GERD (gastroesophageal reflux disease) Code(s): K21.9 - GASTRO-ESOPHAGEAL REFLUX DISEASE WITHOUT ESOPHAGITIS Comment : Continue omeprazole. (8) DVT prophylaxis Comment: SQ heparin Status and Disposition: Inpatient admit. Extended LOS secondary to acute on chronic hypoxic resp failure.
[2016-10-05] MEDS: Nystatin SUSPENSION* 100000 UNITS/ML 5 ML UDC PO SCH ×4 (09:57→21:24)
[2016-10-05] MEDS: Calcium/Vitamin D TAB 250/125* TAB PO SCH (09:58)
[2016-10-05] MEDS: Lisinopril TAB* 10 MG PO SCH (09:58)
[2016-10-05] MEDS: Omeprazole CAP* 20 MG PO SCH (09:58)
[2016-10-05] MEDS: Montelukast Sodium TAB* 10 MG PO SCH (09:58)
[2016-10-05] MEDS: Levofloxacin TAB* 500 MG PO SCH (09:58)
[2016-10-05] MEDS: predniSONE TAB* 20 MG PO SCH (09:59)
[2016-10-05] MEDS: Aspirin Low Dose CHEW TAB* 81 MG PO SCH (09:59)
[2016-10-05] MEDS: ROFLUMILAST 500 MCG PO SCH (10:01)
[2016-10-05] MEDS: MULTIVITAMINS PO SCH (10:01)
[2016-10-05] MEDS: MINERA AREDS PO SCH (10:01)
[2016-10-06] MEDS: Levalbuterol 1.25MG/0.5ML NEB INH SCH ×6 (02:49→23:41)
[2016-10-06] MEDS: Levalbuterol 1.25MG/0.5ML NEB INH PRN (04:13)
[2016-10-06] MEDS: Heparin VIAL(*) 5000 UNITS/ML VIAL (FIVE THOUSAND) SUBCUT SCH ×3 (06:01→22:34)
[2016-10-06 06:10] LABS: Hematocrit 35 % (35-47); Hemoglobin 11.2 g/dl (12.0-16.0); Mean Corpuscular HGB Conc 33 g/dl (31-36); Mean Corpuscular Hemoglobin 28 pg (27-31); Mean Corpuscular Volume 87 fL (80-97); Red Blood Count 3.97 10^6/ul (4.0-5.4); Red Cell Distribution Width 13 % (10.5-15); White Blood Count 23.1 10^3/ul (3.5-10.8)
[2016-10-06 06:20] LABS: Add Diff/Slide Review? Slide Review Added; Comments Flag Yes
[2016-10-06] MEDS: Tiotropium CAP.INH* CAP.INH/18 MCG (USE ORDER SET !) INH SCH (08:02)
[2016-10-06] MEDS: Mometasone/Formoter 100/5 MDI INH SCH ×2 (08:02→20:15)
--- NOTE | 2016-10-06 08:04 | PN ---
Progress Note - Progress Note Date of Service: 10/06/16 - Pulm f/u note Note: Pt seen and examined at bedside. Pt reports SOB is improved, has coughed lot of phleghm and felt like her lungs opened up. Is wanting to go home. Was able to ambulate inside her room yesterday and was able to tolerate exertion Active Medications Generic Name Dose Route Start Last Admin Trade Name Adolfoq PRN Reason Stop Dose Admin Acetaminophen 650 mg 09/29/16 00:33 10/05/16 21:30 Tylenol Tab* PO 650 mg Q4H PRN Administration PAIN Aspirin 81 mg 09/28/16 11:00 10/05/16 09:59 Aspirin Low Dose Tab* PO 81 mg DAILY ROBERTO Administration Calcium/Vitamin D 2 tab 09/29/16 09:00 10/05/16 09:58 Oscal D Tab 250/125* PO 2 tab DAILY ROBERTO Administration Device 1 each 09/30/16 12:00 Tiotropium Inhaler Device* .SEE ORDER .USE w/ SPIRIVA CAPS [facility] Dextrose 12.5 gm 10/04/16 16:05 D50w Syringe 50 Ml* IV PUSH .FOR FS < 60 - SS PRN FS < 60 Heparin Sodium (Porcine) 5,000 units 09/28/16 14:00 10/06/16 06:01 Heparin Vial(*) SUBCUT 5,000 units Q8HR ROBERTO Administration Heparin Sodium (Porcine) 0 ml 10/01/16 12:00 10/06/16 06:01 Heparin Flush Picc/Ml/Cvc(*) FLUSH 1 ml 0600,1800 ROBERTO Administration Insulin Human Lispro 0 units 10/04/16 16:30 10/05/16 17:40 Humalog* SUBCUT 2 unit AC ROBERTO Administration Protocol Levalbuterol HCl 1.25 mg 09/29/16 10:25 10/06/16 04:13 Xopenex 1.25 Mg/0.5 Ml Neb.Ernestina* INH 1.25 mg Q2H PRN Administration SOB/WHEEZING Levalbuterol HCl 1.25 mg 09/29/16 15:00 10/06/16 02:49 Xopenex 1.25 Mg/0.5 Ml Neb.Ernestian* INH Not Given [id number] AWAKE [facility] Levofloxacin 500 mg 10/05/16 09:00 10/05/16 09:58 Levaquin Tab* PO 10/07/16 09:01 500 mg Q24H ROBERTO Administration Lisinopril 10 mg 09/29/16 09:00 10/05/16 09:58 Prinivil Tab* PO 10 mg DAILY ROBERTO Administration Melatonin 3 mg 09/30/16 00:18 09/30/16 21:56 Melatonin (Nf) PO 3 mg BEDTIME PRN Administration Sleep Protocol Mometasone Furoate/Formoterol Fumar 2 puff 09/28/16 11:00 10/05/16 19:50 Dulera 100/5 Mdi* INH 2 puff BID ROBERTO Administration Montelukast Sodium 10 mg 09/28/16 11:00 10/05/16 09:58 Singulair Tab* PO 10 mg DAILY ROBERTO Administration Multivitamins/Minerals 1 cap 09/30/16 10:00 10/05/16 10:01 Preservision Areds(Multivitamins/Mineral)(Nf) PO 1 cap DAILY ROBERTO Administration Nystatin 500,000 units 10/03/16 14:15 10/05/16 21:24 Nystatin Suspension* PO 10/10/16 14:04 500,000 units QID ROBERTO Administration Omeprazole 20 mg 09/29/16 09:00 10/05/16 09:58 Prilosec Cap* PO 20 mg DAILY ROBERTO Administration Prednisone 40 mg 10/06/16 09:00 Deltasone Tab* PO DAILY ROBERTO Roflumilast 500 mcg 09/30/16 10:00 10/05/16 10:01 Daliresp (Nf) PO 500 mcg DAILY ROBERTO Administration Simethicone 80 mg 09/28/16 10:02 Mylicon* PO ACHS PRN bloating Sodium Chloride 1 spray 09/30/16 04:35 10/02/16 04:29 Sodium Chloride 0.65% Nasal [place]* BOTH NARES 1 spray Q1H PRN Administration NASAL CONGESTION Tiotropium Likely 1 cap 09/30/16 12:00 10/05/16 07:34 Spiriva Cap.Inh* INH 1 cap DAILY ROBERTO Administration Vital Signs Temp Pulse Resp BP Pulse Ox 97.6 F 91 20 132/48 98 10/06/16 04:05 10/06/16 04:13 10/06/16 04:13 10/06/16 04:05 10/06/16 04:13 o/E: Pt in NAD, sitting up in chair HEENT: PERRLA, no JVD Lungs: dimnished air entry, scaterred wheeze present, no accessory muscle usage CVS: S1, S2+, regular Abd: Soft , BS+ Ext: No edema Neuro: No focal defecits Skin: No rash or bruise Laboratory Results - last 24 hr 10/05/16 10/05/16 10/06/16 11:46 17:00 05:00 WBC 23.1 H RBC 3.97 L Hgb 11.2 L Hct 35 MCV 87 MCH 28 MCHC 33 RDW 13 Plt Count Not Reportable Neut % (Auto) 82.9 Lymph % (Auto) 9.6 L [place] % (Auto) 6.9 Eos % (Auto) 0.1 Baso % (Auto) 0.5 Absolute Neuts (auto) 19.2 H Absolute Lymphs (auto) 2.2 Absolute Monos (auto) 1.6 H Absolute Eos (auto) 0 Absolute Basos (auto) 0.1 Absolute Nucleated RBC 0.01 Nucleated RBC % 0.1 POC Glucose (mg/dL) 176 H 193 H CXR: Rpt CXR, no signficant improvement in density in RUL corresponding to RUL collpase seen on CTchest CT chest to be repeated today I/R: 81 y o f with significant smoking history, O2 dependant COPD a/w worsening SOB, cough found to have RUL collpase 1. PNA 2. RUL collpase likely sec to mucus plugging, pt continues to cough mucus with metanebs 3. Acute on chronic hypoxic resp failure sec to PNA, lung collpase, improving Pt with improved FiO2 requirement MENCHACA has improved CXR didnot demonstrate signficant chage in density in RUL, will f/u with rpt CT chest today If opacity persists will schedule bronchoscopy for airway evaluation Will c/w metanebs C/w steroid taper c/w O2 suppl Plan discussed with pt Possible d/c today after CT chest
--- NOTE | 2016-10-06 09:02 | RAD ---
INDICATION: Right upper lobe collapse. COMPARISON: Comparison is made with a prior chest x-ray study from October 03, 2016, prior CT angiogram of the chest from August 03, [address] of the chest from September 30, 2016. TECHNIQUE: A CT scan of the chest was performed without intravenous contrast. Contiguous axial sections were obtained from the lung apices through the lung bases. Images were reconstructed in the coronal and sagittal planes. FINDINGS: There is complete collapse of the right upper lobe which is unchanged from the recent prior CT study. No mass is appreciated. There is a new patchy infiltrate present in the left upper and lower lobes most consistent with pneumonia. No pleural effusion is seen. No significant enlarged mediastinal or hilar lymph nodes are seen. The heart is within normal limits in size. No pericardial effusion is present. The thoracic aorta is normal in caliber. There is moderate calcific plaque present. There is a 1.9 cm nodule within the inferior portion of the right thyroid lobe which is unchanged from the prior studies most consistent with a benign nodule. There are moderate to severe chronic compression fractures of mid dorsal vertebral bodies which appear unchanged. IMPRESSION: 1. RIGHT UPPER LOBE COLLAPSE, UNCHANGED, CONSIDER BRONCHOSCOPY FOR FURTHER EVALUATION. 2. NEW LEFT UPPER AND RIGHT LOWER LOBE INFILTRATES MOST CONSISTENT WITH PNEUMONIA. 3. MODERATE TO SEVERE CHRONIC COMPRESSION FRACTURES OF MID DORSAL VERTEBRA, UNCHANGED.
[2016-10-06] MEDS: Insulin LISPRO* 1 UNITS UNIT SUBCUT SCH ×3 (09:17→17:32)
[2016-10-06] MEDS: Calcium/Vitamin D TAB 250/125* TAB PO SCH (09:25)
[2016-10-06] MEDS: Nystatin SUSPENSION* 100000 UNITS/ML 5 ML UDC PO SCH ×4 (09:30→22:34)
[2016-10-06] MEDS: ROFLUMILAST 500 MCG PO SCH (09:30)
[2016-10-06] MEDS: predniSONE TAB* 20 MG PO SCH (09:31)
[2016-10-06] MEDS: Montelukast Sodium TAB* 10 MG PO SCH (09:31)
[2016-10-06] MEDS: Omeprazole CAP* 20 MG PO SCH (09:31)
[2016-10-06] MEDS: MINERA AREDS PO SCH (09:32)
[2016-10-06] MEDS: Levofloxacin TAB* 500 MG PO SCH (09:32)
[2016-10-06] MEDS: Lisinopril TAB* 10 MG PO SCH (09:32)
[2016-10-06] MEDS: Aspirin Low Dose CHEW TAB* 81 MG PO SCH (09:32)
[2016-10-06] MEDS: Acetaminophen TAB* 325 MG PO PRN ×2 (09:32→22:34)
[2016-10-06] MEDS: MULTIVITAMINS PO SCH (09:32)
--- NOTE | 2016-10-06 15:09 | PN ---
Subjective Date of Service: 10/06/16 Interval History: This is an 81 yo female with COPD who was admitted with PNA and COPD exacerbation with collapsed RUL likely secondary to mucus plugging. She reports improvement in her dyspnea, but her chest still feels "heavy" with a productive cough. Unfortunately, her CT from today does not demonstrate any improvement. She denies any new symptoms including abd pain, n/v. Objective Active Medications: Acetaminophen (Tylenol Tab*) 650 mg PO Q4H PRN PRN Reason: PAIN Last Admin: 10/06/16 09:32 Dose: 650 mg Aspirin (Aspirin Low Dose Tab*) 81 mg PO DAILY ROBERTO Last Admin: 10/06/16 09:32 Dose: 81 mg Calcium/Vitamin D (Oscal D Tab 250/125*) 2 tab PO DAILY [facility] Last Admin: 10/06/16 09:25 Dose: 2 tab Device (Tiotropium Inhaler Device*) 1 each .SEE ORDER .USE w/ SPIRIVA CAPS [facility] Dextrose (D50w Syringe 50 Ml*) 12.5 gm IV PUSH .FOR FS < 60 - SS PRN PRN Reason: FS < 60 Heparin Sodium (Porcine) (Heparin Vial(*)) 5,000 units SUBCUT Q8HR [facility] Last Admin: 10/06/16 13:18 Dose: 5,000 units Heparin Sodium (Porcine) (Heparin Flush Picc/Ml/Cvc(*)) 0 ml FLUSH 0600,1800 [facility] Last Admin: 10/06/16 06:01 Dose: 1 ml Insulin Human Lispro (Humalog*) 0 units SUBCUT AC [facility] PRN Reason: Protocol Last Admin: 10/06/16 13:18 Dose: 1 unit Levalbuterol HCl (Xopenex 1.25 Mg/0.5 Ml Neb.Ernestina*) 1.25 mg INH Q2H PRN PRN Reason: SOB/WHEEZING Last Admin: 10/06/16 04:13 Dose: 1.25 mg Levalbuterol HCl (Xopenex 1.25 Mg/0.5 Ml Neb.Ernestina*) 1.25 mg INH [id number] AWAKE [facility] Last Admin: 10/06/16 10:55 Dose: 1.25 mg Levofloxacin (Levaquin Tab*) 500 mg PO Q24H [facility] Stop: 10/07/16 09:01 Last Admin: 10/06/16 09:32 Dose: 500 mg Lisinopril (Prinivil Tab*) 10 mg PO DAILY [facility] Last Admin: 10/06/16 09:32 Dose: 10 mg Melatonin (Melatonin (Nf)) 3 mg PO BEDTIME PRN; Protocol PRN Reason: Sleep Last Admin: 09/30/16 21:56 Dose: 3 mg Mometasone Furoate/Formoterol Fumar (Dulera 100/5 Mdi*) 2 puff INH BID [facility] Last Admin: 10/06/16 08:02 Dose: 2 puff Montelukast Sodium (Singulair Tab*) 10 mg PO DAILY [facility] Last Admin: 10/06/16 09:31 Dose: 10 mg Multivitamins/Minerals (Preservision Areds(Multivitamins/Mineral)(Nf)) 1 cap PO DAILY [facility] Last Admin: 10/06/16 09:32 Dose: 1 cap Nystatin (Nystatin Suspension*) 500,000 units PO QID [facility] Stop: 10/10/16 14:04 Last Admin: 10/06/16 13:18 Dose: 500,000 units Omeprazole (Prilosec Cap*) 20 mg PO DAILY [facility] Last Admin: 10/06/16 09:31 Dose: 20 mg Prednisone (Deltasone Tab*) 40 mg PO DAILY [facility] Last Admin: 10/06/16 09:31 Dose: 40 mg Roflumilast (Daliresp (Nf)) 500 mcg PO DAILY [facility] Last Admin: 10/06/16 09:30 Dose: 500 mcg Simethicone (Mylicon*) 80 mg PO ACHS PRN PRN Reason: bloating Sodium Chloride (Sodium Chloride 0.65% Nasal [place]*) 1 spray BOTH NARES Q1H PRN PRN Reason: NASAL CONGESTION Last Admin: 10/02/16 04:29 Dose: 1 spray Tiotropium [place] (Spiriva Cap.Inh*) 1 cap INH DAILY [facility] Last Admin: 10/06/16 08:02 Dose: 1 cap Vital Signs: Temp Pulse Resp BP Pulse Ox 97.6 F 110 18 96/67 94 10/06/16 08:33 10/06/16 10:59 10/06/16 10:59 10/06/16 08:33 10/06/16 10:59 Oxygen Devices in Use Now: Nasal Cannula Appearance: Well appearing elderly female in NAD Respiratory: - - reduced breath sounds diffusely, most notably in RUL with occasional wheeze and rhonchi Cardiovascular: NL Sounds; No Murmurs; No JVD, RRR Extremities: - - trace RLE edema, no LLE edema Skin: No Rash or Ulcers Neurological: Alert and Oriented x 3 Result Diagrams: 10/06/16 05:00 10/05/16 06:53 Additional Lab and Data: . Microbiology and Other Data: Microbiology 09/28/16 11:25 Nasal Screen MRSA (PCR)(FRANKLYN) - Final Nasal Mrsa Negative Diagnostic Imaging: CXR, on admission: Right paramediastinal soft tissue prominence, follow up imaging was recommended. No infiltrate noted. CT chest, 09/30: IMPRESSION: 1. Relative to the most recent CT of the chest dated August 03, 2013 there has been complete collapse and consolidation of the right upper lobe which corresponds to the density seen on the most recent chest x-ray. 2. Degenerative findings include widespread emphysematous changes. CT chest 10/06 - no change to RUL collapse, new infiltrates noted in CESAR and RLL EKG Data: EKG, on admission: sinus tachycardia at 103 beats per minute, low voltage on the precordial leads, but no acute ischemic changes. No significant change when compared to EKG from July 2013. Assess/Plan/Problems-Billing Assessment: Ms. Rojas is an 81 yo female with a PMH of COPD with chronic O2 use (2L), HTN , and GERD who presented to the ED on 09/28 with concern for respiratory distress that is secondary to COPD exacerbation, SIRS, and acute on chronic hypoxic respiratory failure. - Patient Problems (1) Right upper lobe pneumonia Comment: Collapse and consolidation of right upper lobe seen on CT chest and again on f/ u CXR as well as repeat CT today Appreciate pulm consult Continue levofloxacin (x10 days), metanebs, chest physiotherapy, flutter valve ( pt refuses device but simulates motion on her own) Urine antigens for S.pneumoniae and legionella negative Without noted improvement on imaging, next step is bronchoscopy. Will work to coordinate with pulmonology (2) Acute and chronic respiratory failure with hypoxia Comment: Improving, now down to 3L supp O2 Secondary to COPD exacerbation and pna Patient is chronically on 2Lnc. (3) COPD (chronic obstructive pulmonary disease) Comment: With acute exacerbation and RUL pna Slowly improving, down to 3L supp O2 Continue levofloxacin (x 10 days), steroids, metanebs, nebulizers, chest physiotherapy, supportive care. Cont steroid taper Continue home montelukast, Daliresp, Spiriva. Hold home prednisone (chronically on 5 mg). Patient chronically uses oxygen 2Lnc. (4) SIRS (systemic inflammatory response syndrome) Comment: Secondary to PNA Meets criteria on admission with leukocytosis, tachycardia, and tachypnea. (5) GERD (gastroesophageal reflux disease) Comment: Continue omeprazole. (6) HTN (hypertension) Comment: Normotensive Continue lisinopril. (7) DVT prophylaxis Comment: SQ heparin Status and Disposition: Inpatient admit. Now pending bronchoscopy.
[2016-10-07] MEDS: Levalbuterol 1.25MG/0.5ML NEB INH SCH ×5 (02:43→20:12)
[2016-10-07] MEDS: Heparin VIAL(*) 5000 UNITS/ML VIAL (FIVE THOUSAND) SUBCUT SCH ×3 (06:43→21:52)
[2016-10-07] MEDS: Insulin LISPRO* 1 UNITS UNIT SUBCUT SCH ×3 (08:30→17:47)
[2016-10-07] MEDS: Mometasone/Formoter 100/5 MDI INH SCH ×2 (08:51→20:16)
[2016-10-07] MEDS: Tiotropium CAP.INH* CAP.INH/18 MCG (USE ORDER SET !) INH SCH (08:51)
[2016-10-07] MEDS: Lisinopril TAB* 10 MG PO SCH (09:08)
[2016-10-07] MEDS: Levofloxacin TAB* 500 MG PO SCH (09:23)
[2016-10-07] MEDS: Nystatin SUSPENSION* 100000 UNITS/ML 5 ML UDC PO SCH ×4 (09:23→21:52)
[2016-10-07] MEDS: Calcium/Vitamin D TAB 250/125* TAB PO SCH (09:23)
[2016-10-07] MEDS: Montelukast Sodium TAB* 10 MG PO SCH (09:23)
[2016-10-07] MEDS: predniSONE TAB* 20 MG PO SCH (09:24)
[2016-10-07] MEDS: MULTIVITAMINS PO SCH (09:24)
[2016-10-07] MEDS: MINERA AREDS PO SCH (09:24)
[2016-10-07] MEDS: Omeprazole CAP* 20 MG PO SCH (09:24)
[2016-10-07] MEDS: ROFLUMILAST 500 MCG PO SCH (09:24)
[2016-10-07] MEDS: Aspirin Low Dose CHEW TAB* 81 MG PO SCH (09:29)
--- NOTE | 2016-10-07 11:10 | PN ---
Subjective Date of Service: 10/07/16 Interval History: Patient offers no acute complaints overnight. Cont with cough and mild dyspnea. Bronchoscopy is pending for later this afternoon with Dr Oliver. Objective Active Medications: Acetaminophen (Tylenol Tab*) 650 mg PO Q4H PRN PRN Reason: PAIN Last Admin: 10/06/16 22:34 Dose: 650 mg Aspirin (Aspirin Low Dose Tab*) 81 mg PO DAILY [facility] Last Admin: 10/07/16 09:29 Dose: 81 mg Calcium/Vitamin D (Oscal D Tab 250/125*) 2 tab PO DAILY [facility] Last Admin: 10/07/16 09:23 Dose: 2 tab Device (Tiotropium Inhaler Device*) 1 each .SEE ORDER .USE w/ SPIRIVA CAPS [facility] Dextrose (D50w Syringe 50 Ml*) 12.5 gm IV PUSH .FOR FS < 60 - SS PRN PRN Reason: FS < 60 Heparin Sodium (Porcine) (Heparin Vial(*)) 5,000 units SUBCUT Q8HR [facility] Last Admin: 10/07/16 06:43 Dose: 5,000 units Heparin Sodium (Porcine) (Heparin Flush Picc/Ml/Cvc(*)) 0 ml FLUSH 0600,1800 [facility] Last Admin: 10/07/16 06:42 Dose: 1 ml Insulin Human Lispro (Humalog*) 0 units SUBCUT AC [facility] PRN Reason: Protocol Last Admin: 10/07/16 08:30 Dose: Not Given Levalbuterol HCl (Xopenex 1.25 Mg/0.5 Ml Neb.Ernestina*) 1.25 mg INH Q2H PRN PRN Reason: SOB/WHEEZING Last Admin: 10/06/16 04:13 Dose: 1.25 mg Levalbuterol HCl (Xopenex 1.25 Mg/0.5 Ml Neb.Ernestina*) 1.25 mg INH [id number] AWAKE [facility] Last Admin: 10/07/16 06:13 Dose: 1.25 mg Lisinopril (Prinivil Tab*) 10 mg PO DAILY [facility] Last Admin: 10/07/16 09:08 Dose: Not Given Melatonin (Melatonin (Nf)) 3 mg PO BEDTIME PRN; Protocol PRN Reason: Sleep Last Admin: 09/30/16 21:56 Dose: 3 mg Mometasone Furoate/Formoterol Fumar (Dulera 100/5 Mdi*) 2 puff INH BID [facility] Last Admin: 10/07/16 08:51 Dose: 2 puff Montelukast Sodium (Singulair Tab*) 10 mg PO DAILY [facility] Last Admin: 10/07/16 09:23 Dose: 10 mg Multivitamins/Minerals (Preservision Areds(Multivitamins/Mineral)(Nf)) 1 cap PO DAILY [facility] Last Admin: 10/07/16 09:24 Dose: Not Given Nystatin (Nystatin Suspension*) 500,000 units PO QID [facility] Stop: 10/10/16 14:04 Last Admin: 10/07/16 09:23 Dose: 500,000 units Omeprazole (Prilosec Cap*) 20 mg PO DAILY [facility] Last Admin: 10/07/16 09:24 Dose: 20 mg Prednisone (Deltasone Tab*) 40 mg PO DAILY [facility] Last Admin: 10/07/16 09:24 Dose: 40 mg Roflumilast (Daliresp (Nf)) 500 mcg PO DAILY [facility] Last Admin: 10/07/16 09:24 Dose: 500 mcg Simethicone (Mylicon*) 80 mg PO ACHS PRN PRN Reason: bloating Sodium Chloride (Sodium Chloride 0.65% Nasal [place]*) 1 spray BOTH NARES Q1H PRN PRN Reason: NASAL CONGESTION Last Admin: 10/02/16 04:29 Dose: 1 spray Tiotropium [place] (Spiriva Cap.Inh*) 1 cap INH DAILY [facility] Last Admin: 10/07/16 08:51 Dose: 1 cap Vital Signs: Temp Pulse Resp BP Pulse Ox 98.1 F 104 18 122/54 92 10/07/16 07:40 10/07/16 07:40 10/07/16 07:40 10/07/16 07:40 10/07/16 07:40 Oxygen Devices in Use Now: Nasal Cannula Appearance: Chronically ill appearing elderly female in NAD Respiratory: Symmetrical Chest Expansion and Respiratory Effort, - - diffuse reduced breath sounds with occasional rhonchi and wheezing Cardiovascular: RRR Extremities: No Edema Skin: No Rash or Ulcers Neurological: Alert and Oriented x 3 Result Diagrams: 10/06/16 05:00 10/05/16 06:53 Additional Lab and Data: . Microbiology and Other Data: Microbiology 09/28/16 11:25 Nasal Screen MRSA (PCR)(FRANKLYN) - Final Nasal Mrsa Negative Diagnostic Imaging: CXR, on admission: Right paramediastinal soft tissue prominence, follow up imaging was recommended. No infiltrate noted. CT chest, 09/30: IMPRESSION: 1. Relative to the most recent CT of the chest dated August 03, 2013 there has been complete collapse and consolidation of the right upper lobe which corresponds to the density seen on the most recent chest x-ray. 2. Degenerative findings include widespread emphysematous changes. CT chest 10/06 - no change to RUL collapse, new infiltrates noted in CESAR and RLL EKG Data: EKG, on admission: sinus tachycardia at 103 beats per minute, low voltage on the precordial leads, but no acute ischemic changes. No significant change when compared to EKG from July 2013. Assess/Plan/Problems-Billing Assessment: Ms. Rojas is an 81 yo female with a PMH of COPD with chronic O2 use (2L), HTN , and GERD who presented to the ED on 09/28 with concern for respiratory distress that is secondary to COPD exacerbation, SIRS, and acute on chronic hypoxic respiratory failure. - Patient Problems (1) Right upper lobe pneumonia Comment: Collapse and consolidation of right upper lobe, resistant to metnebs, bronchoscopy pending for this afternoon with Dr Oliver Appreciate pulm consult Continue levofloxacin (x10 days), metanebs, chest physiotherapy, flutter valve ( pt refuses device but simulates motion on her own) Urine antigens for S.pneumoniae and legionella negative (2) Acute and chronic respiratory failure with hypoxia Comment: Improving, now down to 3L supp O2 Secondary to COPD exacerbation and pna Patient is chronically on 2Lnc. (3) COPD (chronic obstructive pulmonary disease) Comment: With acute exacerbation and RUL pna Slowly improving, down to 3L supp O2 Continue levofloxacin (x 10 days), steroids, metanebs, nebulizers, chest physiotherapy, supportive care. Cont steroid taper Continue home montelukast, Daliresp, Spiriva. Hold home prednisone (chronically on 5 mg). Patient chronically uses oxygen 2Lnc. (4) SIRS (systemic inflammatory response syndrome) Comment: Secondary to PNA Meets criteria on admission with leukocytosis, tachycardia, and tachypnea. (5) GERD (gastroesophageal reflux disease) Comment: Continue omeprazole. (6) HTN (hypertension) Comment: Normotensive Continue lisinopril. (7) DVT prophylaxis Comment: SQ heparin Status and Disposition: Inpatient admit. Now pending bronchoscopy. Possible dc tomorrow depending on bronch results
[2016-10-07] MEDS: Acetaminophen TAB* 325 MG PO PRN (15:12)
[2016-10-07] MEDS ORDERED: Morphine INJ* 2 MG/ML 1 ML CARPUJECT IV ONE (15:20)
--- NOTE | 2016-10-07 17:37 | PN ---
Progress Note - Progress Note Date of Service: 10/07/16 - Pulmonary f/u Note: Pt seen and examined at bedside this am and again prior to and after bronchoscopy. Pt reproted improvement in SOB however has not returned to baseline. Active Medications Generic Name Dose Route Start Last Admin Trade Name [place] PRN Reason Stop Dose Admin Acetaminophen 650 mg 09/29/16 00:33 10/07/16 15:12 Tylenol Tab* PO 650 mg Q4H PRN Administration PAIN Aspirin 81 mg 09/28/16 11:00 10/07/16 09:29 Aspirin Low Dose Tab* PO 81 mg DAILY ROBERTO Administration Calcium/Vitamin D 2 tab 09/29/16 09:00 10/07/16 09:23 Oscal D Tab 250/125* PO 2 tab DAILY [facility]ERTO Administration Device 1 each 09/30/16 12:00 Tiotropium Inhaler Device* .SEE ORDER .USE w/ SPIRIVA CAPS [facility] Dextrose 12.5 gm 10/04/16 16:05 D50w Syringe 50 Ml* IV PUSH .FOR FS < 60 - SS PRN FS < 60 Heparin Sodium (Porcine) 5,000 units 09/28/16 14:00 10/07/16 15:09 Heparin Vial(*) SUBCUT 5,000 units Q8HR [facility]ERT[facility] Administration Heparin Sodium (Porcine) 0 ml 10/01/16 12:00 10/07/16 06:42 Heparin Flush Picc/Ml/Cvc(*) FLUSH 1 ml 0600,1800 [facility] Administration Insulin Human Lispro 0 units 10/04/16 16:30 10/07/16 11:35 Humalog* SUBCUT Not Given AC [facility] Protocol Levalbuterol HCl 1.25 mg 09/29/16 10:25 10/06/16 04:13 Xopenex 1.25 Mg/0.5 Ml Neb.Ernestina* INH 1.25 mg Q2H PRN Administration SOB/WHEEZING Levalbuterol HCl 1.25 mg 09/29/16 15:00 10/07/16 14:37 Xopenex 1.25 Mg/0.5 Ml Neb.Ernestina* INH 1.25 mg [id number] AWAKE [facility] Administration Lisinopril 10 mg 09/29/16 09:00 10/07/16 09:08 Prinivil Tab* PO Not Given DAILY [facility] Melatonin 3 mg 09/30/16 00:18 09/30/16 21:56 Melatonin (Nf) PO 3 mg BEDTIME PRN Administration Sleep Protocol Mometasone Furoate/Formoterol Fumar 2 puff 09/28/16 11:00 10/07/16 08:51 Dulera 100/5 Mdi* INH 2 puff BID [facility] Administration Montelukast Sodium 10 mg 09/28/16 11:00 10/07/16 09:23 Singulair Tab* PO 10 mg DAILY [facility] Administration Multivitamins/Minerals 1 cap 09/30/16 10:00 10/07/16 09:24 Preservision Areds(Multivitamins/Mineral)(Nf) PO Not Given DAILY [facility] Nystatin 500,000 units 10/03/16 14:15 10/07/16 13:19 Nystatin Suspension* PO 10/10/16 14:04 Not Given QID [facility]ERTO Omeprazole 20 mg 09/29/16 09:00 10/07/16 09:24 Prilosec Cap* PO 20 mg DAILY [facility] Administration Prednisone 40 mg 10/06/16 09:00 10/07/16 09:24 Deltasone Tab* PO 40 mg DAILY [facility] Administration Roflumilast 500 mcg 09/30/16 10:00 10/07/16 09:24 Daliresp (Nf) PO 500 mcg DAILY [facility] Administration Simethicone 80 mg 09/28/16 10:02 Mylicon* PO ACHS PRN bloating Sodium Chloride 1 spray 09/30/16 04:35 10/02/16 04:29 Sodium Chloride 0.65% Nasal [place]* BOTH NARES 1 spray Q1H PRN Administration NASAL CONGESTION Tiotropium [place] 1 cap 09/30/16 12:00 10/07/16 08:51 Spiriva Cap.Inh* INH 1 cap DAILY [facility] Administration Vital Signs Temp Pulse Resp BP Pulse Ox 98.9 F 128 24 106/63 96 10/07/16 15:34 10/07/16 15:34 10/07/16 15:50 10/07/16 15:34 10/07/16 15:34 o/E: Pt in NAD, not using accessory muscles HEENT: PERRLA, no JVD Lungs: dimnished air entry, scaterred wheeze present CVS: S1, S2+, regular Abd: Soft , BS+ Ext: No edema Neuro: No focal defecits, moves all extremities Skin: No rash or bruise Laboratory Results - last 24 hr 10/07/16 10/07/16 07:55 16:55 POC Glucose (mg/dL) 127 H 258 H CXR: Rpt CXR, no signficant improvement in density in RUL corresponding to RUL collpase seen on CTchest CT chest reviewed- No change in RUL collapse, patchy opacities in left lung base I/R: 81 y o f with significant smoking history, O2 dependant COPD a/w worsening SOB, cough found to have RUL collpase 1. PNA 2. RUL collpase likely sec to mucus plugging, pt continues to cough mucus with metanebs 3. Acute on chronic hypoxic resp failure sec to PNA, lung collpase, improving Pt with improved FiO2 requirement MENCHACA has improved slightly CT chest didnot demonstrate signficant chage in density in RUL, s/p bronch today , evidence of endobronchial lesion in RUL, s/p biopsy BAL sent for cx and cytology Will c/w metanebs C/w steroid taper c/w O2 suppl Plan discussed with pt and daughter
--- NOTE | 2016-10-07 23:30 | PRO ---
DATE OF PROCEDURE: 10/07/16 PROCEDURE REPORT PROCEDURE PERFORMED: Bronchoscopy with bronchoalveolar lavage from right upper lobe, endobronchial biopsy from right upper lobe. PROCEDURE PERFORMED BY: Dominique Oliver MD ANESTHESIAS: Local anesthesia with 1% lidocaine 4 cc and conscious sedation. ANESTHESIOLOGIST: Dr. Restrepo. DESCRIPTION OF PROCEDURE: Informed consent was obtained from the patient after all the risks and benefits were thoroughly explained. The patient recently was admitted for shortness of breath, hypoxemia, is being treated for acute COPD exacerbation, was found to have right upper lobe collapse. Bronchoscopy was performed for endobronchial evaluation. Appropriate time-out was agreed on my attending staff. The patient was placed supine on the operating table, head end raised for the patient's comfort. Local anesthesia was achieved through the nares and through the oropharynx with 1% lidocaine. Bronchoscope was then inserted through left nares. No lesions were noted in the nasal cavity. Bronchoscope was then advanced to the vocal cords. Vocal cords were moving normally to inspiration, 1% lidocaine about 3 cc was instilled on the vocal cords. Bronchoscope was then inserted through the endotracheal tube. Evidence of tracheoomalacia was noted. No lesions were noted in the trachea. Left bronchial tree was then inspected. Thick secretions were noted, were suctioned out. No endobronchial lesions were noted on the left side. There was evidence of bronchomalacia on the left side. Bronchoscope was then advanced into the right bronchial tube. The right lower lobe and middle lobe bronchus were patent with no endobronchial lesions. Thick secretions were noted and were suctioned out. There was also evidence of bronchomalacia on the right side. Right upper lobe take-off was narrowed, bronchoscope could not be advanced. There was evidence of endobronchial lesion blocking the anterior segment. There was also evidence of thick mucous. Secretions were suctioned out, bronchial alveolar lavage was obtained on the right upper lobe. Endobronchial biopsies were also obtained from endobronchial lesion noted in the right upper lobe take off. Specimen was placed in formalin and was sent to lab for examination. The patient tolerated the procedure well. [id number] #: [id number] [facility]
[2016-10-08] MEDS: Levalbuterol 1.25MG/0.5ML NEB INH SCH ×7 (00:08→23:23)
[2016-10-08] MEDS: Acetaminophen TAB* 325 MG PO PRN ×3 (01:02→17:58)
[2016-10-08] MEDS: Levalbuterol 1.25MG/0.5ML NEB INH PRN (04:35)
[2016-10-08] MEDS: Heparin VIAL(*) 5000 UNITS/ML VIAL (FIVE THOUSAND) SUBCUT SCH ×3 (05:16→23:36)
[2016-10-08] MEDS: Mometasone/Formoter 100/5 MDI INH SCH ×2 (08:15→19:16)
[2016-10-08] MEDS: Tiotropium CAP.INH* CAP.INH/18 MCG (USE ORDER SET !) INH SCH (08:15)
--- NOTE | 2016-10-08 08:35 | RAD ---
INDICATION: Reassess RIGHT upper lobe atelectasis. COMPARISON: October 06, 2016 CT. TECHNIQUE: Dual energy PA and routine lateral views of the chest were obtained. REPORT: Persistent gross complete atelectasis of the RIGHT upper lobe. Mild consolidation at the LEFT lung base without change. Grossly clear pleural spaces. Negative for pneumothorax. Aside from the increased RIGHT paratracheal density secondary to RIGHT upper lobe atelectasis the mediastinal contours are unremarkable. Negative for cardiomegaly. Unremarkable central pulmonary vasculature. Increased thoracic kyphosis with severe unchanged compression fracture T7. IMPRESSION: Unchanged complete atelectasis of the RIGHT upper lobe and mild LEFT basilar alveolar consolidation.
[2016-10-08] MEDS: Insulin LISPRO* 1 UNITS UNIT SUBCUT SCH ×3 (08:44→16:39)
[2016-10-08] MEDS: predniSONE TAB* 20 MG PO SCH (08:50)
[2016-10-08] MEDS: Lisinopril TAB* 10 MG PO SCH (08:50)
[2016-10-08] MEDS: Nystatin SUSPENSION* 100000 UNITS/ML 5 ML UDC PO SCH ×4 (08:50→23:36)
[2016-10-08] MEDS: Montelukast Sodium TAB* 10 MG PO SCH (08:50)
[2016-10-08] MEDS: Calcium/Vitamin D TAB 250/125* TAB PO SCH (08:50)
[2016-10-08] MEDS: Aspirin Low Dose CHEW TAB* 81 MG PO SCH (08:50)
[2016-10-08] MEDS: Omeprazole CAP* 20 MG PO SCH (08:50)
[2016-10-08] MEDS: ROFLUMILAST 500 MCG PO SCH (08:51)
[2016-10-08] MEDS: MULTIVITAMINS PO SCH (08:52)
[2016-10-08] MEDS: MINERA AREDS PO SCH (08:52)
[2016-10-08] MEDS ORDERED: Polyethylene Glycol 3350* 17 GM PACKET PO ONE (12:10)
--- NOTE | 2016-10-08 12:29 | PN ---
Subjective Date of Service: 10/08/16 Interval History: Patient underwent bronchoscopy yesterday. Thick secretions were suctioned and a sample was taken from an endobronchial lesion noted in the R bronchial tree. Lavage specimen is growing pseudomonas this am. Patient reports improvement in her cough and dyspnea since the procedure. Offers no additional complaints. Objective Active Medications: Acetaminophen (Tylenol Tab*) 650 mg PO Q4H PRN PRN Reason: PAIN Last Admin: 10/08/16 10:13 Dose: 650 mg Aspirin (Aspirin Low Dose Tab*) 81 mg PO DAILY [facility] Last Admin: 10/08/16 08:50 Dose: 81 mg Calcium/Vitamin D (Oscal D Tab 250/125*) 2 tab PO DAILY [facility] Last Admin: 10/08/16 08:50 Dose: 2 tab Device (Tiotropium Inhaler Device*) 1 each .SEE ORDER .USE w/ SPIRIVA CAPS [facility] Dextrose (D50w Syringe 50 Ml*) 12.5 gm IV PUSH .FOR FS < 60 - SS PRN PRN Reason: FS < 60 Docusate Sodium (Colace Cap*) 100 mg PO DAILY PRN PRN Reason: CONSTIPATION Heparin Sodium (Porcine) (Heparin Vial(*)) 5,000 units SUBCUT Q8HR [facility] Last Admin: 10/08/16 05:16 Dose: 5,000 units Heparin Sodium (Porcine) (Heparin Flush Picc/Ml/Cvc(*)) 0 ml FLUSH 0600,1800 [facility] Last Admin: 10/08/16 05:12 Dose: 1 ml Levofloxacin/Dextrose (Levaquin 500 Mg Ivpremix(*)) 500 mg in 100 mls @ 100 mls /hr IVPB Q24H [facility] Insulin Human Lispro (Humalog*) 0 units SUBCUT AC [facility] PRN Reason: Protocol Last Admin: 10/08/16 08:44 Dose: Not Given Levalbuterol HCl (Xopenex 1.25 Mg/0.5 Ml Neb.Ernestina*) 1.25 mg INH Q2H PRN PRN Reason: SOB/WHEEZING Last Admin: 10/08/16 04:35 Dose: 1.25 mg Levalbuterol HCl (Xopenex 1.25 Mg/0.5 Ml Neb.Ernestina*) 1.25 mg INH [id number] AWAKE [facility] Last Admin: 10/08/16 10:42 Dose: 1.25 mg Lisinopril (Prinivil Tab*) 10 mg PO DAILY [facility] Last Admin: 10/08/16 08:50 Dose: 10 mg Melatonin (Melatonin (Nf)) 3 mg PO BEDTIME PRN; Protocol PRN Reason: Sleep Last Admin: 09/30/16 21:56 Dose: 3 mg Mometasone Furoate/Formoterol Fumar (Dulera 100/5 Mdi*) 2 puff INH BID [facility] Last Admin: 10/08/16 08:15 Dose: 2 puff Montelukast Sodium (Singulair Tab*) 10 mg PO DAILY [facility] Last Admin: 10/08/16 08:50 Dose: 10 mg Multivitamins/Minerals (Preservision Areds(Multivitamins/Mineral)(Nf)) 1 cap PO DAILY [facility] Last Admin: 10/08/16 08:52 Dose: Not Given Nystatin (Nystatin Suspension*) 500,000 units PO QID [facility] Stop: 10/10/16 14:04 Last Admin: 10/08/16 08:50 Dose: 500,000 units Omeprazole (Prilosec Cap*) 20 mg PO DAILY [facility] Last Admin: 10/08/16 08:50 Dose: 20 mg Prednisone (Deltasone Tab*) 20 mg PO DAILY [facility] Roflumilast (Daliresp (Nf)) 500 mcg PO DAILY [facility] Last Admin: 10/08/16 08:51 Dose: 500 mcg Simethicone (Mylicon*) 80 mg PO ACHS PRN PRN Reason: bloating Sodium Chloride (Sodium Chloride 0.65% Nasal [place]*) 1 spray BOTH NARES Q1H PRN PRN Reason: NASAL CONGESTION Last Admin: 10/02/16 04:29 Dose: 1 spray Tiotropium [place] (Spiriva Cap.Inh*) 1 cap INH DAILY [facility] Last Admin: 10/08/16 08:15 Dose: 1 cap Vital Signs: Temp Pulse Resp BP Pulse Ox 98.4 F 88 20 124/93 94 10/08/16 07:29 10/08/16 08:20 10/08/16 10:53 10/08/16 07:29 10/08/16 10:53 Oxygen Devices in Use Now: Nasal Cannula Appearance: Elderly female who appearing chronically ill, but is in NAD Respiratory: Symmetrical Chest Expansion and Respiratory Effort, - - coarse rhonchi noted throughout, somewhat improved air exchange noted on auscultation Cardiovascular: NL Sounds; No Murmurs; No JVD, RRR Extremities: No Edema Skin: No Rash or Ulcers Neurological: Alert and Oriented x 3 Result Diagrams: 10/06/16 05:00 10/05/16 06:53 Additional Lab and Data: . Microbiology and Other Data: Microbiology 09/28/16 11:25 Nasal Screen MRSA (PCR)(FRANKLYN) - Final Nasal Mrsa Negative Diagnostic Imaging: CXR, on admission: Right paramediastinal soft tissue prominence, follow up imaging was recommended. No infiltrate noted. CT chest, 09/30: IMPRESSION: 1. Relative to the most recent CT of the chest dated August 03, 2013 there has been complete collapse and consolidation of the right upper lobe which corresponds to the density seen on the most recent chest x-ray. 2. Degenerative findings include widespread emphysematous changes. CT chest 10/06 - no change to RUL collapse, new infiltrates noted in CESAR and RLL CXR 10/08 - persistent collapse of RUL EKG Data: EKG, on admission: sinus tachycardia at 103 beats per minute, low voltage on the precordial leads, but no acute ischemic changes. No significant change when compared to EKG from July 2013. Assess/Plan/Problems-Billing Assessment: Ms. Rojas is an 81 yo female with a PMH of COPD with chronic O2 use (2L), HTN , and GERD who presented to the ED on 09/28 with concern for respiratory distress that is secondary to COPD exacerbation, SIRS, and acute on chronic hypoxic respiratory failure. - Patient Problems (1) Right upper lobe pneumonia Comment: Collapse and consolidation of right upper lobe, resistant to metnebs now s/p bronchoscopy with persistent consolidation noted on CXR this am Plan to continue with metanebs and repeat CXR tomorrow BAL sample growing pseudomonas this am, she completed multiple days of Levaquin , sensitivities are pending, she has allergies to PCNs and cephalosporins limiting choices for antipseudomonal agents Will resume Levaquin at this time while waiting for sensitivities Appreciate pulm consult Urine antigens for S.pneumoniae and legionella negative (2) Acute and chronic respiratory failure with hypoxia Comment: Improving, now down to 3L supp O2 Secondary to COPD exacerbation and pna Patient is chronically on 2Lnc. (3) COPD (chronic obstructive pulmonary disease) Comment: With acute exacerbation and RUL pna Slowly improving, down to 3L supp O2 Continue levofloxacin, steroids, metanebs, nebulizers, chest physiotherapy, supportive care. Cont steroid taper, decreased to 20mg starting tomorrow Continue home montelukast, Daliresp, Spiriva. Hold home prednisone (chronically on 5 mg). Patient chronically uses oxygen 2Lnc. (4) SIRS (systemic inflammatory response syndrome) Comment: Secondary to PNA Meets criteria on admission with leukocytosis, tachycardia, and tachypnea. (5) GERD (gastroesophageal reflux disease) Comment: Continue omeprazole. (6) HTN (hypertension) Comment: Normotensive Continue lisinopril. (7) DVT prophylaxis Comment: SQ heparin Status and Disposition: Inpatient admit. Now pending sensitivities from BAL with continued efforts to expand RUL s/p bronchoscopy
[2016-10-08] MEDS: Docusate CAP* 100 MG PO PRN (12:47)
[2016-10-08] MEDS ORDERED: Levofloxacin 500 MG IVPREMIX(* 500 MG/100 ML BAG IVPB SCH (13:00)
--- NOTE | 2016-10-08 15:24 | PN ---
Progress Note - Progress Note Date of Service: 10/08/16 - Pulmonary f/u Note: Pt seen and examined at bedside. Pt reports breathing better today. She has less cough. Asking about bronch findings and metanebs Active Medications Generic Name Dose Route Start Last Admin Trade Name Freq PRN Reason Stop Dose Admin Acetaminophen 650 mg 09/29/16 00:33 10/08/16 10:13 Tylenol Tab* PO 650 mg Q4H PRN Administration PAIN Aspirin 81 mg 09/28/16 11:00 10/08/16 08:50 Aspirin Low Dose Tab* PO 81 mg DAILY [facility] Administration Calcium/Vitamin D 2 tab 09/29/16 09:00 10/08/16 08:50 Oscal D Tab 250/125* PO 2 tab DAILY [facility] Administration Device 1 each 09/30/16 12:00 Tiotropium Inhaler Device* .SEE ORDER .USE w/ SPIRIVA CAPS [facility] Dextrose 12.5 gm 10/04/16 16:05 D50w Syringe 50 Ml* IV PUSH .FOR FS < 60 - SS PRN FS < 60 Docusate Sodium 100 mg 10/08/16 11:58 Colace Cap* PO DAILY PRN CONSTIPATION Heparin Sodium (Porcine) 5,000 units 09/28/16 14:00 10/08/16 13:27 Heparin Vial(*) SUBCUT 5,000 units Q8HR [facility] Administration Heparin Sodium (Porcine) 0 ml 10/01/16 12:00 10/08/16 05:12 Heparin Flush Picc/Ml/Cvc(*) FLUSH 1 ml 0600,1800 [facility] Administration Levofloxacin/Dextrose 500 mg in 100 mls @ 100 mls/hr 10/08/16 13:00 10/08/16 13:21 Levaquin 500 Mg Ivpremix(*) IVPB 100 mls/hr Q24H [facility] Administration Insulin Human Lispro 0 units 10/04/16 16:30 10/08/16 12:47 Humalog* SUBCUT 2 unit AC [facility] Administration Protocol Levalbuterol HCl 1.25 mg 09/29/16 10:25 10/08/16 04:35 Xopenex 1.25 Mg/0.5 Ml Neb.Ernestina* INH 1.25 mg Q2H PRN Administration SOB/WHEEZING Levalbuterol HCl 1.25 mg 09/29/16 15:00 10/08/16 10:42 Xopenex 1.25 Mg/0.5 Ml Neb.Ernestina* INH 1.25 mg [id number] AWAKE [facility] Administration Lisinopril 10 mg 09/29/16 09:00 10/08/16 08:50 Prinivil Tab* PO 10 mg DAILY [facility] Administration Melatonin 3 mg 09/30/16 00:18 09/30/16 21:56 Melatonin (Nf) PO 3 mg BEDTIME PRN Administration Sleep Protocol Mometasone Furoate/Formoterol Fumar 2 puff 09/28/16 11:00 10/08/16 08:15 Dulera 100/5 Mdi* INH 2 puff BID [facility] Administration Montelukast Sodium 10 mg 09/28/16 11:00 10/08/16 08:50 Singulair Tab* PO 10 mg DAILY [facility] Administration Multivitamins/Minerals 1 cap 09/30/16 10:00 10/08/16 08:52 Preservision Areds(Multivitamins/Mineral)(Nf) PO Not Given DAILY [facility] Nystatin 500,000 units 10/03/16 14:15 10/08/16 12:47 Nystatin Suspension* PO 10/10/16 14:04 500,000 units QID [facility] Administration Omeprazole 20 mg 09/29/16 09:00 10/08/16 08:50 Prilosec Cap* PO 20 mg DAILY [facility] Administration Prednisone 20 mg 10/09/16 09:00 Deltasone Tab* PO DAILY [facility] Roflumilast 500 mcg 09/30/16 10:00 10/08/16 08:51 Daliresp (Nf) PO 500 mcg DAILY [facility] Administration Simethicone 80 mg 09/28/16 10:02 Mylicon* PO ACHS PRN bloating Sodium Chloride 1 spray 09/30/16 04:35 10/02/16 04:29 Sodium Chloride 0.65% Nasal [place]* BOTH NARES 1 spray Q1H PRN Administration NASAL CONGESTION Tiotropium [place] 1 cap 09/30/16 12:00 10/08/16 08:15 Spiriva Cap.Inh* INH 1 cap DAILY [facility] Administration Vital Signs Temp Pulse Resp BP Pulse Ox 98.6 F 109 22 135/43 96 10/08/16 11:18 10/08/16 11:18 10/08/16 11:18 10/08/16 11:18 10/08/16 11:18 o/E: Pt in NAD, not using accessory muscles HEENT: PERRLA, no JVD Lungs: dimnished air entry, scaterred wheeze present CVS: S1, S2+, regular Abd: Soft , BS+ Ext: No edema Neuro: No focal defecits, moves all extremities Skin: No rash or bruise Laboratory Results - last 24 hr 10/07/16 10/08/16 10/08/16 16:55 08:32 11:28 POC Glucose (mg/dL) 258 H 112 H 178 H CXR: Rpt CXR, no signficant improvement in density in RUL corresponding to RUL collpase seen on CTchest CT chest reviewed- No change in RUL collapse, patchy opacities in left lung base I/R: 81 y o f with significant smoking history, O2 dependant COPD a/w worsening SOB, cough found to have RUL collpase 1. PNA 2. RUL collpase likely sec to mucus plugging versus endobronchial lesion, pt continues to cough mucus 3. Acute on chronic hypoxic resp failure sec to PNA, lung collpase, improving Pt with improved FiO2 requirement [place] has improved since bronchoscopy 10/07/16 CT chest didnot demonstrate signficant change in density in RUL, s/p bronch 10/07, evidence of endobronchial lesion in RUL with narrowing, s/p biopsy BAL sent for cx and cytology, results pending Cultures from BAL growing Pseudomonas, currently on Levaquin, will wait for susceptibilities Will c/w metanebs C/w steroid taper c/w O2 suppl Plan discussed with pt and daughter
--- NOTE | 2016-10-08 17:40 | PN ---
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 Results were given to the patient and her daughter, Bernadette. Requested oncology consultation for tomorrow.
[2016-10-09] MEDS: Acetaminophen TAB* 325 MG PO PRN ×2 (01:30→20:48)
[2016-10-09] MEDS: Levalbuterol 1.25MG/0.5ML NEB INH SCH ×6 (03:15→22:45)
[2016-10-09] MEDS: Levalbuterol 1.25MG/0.5ML NEB INH PRN (04:22)
[2016-10-09] MEDS: Heparin VIAL(*) 5000 UNITS/ML VIAL (FIVE THOUSAND) SUBCUT SCH ×3 (05:26→20:49)
[2016-10-09] MEDS: Insulin LISPRO* 1 UNITS UNIT SUBCUT SCH ×3 (07:32→17:53)
[2016-10-09] MEDS: Tiotropium CAP.INH* CAP.INH/18 MCG (USE ORDER SET !) INH SCH (07:43)
[2016-10-09] MEDS: Mometasone/Formoter 100/5 MDI INH SCH ×2 (07:44→19:21)
--- NOTE | 2016-10-09 09:13 | RAD ---
HISTORY: Follow-up right upper lobe atelectasis. COMPARISONS: CT dated October 06, 2016, chest x-ray dated October 08, 2016 VIEWS: 4: Frontal dual-energy and lateral views of the chest. FINDINGS: CARDIOMEDIASTINAL SILHOUETTE: The cardiomediastinal silhouette is stable. LOBO: The lobo are normal. PLEURA: The costophrenic angles are sharp. No pleural abnormalities are noted. LUNG PARENCHYMA: There is hyperinflation with flattening of the diaphragm and expansion of the AP diameter of the chest. Again noted is complete atelectasis of the right upper lobe ABDOMEN: The upper abdomen is clear. There is no subphrenic gas. BONES AND SOFT TISSUES: There is diffuse osteopenia. There is a compression deformity of the midthoracic spine. There is post surgical change of the spine. OTHER: None. IMPRESSION: 1. COPD. 2. PERSISTENT COMPLETE ATELECTASIS OF THE RIGHT UPPER LOBE.
[2016-10-09] MEDS: MINERA AREDS PO SCH (09:32)
[2016-10-09] MEDS: MULTIVITAMINS PO SCH (09:32)
[2016-10-09] MEDS: ROFLUMILAST 500 MCG PO SCH (09:32)
[2016-10-09] MEDS: Nystatin SUSPENSION* 100000 UNITS/ML 5 ML UDC PO SCH ×4 (09:33→20:49)
[2016-10-09] MEDS: Montelukast Sodium TAB* 10 MG PO SCH (09:33)
[2016-10-09] MEDS: predniSONE TAB* 20 MG PO SCH (09:33)
[2016-10-09] MEDS: Lisinopril TAB* 10 MG PO SCH (09:33)
[2016-10-09] MEDS: Calcium/Vitamin D TAB 250/125* TAB PO SCH (09:33)
[2016-10-09] MEDS: Aspirin Low Dose CHEW TAB* 81 MG PO SCH (09:33)
[2016-10-09] MEDS: Omeprazole CAP* 20 MG PO SCH (09:33)
[2016-10-09] MEDS: Docusate CAP* 100 MG PO PRN (09:45)
--- NOTE | 2016-10-09 09:51 | PN ---
Subjective Date of Service: 10/09/16 Interval History: Patient seen and examined at bedside. Denies fever, chills, chest discomfort, N/ V/D. Pt states that she has not moved her bowels since her admission to the hospital. Pt also states that she has increased shortness of breath this morning , because she feels she "over did it" with bathing, breakfast and medications and didn't rest in between. She is very anxious to get discharged to home today, she is interested in Hospice at home. Discussed with her that she should wait and talk to oncology before making any decisions about Hospice. Family History: Unchanged from Admission Social History: Unchanged from Admission Past Medical History: Unchanged from Admission Objective Active Medications: Acetaminophen (Tylenol Tab*) 650 mg PO Q4H PRN Reason: PAIN Aspirin (Aspirin Low Dose Tab*) 81 mg PO DAILY [facility] Calcium/Vitamin D (Oscal D Tab 250/125*) 2 tab PO DAILY [facility] Device (Tiotropium Inhaler Device*) 1 each .SEE ORDER .USE w/ SPIRIVA CAPS [facility] Dextrose (D50w Syringe 50 Ml*) 12.5 gm IV PUSH .FOR FS < 60 - SS PRN Reason: FS < 60 Docusate Sodium (Colace Cap*) 100 mg PO DAILY PRN Reason: CONSTIPATION Heparin Sodium (Porcine) (Heparin Vial(*)) 5,000 units SUBCUT Q8HR [facility] Heparin Sodium (Porcine) (Heparin Flush Picc/Ml/Cvc(*)) 0 ml FLUSH 0600,1800 [facility] Levofloxacin/Dextrose (Levaquin 500 Mg Ivpremix(*)) 500 mg in 100 mls @ 100 mls /hr IVPB Q24H [facility] Insulin Human Lispro (Humalog*) 0 units SUBCUT AC [facility] Levalbuterol HCl (Xopenex 1.25 Mg/0.5 Ml Neb.Ernestina*) 1.25 mg INH Q2H PRN Reason: SOB/WHEEZING Levalbuterol HCl (Xopenex 1.25 Mg/0.5 Ml Neb.Ernestina*) 1.25 mg INH [id number] AWAKE [facility] Lisinopril (Prinivil Tab*) 10 mg PO DAILY [facility] Melatonin (Melatonin (Nf)) 3 mg PO BEDTIME PRN; Protocol Reason: Sleep Mometasone Furoate/Formoterol Fumar (Dulera 100/5 Mdi*) 2 puff INH BID [facility] Montelukast Sodium (Singulair Tab*) 10 mg PO DAILY [facility] Multivitamins/Minerals (Preservision Areds(Multivitamins/Mineral)(Nf)) 1 cap PO DAILY [facility] Nystatin (Nystatin Suspension*) 500,000 units PO QID [facility] Stop: 10/10/16 14:04 Omeprazole (Prilosec Cap*) 20 mg PO DAILY [facility] Prednisone (Deltasone Tab*) 20 mg PO DAILY [facility] Roflumilast (Daliresp (Nf)) 500 mcg PO DAILY [facility] Simethicone (Mylicon*) 80 mg PO ACHS PRN Reason: bloating Sodium Chloride (Sodium Chloride 0.65% Nasal [place]*) 1 spray BOTH NARES Q1H PRN Reason: NASAL CONGESTION Tiotropium [place] (Spiriva Cap.Inh*) 1 cap INH DAILY [facility] Vital Signs 10/08/16 10/08/16 10/08/16 10:53 11:18 15:50 Temperature 98.6 F 98.1 F Pulse Rate 109 101 Respiratory 20 22 23 Rate Blood Pressure 135/43 135/52 (mmHg) O2 Sat by Pulse 94 96 97 Oximetry 10/08/16 10/08/16 10/08/16 16:00 19:18 20:00 Temperature Pulse Rate 78 108 Respiratory 17 16 20 Rate Blood Pressure (mmHg) O2 Sat by Pulse 95 99 Oximetry 10/08/16 10/08/16 10/08/16 20:20 23:12 23:25 Temperature 97.4 F 98.4 F Pulse Rate 112 93 91 Respiratory 22 20 16 Rate Blood Pressure 132/60 135/53 (mmHg) O2 Sat by Pulse 96 96 97 Oximetry 10/09/16 10/09/16 10/09/16 03:38 04:23 07:27 Temperature 97.8 F 98.1 F Pulse Rate 91 92 86 Respiratory 21 16 20 Rate Blood Pressure 145/65 134/59 (mmHg) O2 Sat by Pulse 96 99 97 Oximetry 10/09/16 07:46 Temperature Pulse Rate 94 Respiratory 20 Rate Blood Pressure (mmHg) O2 Sat by Pulse 94 Oximetry Oxygen Devices in Use Now: Nasal Cannula Appearance: Elderly female sitting up in a chair, appears to be short of breath but NAD Ears/Nose/Mouth/Throat: Mucous Membranes Moist Respiratory: Symmetrical Chest Expansion and Respiratory Effort, - - Rhochi and exp wheezing scattered throughout, crackles in the right upper lobe Cardiovascular: NL Sounds; No Murmurs; No JVD, RRR Extremities: No Edema Skin: No Rash or Ulcers Neurological: Alert and Oriented x 3, NL Muscle Strength and Tone Lines/Tubes/Other Access: Clean, Dry and Intact Peripheral IV - site benign Nutrition: Taking PO's Result Diagrams: 10/09/16 12:09 10/05/16 06:53 Microbiology and Other Data: Microbiology 09/28/16 11:25 Nasal Screen MRSA (PCR)(FRANKLYN) - Final Nasal Mrsa Negative Diagnostic Imaging: CXR, on admission: Right paramediastinal soft tissue prominence, follow up imaging was recommended. No infiltrate noted. CT chest, 09/30: IMPRESSION: 1. Relative to the most recent CT of the chest dated August 03, 2013 there has been complete collapse and consolidation of the right upper lobe which corresponds to the density seen on the most recent chest x-ray. 2. Degenerative findings include widespread emphysematous changes. CT chest 10/06 - no change to RUL collapse, new infiltrates noted in CESAR and RLL CXR 10/08 - persistent collapse of RUL CXR 10/09 - persistent complete atelectasis of RUL, COPD EKG Data: EKG, on admission: sinus tachycardia at 103 beats per minute, low voltage on the precordial leads, but no acute ischemic changes. No significant change when compared to EKG from July 2013. Assess/Plan/Problems-Billing Assessment: Ms. Rojas is an 81 yo female with a PMH of COPD with chronic O2 use (2L), HTN , and GERD who presented to the ED on 09/28 with concern for respiratory distress that is secondary to COPD exacerbation, SIRS, and acute on chronic hypoxic respiratory failure. - Patient Problems (1) Right upper lobe pneumonia Code(s): J18.1 - LOBAR PNEUMONIA, UNSPECIFIED ORGANISM SNOMED Code(s): 829554222 Comment: - Collapse and consolidation of right upper lobe, resistant to metnebs now s/p bronchoscopy with persistent consolidation noted on CXR yesterday am and this am - Urine antigens for S.pneumoniae and legionella negative - Appreciate pulmology consult - Plan to continue with metanebs - BAL sample growing pseudomonas this am, she completed multiple days of Levaquin, sensitivities are pending, she has allergies to PCNs and cephalosporins limiting choices for antipseudomonal agents - Levaquin resumed yesterday, while waiting for sensitivities (2) Squamous cell lung cancer Code(s): C34.90 - MALIGNANT NEOPLASM OF UNSP PART OF UNSP BRONCHUS OR LUNG SNOMED Code(s): 407787887 Comment: - Onc consult pending - Pt is interested in Hospice (3) Acute and chronic respiratory failure with hypoxia Code(s): J96.21 - ACUTE AND CHRONIC RESPIRATORY FAILURE WITH HYPOXIA SNOMED Code(s): 318781062 Comment: - Improving, now down to 3L supplemental O2 - Secondary to COPD exacerbation and pna - Patient is chronically on 2L nc. (4) COPD (chronic obstructive pulmonary disease) Code(s): J44.9 - CHRONIC OBSTRUCTIVE PULMONARY DISEASE, UNSPECIFIED SNOMED Code(s): 68022655 Comment: - With acute exacerbation and RUL pna - Slowly improving, down to 3L supplemental O2. On 2L via NC at home - Continue levofloxacin, steroids, metanebs, nebulizers, chest physiotherapy, supportive care. - Continue steroid taper, decreased to 20mg today - Continue home montelukast, Daliresp, Spiriva. (5) SIRS (systemic inflammatory response syndrome) Code(s): R65.10 - SIRS OF NON-INFECTIOUS ORIGIN W/O ACUTE ORGAN DYSFUNCTION SNOMED Code(s): 232428449 Comment: - Secondary to PNA - Meeting criteria on admission with leukocytosis, tachycardia, and tachypnea. - Continues to have leukocytosis and tachycardia. Tachypnea has resolved and is afebrile (6) GERD (gastroesophageal reflux disease) Code(s): K21.9 - GASTRO-ESOPHAGEAL REFLUX DISEASE WITHOUT ESOPHAGITIS SNOMED Code(s): 277755542 Comment: - Continue omeprazole. (7) HTN (hypertension) Code(s): I10 - ESSENTIAL (PRIMARY) HYPERTENSION SNOMED Code(s): 07661001 Comment: - Normotensive - Continue lisinopril (8) DVT prophylaxis Code(s): LQJ8969 - SNOMED Code(s): 271995984 Comment: - SQ heparin (9) Full code status Code(s): Z78.9 - OTHER SPECIFIED HEALTH STATUS SNOMED Code(s): 617340579 Status and Disposition: Inpatient admit. Possible discharge in the Am, Pt may need outpatient IV ABX.
[2016-10-09] MEDS ORDERED: Magnesium Hydroxide LIQ* 30 ML UDC PO PRN (11:05)
[2016-10-09] MEDS ORDERED: Polyethylene Glycol 3350* 17 GM PACKET PO PRN (11:05)
--- NOTE | 2016-10-09 11:05 | CONSULT ---
Consultation - Reason for Consultation Reason for Consultation: newly diagnosed lung cancer Ordering Provider: Milly Rhoades Chief Complaint: newly diagnosed lung cancer History of Present Illness: Very pleasant 81 yo F w PMH of HTN and COPD on home O2 who presents with increasing SOB and was found to have a postobstructive PNA related to a newly diagnosed squamous cell CA of the lung. Pat reports being at her baseline breathing until about 3 weeks ago when she developed progressive SOB. By the time she presented to the ER she was satting at 88%. Imaging revealed complete collapse of the right upper lobe without clear mass as well as moderate to severe chronic appearing compression fractures of the dorsal spine. Repeat chest CT on Thursday revealed new left upper and lower lobe infiltrates. She underwent bronchoscopy with biopsy and lavage confirming squamous cell carcinoma. She has not had imaging of her abdomen. She denies weight loss, headaches, nausea, vomiting, diplopia, abdominal pain, or any worsening of her chronic back pain. She lives in assisted living and has very involved family members who work at this facility. She has apparently been spoken to (? recommended to consider) about hospice already. Notably, she is growing pseudomonas from her bronch which is resistant to the levaquin she is currently on. Allergies/Medications Medication: Acetaminophen (Tylenol Tab*) 650 mg PO Q4H PRN PRN Reason: PAIN Last Admin: 10/09/16 01:30 Dose: 650 mg Aspirin (Aspirin Low Dose Tab*) 81 mg PO DAILY [facility] Last Admin: 10/09/16 09:33 Dose: 81 mg Calcium/Vitamin D (Oscal D Tab 250/125*) 2 tab PO DAILY [facility] Last Admin: 10/09/16 09:33 Dose: 2 tab Device (Tiotropium Inhaler Device*) 1 each .SEE ORDER .USE w/ SPIRIVA CAPS [facility] Dextrose (D50w Syringe 50 Ml*) 12.5 gm IV PUSH .FOR FS < 60 - SS PRN PRN Reason: FS < 60 Docusate Sodium (Colace Cap*) 100 mg PO DAILY PRN PRN Reason: CONSTIPATION Last Admin: 10/09/16 09:45 Dose: 100 mg Heparin Sodium (Porcine) (Heparin Vial(*)) 5,000 units SUBCUT Q8HR [facility] Last Admin: 10/09/16 05:26 Dose: 5,000 units Heparin Sodium (Porcine) (Heparin Flush Picc/Ml/Cvc(*)) 0 ml FLUSH 0600,1800 [facility] Last Admin: 10/09/16 05:26 Dose: 1 ml Levofloxacin/Dextrose (Levaquin 500 Mg Ivpremix(*)) 500 mg in 100 mls @ 100 mls /hr IVPB Q24H [facility] Last Admin: 10/08/16 13:21 Dose: 100 mls/hr Insulin Human Lispro (Humalog*) 0 units SUBCUT AC ROBERTO PRN Reason: Protocol Last Admin: 10/09/16 07:32 Dose: Not Given Levalbuterol HCl (Xopenex 1.25 Mg/0.5 Ml Neb.Ernestina*) 1.25 mg INH Q2H PRN PRN Reason: SOB/WHEEZING Last Admin: 10/09/16 04:22 Dose: 1.25 mg Levalbuterol HCl (Xopenex 1.25 Mg/0.5 Ml Neb.Ernestina*) 1.25 mg INH [id number] AWAKE [facility] Last Admin: 10/09/16 10:54 Dose: 1.25 mg Lisinopril (Prinivil Tab*) 10 mg PO DAILY [facility] Last Admin: 10/09/16 09:33 Dose: 10 mg Magnesium Hydroxide (Milk Of Magnesia Liq*) 30 ml PO Q6H PRN PRN Reason: CONSTIPATION Melatonin (Melatonin (Nf)) 3 mg PO BEDTIME PRN; Protocol PRN Reason: Sleep Last Admin: 09/30/16 21:56 Dose: 3 mg Mometasone Furoate/Formoterol Fumar (Dulera 100/5 Mdi*) 2 puff INH BID [facility] Last Admin: 10/09/16 07:44 Dose: 2 puff Montelukast Sodium (Singulair Tab*) 10 mg PO DAILY [facility] Last Admin: 10/09/16 09:33 Dose: 10 mg Multivitamins/Minerals (Preservision Areds(Multivitamins/Mineral)(Nf)) 1 cap PO DAILY [facility] Last Admin: 10/09/16 09:32 Dose: 1 cap Nystatin (Nystatin Suspension*) 500,000 units PO QID [facility] Stop: 10/10/16 14:04 Last Admin: 10/09/16 09:33 Dose: 500,000 units Omeprazole (Prilosec Cap*) 20 mg PO DAILY [facility] Last Admin: 10/09/16 09:33 Dose: 20 mg Polyethylene Glycol/Electrolytes (Miralax*) 17 gm PO DAILY PRN PRN Reason: CONSTIPATION Prednisone (Deltasone Tab*) 20 mg PO DAILY [facility] Last Admin: 10/09/16 09:33 Dose: 20 mg Roflumilast (Daliresp (Nf)) 500 mcg PO DAILY [facility] Last Admin: 10/09/16 09:32 Dose: 500 mcg Simethicone (Mylicon*) 80 mg PO ACHS PRN PRN Reason: bloating Sodium Chloride (Sodium Chloride 0.65% Nasal [place]*) 1 spray BOTH NARES Q1H PRN PRN Reason: NASAL CONGESTION Last Admin: 10/02/16 04:29 Dose: 1 spray Tiotropium [place] (Spiriva Cap.Inh*) 1 cap INH DAILY [facility] Last Admin: 10/09/16 07:43 Dose: 1 cap Allergies/Adverse Reactions: Allergies Allergy/AdvReac Type Severity Reaction Status Date / Time Amoxicillin Allergy Severe Difficulty Verified 09/28/16 08:34 [From Augmentin XR] Breathing/Wheezing Ceftriaxone [From Rocephin] Allergy Severe Difficulty Verified 09/28/16 08:34 Breathing/Wheezing Clavulanic Acid Allergy Severe Difficulty Verified 09/28/16 08:34 [From Augmentin XR] Breathing/Wheezing Dextromethorphan Allergy Unknown Unknown Verified 09/28/16 08:34 [From Mucinex DM] Reaction Details Guaifenesin [From Mucinex DM] Allergy Unknown Unknown Verified 09/28/16 08:34 Reaction Details Cephalexin Allergy Anaphylatic Verified 09/28/16 08:34 Shock History - Past Medical History Other History: osteoporosis. GERD. HTN. COPD on O2. inguinal hernia repair. KVNG/BSO. lumbar spine surgery - Family History Hx Family Cancer: No - Social History Other Social History: quit smoking, but long standing smoking history. no ETOH Review of Systems - Review of Systems General Comments: full 14 pt ROS performed, all pertinent positives and negatives per HPI Physical Exam - Physical Exam Physical Examination: Vital Signs Temp Pulse Resp BP Pulse Ox 98.1 F 110 18 134/59 96 10/09/16 07:27 10/09/16 11:09 10/09/16 11:09 10/09/16 07:27 10/09/16 11:09 sitting up in chair in NAD able to speak full sentences though appears slightly dyspneic perr eomi op moist diffuse exp wheeze and rhonchi s1 s2 nl soft nt +bs no le edema grossly nonfocal neurological exam no jerrod Results - Lab Results Lab Results: 10/06/16 10/06/16 10/07/16 12:02 16:16 07:55 POC Glucose (mg/dL) 150 H 145 H 127 H 10/07/16 10/08/16 10/08/16 16:55 08:32 11:28 POC Glucose (mg/dL) 258 H 112 H 178 H 10/08/16 10/09/16 16:35 07:25 POC Glucose (mg/dL) 129 H 117 H Assessment and Plan Impression: 81 yo F w COPD on O2 with newly diagnosed SCC of the lung. I discussed this with Salma and her daughters at length. At this point she has not had full staging and as far as we are aware has only localized disease. Given this I have recommended consideration of radiation therapy, which she is in agreement with. I have taken the liberty to consult Dr. Lozano. We discussed that I would recommend full staging with a PET scan prior to consideration of hospice as she has a decent performance status and may very well have only localized disease. They are in agreement with this. I have discussed with the the hospitalist service consideration of changing antibiotics, which they will arrange. I will see her back after her PET scan.
[2016-10-09 12:25] LABS: Hematocrit 35 % (35-47); Hemoglobin 11.3 g/dl (12.0-16.0); Mean Corpuscular HGB Conc 32 g/dl (31-36); Mean Corpuscular Hemoglobin 28 pg (27-31); Mean Corpuscular Volume 87 fL (80-97); Mean Platelet Volume 7 um3 (7.4-10.4); Red Blood Count 4.05 10^6/ul (4.0-5.4); Red Cell Distribution Width 14 % (10.5-15); White Blood Count 25.9 10^3/ul (3.5-10.8)
[2016-10-09 12:26] LABS: Add Diff/Slide Review? Slide Review Added; Comments Flag Yes
[2016-10-09 13:01] LABS: Immature Granulocytes 10 % (0-9); Metamyelocytes % 3 % (0-2); Myelocytes % 5 % (0-1); Neutrophil % 85 % (38-83); RBC Morphology Normal (Normal)
[2016-10-09] MEDS: Meropenem 1 GM PREMIX(*) 1 GM/50 ML BAG IV SCH ×2 (14:30→20:49)
--- NOTE | 2016-10-09 18:30 | PN ---
Progress Note - Progress Note Date of Service: 10/09/16 - Pulm f/u note Note: Pt seen and examined at bedside. Pt reports being not able to sleep last night after hearing bx results. SOB is improved. Active Medications Generic Name Dose Route Start Last Admin Trade Name Freq PRN Reason Stop Dose Admin Acetaminophen 650 mg 09/29/16 00:33 10/09/16 01:30 Tylenol Tab* PO 650 mg Q4H PRN Administration PAIN Aspirin 81 mg 09/28/16 11:00 10/09/16 09:33 Aspirin Low Dose Tab* PO 81 mg DAILY RBOERTO Administration Calcium/Vitamin D 2 tab 09/29/16 09:00 10/09/16 09:33 Oscal D Tab 250/125* PO 2 tab DAILY ROBERTO Administration Device 1 each 09/30/16 12:00 Tiotropium Inhaler Device* .SEE ORDER .USE w/ SPIRIVA CAPS [facility] Dextrose 12.5 gm 10/04/16 16:05 D50w Syringe 50 Ml* IV PUSH .FOR FS < 60 - SS PRN FS < 60 Docusate Sodium 100 mg 10/08/16 11:58 10/09/16 09:45 Colace Cap* PO 100 mg DAILY PRN Administration CONSTIPATION Heparin Sodium (Porcine) 5,000 units 09/28/16 14:00 10/09/16 14:34 Heparin Vial(*) SUBCUT 5,000 units Q8HR ROBERTO Administration Heparin Sodium (Porcine) 0 ml 10/01/16 12:00 10/09/16 17:53 Heparin Flush Picc/Ml/Cvc(*) FLUSH 1 ml 0600,1800 [facility] Administration Meropenem 1 gm in 50 mls @ 100 mls/hr 10/09/16 13:00 10/09/16 14:30 Merrem 1 Gm Premix(*) IV 100 mls/hr Q8H [facility] Administration Insulin Human Lispro 0 units 10/04/16 16:30 10/09/16 17:53 Humalog* SUBCUT 2 unit AC ROBERTO Administration Protocol Levalbuterol HCl 1.25 mg 09/29/16 10:25 10/09/16 04:22 Xopenex 1.25 Mg/0.5 Ml Neb.Ernestina* INH 1.25 mg Q2H PRN Administration SOB/WHEEZING Levalbuterol HCl 1.25 mg 09/29/16 15:00 10/09/16 14:09 Xopenex 1.25 Mg/0.5 Ml Neb.Ernestina* INH 1.25 mg [id number] AWAKE [facility]ERT[facility] Administration Lisinopril 10 mg 09/29/16 09:00 10/09/16 09:33 Prinivil Tab* PO 10 mg DAILY [facility] Administration Magnesium Hydroxide 30 ml 10/09/16 11:05 Milk Of Magnesia Liq* PO Q6H PRN CONSTIPATION Melatonin 3 mg 09/30/16 00:18 09/30/16 21:56 Melatonin (Nf) PO 3 mg BEDTIME PRN Administration Sleep Protocol Mometasone Furoate/Formoterol Fumar 2 puff 09/28/16 11:00 10/09/16 07:44 Dulera 100/5 Mdi* INH 2 puff BID [facility]ERTO Administration Montelukast Sodium 10 mg 09/28/16 11:00 10/09/16 09:33 Singulair Tab* PO 10 mg DAILY [facility] Administration Multivitamins/Minerals 1 cap 09/30/16 10:00 10/09/16 09:32 Preservision Areds(Multivitamins/Mineral)(Nf) PO 1 cap DAILY [facility] Administration Nystatin 500,000 units 10/03/16 14:15 10/09/16 17:53 Nystatin Suspension* PO 10/10/16 14:04 500,000 units QID [facility] Administration Omeprazole 20 mg 09/29/16 09:00 10/09/16 09:33 Prilosec Cap* PO 20 mg DAILY [facility] Administration Polyethylene Glycol/Electrolytes 17 gm 10/09/16 11:05 Miralax* PO DAILY PRN CONSTIPATION Prednisone 20 mg 10/09/16 09:00 10/09/16 09:33 Deltasone Tab* PO 20 mg DAILY [facility] Administration Roflumilast 500 mcg 09/30/16 10:00 10/09/16 09:32 Daliresp (Nf) PO 500 mcg DAILY [facility] Administration Simethicone 80 mg 09/28/16 10:02 Mylicon* PO ACHS PRN bloating Sodium Chloride 1 spray 09/30/16 04:35 10/02/16 04:29 Sodium Chloride 0.65% Nasal [place]* BOTH NARES 1 spray Q1H PRN Administration NASAL CONGESTION Tiotropium [place] 1 cap 09/30/16 12:00 10/09/16 07:43 Spiriva Cap.Inh* INH 1 cap DAILY [facility] Administration Vital Signs Temp Pulse Resp BP Pulse Ox 98.4 F 110 28 173/42 97 10/09/16 16:10 10/09/16 16:10 10/09/16 16:10 10/09/16 16:10 10/09/16 16:10 o/E: Pt in NAD, not using accessory muscles HEENT: PERRLA, no JVD Lungs: dimnished air entry, scaterred wheeze present CVS: S1, S2+, regular Abd: Soft , BS+ Ext: No edema Neuro: No focal defecits, moves all extremities Skin: No rash or bruise Laboratory Results - last 24 hr 10/09/16 10/09/16 10/09/16 07:25 11:31 12:09 WBC 25.9 H RBC 4.05 Hgb 11.3 L Hct 35 MCV 87 MCH 28 MCHC 32 RDW 14 Plt Count 408 MPV 7 L Immature Gran % (Auto) 10 H Neut % (Auto) 91.8 H Lymph % (Auto) 3.8 L [place] % (Auto) 3.7 Eos % (Auto) 0.6 Baso % (Auto) 0.1 Absolute Neuts (auto) 23.7 H Absolute Lymphs (auto) 1.0 Absolute Monos (auto) 1.0 H Absolute Eos (auto) 0.2 Absolute Basos (auto) 0 Absolute Nucleated RBC 0 Neutrophils % 85 H Band Neutrophils % 2 Lymphocytes % 1 L Monocytes % 4 Metamyelocytes % 3 H Myelocytes % 5 H Nucleated RBC % 0 Normal RBC Morphology Normal POC Glucose (mg/dL) 117 H 152 H 10/09/16 17:02 WBC RBC Hgb Hct MCV MCH MCHC RDW Plt Count MPV Immature Gran % (Auto) Neut % (Auto) Lymph % (Auto) [place] % (Auto) Eos % (Auto) Baso % (Auto) Absolute Neuts (auto) Absolute Lymphs (auto) Absolute Monos (auto) Absolute Eos (auto) Absolute Basos (auto) Absolute Nucleated RBC Neutrophils % Band Neutrophils % Lymphocytes % Monocytes % Metamyelocytes % Myelocytes % Nucleated RBC % Normal RBC Morphology POC Glucose (mg/dL) 163 H CXR: Rpt CXR, no signficant improvement in density in RUL corresponding to RUL collpase seen on CTchest CT chest reviewed- No change in RUL collapse, patchy opacities in left lung base Lung biopsy: Positive for squamous cell I/R: 81 y o f with significant smoking history, O2 dependant COPD a/w worsening SOB, cough found to have RUL collpase 1. PNA, likely post obstructive, cx positive for Pseudomonas 2. RUL collpase sec to endobronchial lesion, found to be squamous cell carcinoma 3. Acute on chronic hypoxic resp failure sec to PNA, lung collpase, improving Pt with improved FiO2 requirement [place] has improved since bronchoscopy 10/07/16 CT chest didnot demonstrate signficant change in density in RUL, s/p bronch 10/07, evidence of endobronchial lesion in RUL with narrowing, s/p biopsy, positive for squamous cell carcinoma Was seen by Oncology, radiation being considered Cultures from BAL growing Pseudomonas, multi drug resistant, might need IV abx Levaquin changed to Meropenem Will c/w metanebs C/w steroid taper c/w O2 suppl Plan discussed with Milly ROBBINS, pt
[2016-10-10] MEDS: Levalbuterol 1.25MG/0.5ML NEB INH PRN ×2 (00:45→05:02)
[2016-10-10] MEDS: Levalbuterol 1.25MG/0.5ML NEB INH SCH ×6 (02:55→23:09)
[2016-10-10] MEDS: Meropenem 1 GM PREMIX(*) 1 GM/50 ML BAG IV SCH ×3 (05:30→22:24)
--- NOTE | 2016-10-10 05:35 | RADMED ---
CC: Dr. Kylie Dotson * RADIATION ONCOLOGY INPATIENT CONSULTATION NOTE: DATE OF SERVICE: 10/09/16 REFERRING PHYSICIAN: Dr. Kylie Dotson. DIAGNOSIS: Long, right upper lobe, squamous cell carcinoma, staging evaluation pending. HISTORY OF PRESENT ILLNESS: Edith Rojas is an 81-year-old woman with COPD who noted progressive shortness of breath which prompted hospital admission on 09/28/16. Evaluation included CT scan of the chest, 09/30/16, which showed atelectasis of the right upper lobe as well as some patchy infiltrate in the left upper lobe with somewhat nodular characteristics. She underwent bronchoscopy on 10/07/16 with obstruction of the right upper lobe bronchus with endobronchial lesion with washings and biopsy confirming squamous cell carcinoma. With antibiotics and supportive care, she is feeling quite a bit better, and is referred for consideration of radiation therapy and the management of newly diagnosed lung cancer. PAST MEDICAL HISTORY: Lung cancer, as in the history of present illness. History of osteoporosis, reflux, hypertension, and COPD. MEDICATIONS: 1. Aspirin. 2. Calcium and D. 3. Tiotropium inhaler. 4. Colace. 5. Heparin. 6. Xopenex. 8. Lisinopril. 9. Mild of magnesia. 10. Melatonin. 11. Meropenem. 12. Dulera. 13. Singulair. 14. Multivitamin. 15. Nystatin. 16. Prilosec. 17. MiraLAX. 18. Prednisone. 19. Roflumilast. 20. Simethicone. 21. Spiriva. ALLERGIES: AMOXICILLIN, CEFTRIAXONE, CLAVULANIC ACID, DEXTROMETHORPHAN, GUAIFENESIN, and CEPHALEXIN. FAMILY HISTORY: No history of malignancy reported in her first degree relatives. SOCIAL HISTORY: She is a former smoker, quit in the distant past. REVIEW OF SYSTEMS: As in the history of present illness, otherwise a complete review of systems is obtained from the patient, negative for additional significant findings. PHYSICAL EXAMINATION: Vital Signs: Temperature 98.6, pulse rate 107, respiratory rate 22, oxygen saturation 95% on oxygen via nasal cannula, blood pressure 124/51. General: She is awake, alert, and oriented in no acute distress. Normocephalic and atraumatic. Sclerae are anicteric. Neck is supple , full range of motion. Midline trachea, no masses palpable in the neck or thyroid. Lungs with distant breath sounds, relatively symmetric air entry bilaterally. Cardiovascular: S1 and S2 regular. Abdomen: Soft and nontender. No masses, no organomegaly. Extremities: No cyanosis or edema. PATHOLOGY AND RADIOLOGY: Reviewed, as in the history of present illness. ASSESSMENT AND PLAN: Edith Rojas is an 81-year-old woman with newly diagnosed squamous cell carcinoma of the right lung with atelectasis as well as postobstructive pneumonia. I did review her history as well as the pathologic and radiographic findings, and discussed at some length with the patient and her family. I explained the use of radiation therapy both from a palliative point of view as well as definitive thoracic radiation therapy. With regard to radiation treatments, I described the logistics and rationale, risks, benefits, and alternatives as well as acute and long-term frequent and uncommon toxicities. I also discussed palliative care and hospice, management without cancer directed therapy as an option. If she were interested to consider radiation therapy, I do think staging with the PET scan, as has been suggested by Dr. Dotson, would be beneficial. Her breathing seems relatively stable at this juncture, and if she can be discharged an outpatient PET would help to inform treatment options. Palliative radiation therapy could be considered at this stage, but if the PET scan indicated localized disease, she could be a candidate for more definitive hypofractionated treatment (short course high dose ). I did explain the potential for false positive, particularly in the setting of active infection, with some nodular infiltrate in the left lung of unknown significance. She is inclined to undergo PET scan, and I will find out when that is being arranged and follow up with her on an outpatient basis, assuming she is able to be discharged. Thank you for giving me the opportunity to participate in the care of this very pleasant patient. [id number]/[facility] #: [id number] JASPER
[2016-10-10] MEDS: Heparin VIAL(*) 5000 UNITS/ML VIAL (FIVE THOUSAND) SUBCUT SCH ×3 (06:27→22:24)
[2016-10-10 06:48] LABS: Hematocrit 34 % (35-47); Hemoglobin 10.9 g/dl (12.0-16.0)
[2016-10-10 06:50] LABS: Mean Corpuscular HGB Conc 32 g/dl (31-36); Mean Corpuscular Hemoglobin 28 pg (27-31); Mean Corpuscular Volume 87 fL (80-97); Mean Platelet Volume 8 um3 (7.4-10.4); Red Blood Count 3.87 10^6/ul (4.0-5.4); Red Cell Distribution Width 14 % (10.5-15)
[2016-10-10 06:51] LABS: Add Diff/Slide Review? Slide Review Added; Comments Flag Yes
[2016-10-10] MEDS: Mometasone/Formoter 100/5 MDI INH SCH ×2 (07:28→19:54)
[2016-10-10] MEDS: Tiotropium CAP.INH* CAP.INH/18 MCG (USE ORDER SET !) INH SCH (07:29)
[2016-10-10] MEDS: Insulin LISPRO* 1 UNITS UNIT SUBCUT SCH ×3 (07:47→18:27)
[2016-10-10] MEDS: MULTIVITAMINS PO SCH (09:03)
[2016-10-10] MEDS: MINERA AREDS PO SCH (09:03)
[2016-10-10] MEDS: ROFLUMILAST 500 MCG PO SCH (09:03)
[2016-10-10] MEDS: Nystatin SUSPENSION* 100000 UNITS/ML 5 ML UDC PO SCH ×2 (09:04→13:08)
[2016-10-10] MEDS: Montelukast Sodium TAB* 10 MG PO SCH (09:04)
[2016-10-10] MEDS: Lisinopril TAB* 10 MG PO SCH (09:04)
[2016-10-10] MEDS: Omeprazole CAP* 20 MG PO SCH (09:04)
[2016-10-10] MEDS: Aspirin Low Dose CHEW TAB* 81 MG PO SCH (09:04)
[2016-10-10] MEDS: predniSONE TAB* 20 MG PO SCH (09:04)
[2016-10-10] MEDS: Calcium/Vitamin D TAB 250/125* TAB PO SCH (09:04)
[2016-10-10] MEDS: Docusate CAP* 100 MG PO PRN (09:12)
--- NOTE | 2016-10-10 11:33 | PN ---
Subjective Date of Service: 10/10/16 Interval History: Patient seen and examined at bedside. Pt states that her breathing is improved since her admission, but not back to her baseline. She reports dyspnea with exertion (washing dishes at home). She reports dyspnea when going to the bathroom here. Denies fever, chills, chest discomfort, N/V/D. Pt states that she is feeling much better since starting the new antibiotic. Had a long conversation with Pt and her daughters (Donya and Bernadette) regarding possible outpatient IV ABX, they are unable to assist with IV ABX outpatient and agree that Ms. Rojas should stay in the hospital to complete her course of ABX. Also discussed waiting for a PET scan outpatient or getting a CT ABD/ pelvis while here to eval for mets. Pt would like to get CT while here. Family History: Unchanged from Admission Social History: Unchanged from Admission Past Medical History: Unchanged from Admission Objective Active Medications: Acetaminophen (Tylenol Tab*) 650 mg PO Q4H PRN Reason: PAIN Aspirin (Aspirin Low Dose Tab*) 81 mg PO DAILY ROBERTO Calcium/Vitamin D (Oscal D Tab 250/125*) 2 tab PO DAILY ROBERTO Device (Tiotropium Inhaler Device*) 1 each .SEE ORDER .USE w/ SPIRIVA CAPS ROBERTO Dextrose (D50w Syringe 50 Ml*) 12.5 gm IV PUSH .FOR FS < 60 - SS PRN Reason: FS < 60 Docusate Sodium (Colace Cap*) 100 mg PO DAILY PRN Reason: CONSTIPATION Heparin Sodium (Porcine) (Heparin Vial(*)) 5,000 units SUBCUT Q8HR ROBERTO Heparin Sodium (Porcine) (Heparin Flush Picc/Ml/Cvc(*)) 0 ml FLUSH 0600,1800 ROBERTO Meropenem (Merrem 1 Gm Premix(*)) 1 gm in 50 mls @ 100 mls/hr IV Q8H ROBERTO Stop: 10/14/16 12:59 Insulin Human Lispro (Humalog*) 0 units SUBCUT AC ROBERTO Levalbuterol HCl (Xopenex 1.25 Mg/0.5 Ml Neb.Ernestina*) 1.25 mg INH Q2H PRN Reason: SOB/WHEEZING Levalbuterol HCl (Xopenex 1.25 Mg/0.5 Ml Neb.Ernestina*) 1.25 mg INH [id number] AWAKE ROBERTO Lisinopril (Prinivil Tab*) 10 mg PO DAILY [facility] Magnesium Hydroxide (Milk Of Magnesia Liq*) 30 ml PO Q6H PRN Reason: CONSTIPATION Melatonin (Melatonin (Nf)) 3 mg PO BEDTIME PRN; Protocol Reason: Sleep Mometasone Furoate/Formoterol Fumar (Dulera 100/5 Mdi*) 2 puff INH BID [facility] Montelukast Sodium (Singulair Tab*) 10 mg PO DAILY [facility] Multivitamins/Minerals (Preservision Areds(Multivitamins/Mineral)(Nf)) 1 cap PO DAILY [facility] Nystatin (Nystatin Suspension*) 500,000 units PO QID ROBERTO Stop: 10/10/16 14:04 Omeprazole (Prilosec Cap*) 20 mg PO DAILY [facility] Polyethylene Glycol/Electrolytes (Miralax*) 17 gm PO DAILY PRN Prednisone (Deltasone Tab*) 20 mg PO DAILY [facility] Roflumilast (Daliresp (Nf)) 500 mcg PO DAILY ROBERTO Simethicone (Mylicon*) 80 mg PO ACHS PRN Reason: bloating Sodium Chloride (Sodium Chloride 0.65% Nasal [place]*) 1 spray BOTH NARES Q1H PRN Reason: NASAL CONGESTION Tiotropium [place] (Spiriva Cap.Inh*) 1 cap INH DAILY [facility] Vital Signs 10/09/16 10/09/16 10/09/16 14:12 16:10 19:22 Temperature 98.4 F Pulse Rate 105 110 102 Respiratory 16 28 16 Rate Blood Pressure 173/42 (mmHg) O2 Sat by Pulse 98 97 98 Oximetry 10/09/16 10/09/16 10/09/16 19:45 20:00 23:12 Temperature 98.0 F 98.1 F Pulse Rate 100 97 Respiratory 22 22 24 Rate Blood Pressure 129/50 127/47 (mmHg) O2 Sat by Pulse 96 98 Oximetry 10/10/16 10/10/16 10/10/16 00:48 02:45 05:06 Temperature 97.5 F Pulse Rate 99 79 83 Respiratory 16 22 18 Rate Blood Pressure 131/46 (mmHg) O2 Sat by Pulse 98 98 96 Oximetry 10/10/16 10/10/16 07:20 07:54 Temperature Pulse Rate 91 94 Respiratory 24 Rate Blood Pressure 136/52 (mmHg) O2 Sat by Pulse 98 99 Oximetry Oxygen Devices in Use Now: Nasal Cannula - 3 L Appearance: NAD, sitting up in a chair Ears/Nose/Mouth/Throat: Mucous Membranes Moist Respiratory: Symmetrical Chest Expansion and Respiratory Effort, - - Lung sounds with rhonchi and exp wheezing Cardiovascular: NL Sounds; No Murmurs; No JVD, RRR Abdominal: NL Sounds; No Tenderness; No Distention Extremities: No Edema Skin: No Rash or Ulcers Neurological: Alert and Oriented x 3, NL Muscle Strength and Tone Lines/Tubes/Other Access: Clean, Dry and Intact Peripheral IV - midline, site benign Nutrition: Taking PO's Result Diagrams: 10/10/16 06:09 10/05/16 06:53 Microbiology and Other Data: Microbiology 09/28/16 11:25 Nasal Screen MRSA (PCR)(FRANKLYN) - Final Nasal Mrsa Negative Microbiology 10/07/16 12:55 Body Fluid - Right Upper Lobe Gram Stain - Final 10/07/16 12:55 Body Fluid - Right Upper Lobe Acid Fast Bacilli Smear - Final 10/07/16 12:55 Body Fluid - Right Upper Lobe Body Fluid Culture - Preliminary Pseudomonas Aeruginosa Normal [facility]: CXR, on admission: Right paramediastinal soft tissue prominence, follow up imaging was recommended. No infiltrate noted. CT chest, 09/30: IMPRESSION: 1. Relative to the most recent CT of the chest dated August 03, 2013 there has been complete collapse and consolidation of the right upper lobe which corresponds to the density seen on the most recent chest x-ray. 2. Degenerative findings include widespread emphysematous changes. CT chest 10/06 - no change to RUL collapse, new infiltrates noted in CESAR and RLL CXR 10/08 - persistent collapse of RUL CXR 10/09 - persistent complete atelectasis of RUL, COPD EKG Data: EKG, on admission: sinus tachycardia at 103 beats per minute, low voltage on the precordial leads, but no acute ischemic changes. No significant change when compared to EKG from July 2013. Assess/Plan/Problems-Billing Assessment: Ms. Rojas is an 81 yo female with a PMH of COPD with chronic O2 use (2L), HTN , and GERD who presented to the ED on 09/28 with concern for respiratory distress that is secondary to COPD exacerbation, SIRS, and acute on chronic hypoxic respiratory failure. - Patient Problems (1) Right upper lobe pneumonia Code(s): J18.1 - LOBAR PNEUMONIA, UNSPECIFIED ORGANISM SNOMED Code(s): 578929977 Comment: - Collapse and consolidation of right upper lobe, resistant to metnebs now s/p bronchoscopy with persistent consolidation noted on CXR yesterday am and this am - Urine antigens for S.pneumoniae and legionella negative - Appreciate pulmology consult - Plan to continue with metanebs - BAL sample growing pseudomonas, she completed multiple days of Levaquin, sensitivities show pseudomonas is resistant to levaquin, she has allergies to PCNs and cephalosporins limiting choices for antipseudomonal agents - Levaquin had been resumed, but pseudomonas is resistant to levaquin. - Started on meropenem yesterday, will continue for a total of 5 days (day 15) (2) Squamous cell lung cancer Code(s): C34.90 - MALIGNANT NEOPLASM OF UNSP PART OF UNSP BRONCHUS OR LUNG SNOMED Code(s): 550411137 Comment: - Onc consult, inout appreciated - Pt is interested in possible Hospice if she has mets - Plan for possible radiation treatments after staging completed - Will check CT ABD/pelvis today to eval for mets (if no mets seen on CT, will plan for outpatient PET scan) (3) Acute and chronic respiratory failure with hypoxia Code(s): J96.21 - ACUTE AND CHRONIC RESPIRATORY FAILURE WITH HYPOXIA SNOMED Code(s): 847040174 Comment: - Improving, now down to 3L supplemental O2 - Secondary to COPD exacerbation and pna - Patient is chronically on 2L nc. (4) COPD (chronic obstructive pulmonary disease) Code(s): J44.9 - CHRONIC OBSTRUCTIVE PULMONARY DISEASE, UNSPECIFIED SNOMED Code(s): 89784562 Comment: - With acute exacerbation and RUL pna - Slowly improving, down to 3L supplemental O2. On 2L via NC at home - Continue meropenem, steroids, metanebs, nebulizers, chest physiotherapy, supportive care. - Continue steroid taper, decreased to 20mg today - Continue home montelukast, Daliresp, Spiriva. (5) SIRS (systemic inflammatory response syndrome) Code(s): R65.10 - SIRS OF NON-INFECTIOUS ORIGIN W/O ACUTE ORGAN DYSFUNCTION SNOMED Code(s): 305191638 Comment: - Secondary to PNA - Meeting criteria on admission with leukocytosis, tachycardia, and tachypnea. - Continues to have leukocytosis and tachycardia. Tachypnea has resolved and afebrile (6) GERD (gastroesophageal reflux disease) Code(s): K21.9 - GASTRO-ESOPHAGEAL REFLUX DISEASE WITHOUT ESOPHAGITIS SNOMED Code(s): 493799014 Comment: - Continue omeprazole. (7) HTN (hypertension) Code(s): I10 - ESSENTIAL (PRIMARY) HYPERTENSION SNOMED Code(s): 91082539 Comment: - Normotensive - Continue lisinopril (8) DVT prophylaxis Code(s): LFM6351 - SNOMED Code(s): 089623210 Comment: - SQ heparin (9) Full code status Code(s): Z78.9 - OTHER SPECIFIED HEALTH STATUS SNOMED Code(s): 428198941 Status and Disposition: Inpatient admit. Plan for discharge on Saturday 10/14 after completion of 5 days IV meropenem.
[2016-10-10] MEDS ORDERED: Iohexol 300* (CONTRAST) 10 ML SDV IV ONE (12:18)
--- NOTE | 2016-10-10 15:16 | PN ---
Progress Note - Progress Note Date of Service: 10/10/16 - Pulm f/u Note: Pt seen and examined at bedside. Pt was upset that she was sent back from CT due to poor IV access. She had oral contrast for CT abd/pelvis. She is NPO. Breathing is improved, family at bedside. Active Medications Generic Name Dose Route Start Last Admin Trade Name Freq PRN Reason Stop Dose Admin Acetaminophen 650 mg 09/29/16 00:33 10/09/16 20:48 Tylenol Tab* PO 650 mg Q4H PRN Administration PAIN Aspirin 81 mg 09/28/16 11:00 10/10/16 09:04 Aspirin Low Dose Tab* PO 81 mg DAILY ROBERTO Administration Calcium/Vitamin D 2 tab 09/29/16 09:00 10/10/16 09:04 Oscal D Tab 250/125* PO 2 tab DAILY ROBERTO Administration Device 1 each 09/30/16 12:00 Tiotropium Inhaler Device* .SEE ORDER .USE w/ SPIRIVA CAPS ROBERTO Dextrose 12.5 gm 10/04/16 16:05 D50w Syringe 50 Ml* IV PUSH .FOR FS < 60 - SS PRN FS < 60 Docusate Sodium 100 mg 10/08/16 11:58 10/10/16 09:12 Colace Cap* PO 100 mg DAILY PRN Administration CONSTIPATION Heparin Sodium (Porcine) 5,000 units 09/28/16 14:00 10/10/16 13:09 Heparin Vial(*) SUBCUT 5,000 units Q8HR ROBERTO Administration Heparin Sodium (Porcine) 0 ml 10/01/16 12:00 10/10/16 06:27 Heparin Flush Picc/Ml/Cvc(*) FLUSH 1 ml 0600,1800 ROBERTO Administration Meropenem 1 gm in 50 mls @ 100 mls/hr 10/10/16 13:30 10/10/16 13:10 Merrem 1 Gm Premix(*) IV 10/14/16 13:29 100 mls/hr Q8H ROBERTO Administration Insulin Human Lispro 0 units 10/04/16 16:30 10/10/16 11:55 Humalog* SUBCUT Not Given AC [facility] Protocol Levalbuterol HCl 1.25 mg 09/29/16 10:25 10/10/16 05:02 Xopenex 1.25 Mg/0.5 Ml Neb.Ernestina* INH 1.25 mg Q2H PRN Administration SOB/WHEEZING Levalbuterol HCl 1.25 mg 09/29/16 15:00 10/10/16 15:06 Xopenex 1.25 Mg/0.5 Ml Neb.Ernestina* INH 1.25 mg [id number] AWAKE ROBERTO Administration Lisinopril 10 mg 09/29/16 09:00 10/10/16 09:04 Prinivil Tab* PO 10 mg DAILY ROBERTO Administration Magnesium Hydroxide 30 ml 10/09/16 11:05 10/09/16 20:47 Milk Of Magnesia Liq* PO 30 ml Q6H PRN Administration CONSTIPATION Melatonin 3 mg 09/30/16 00:18 09/30/16 21:56 Melatonin (Nf) PO 3 mg BEDTIME PRN Administration Sleep Protocol Mometasone Furoate/Formoterol Fumar 2 puff 09/28/16 11:00 10/10/16 07:28 Dulera 100/5 Mdi* INH 2 puff BID ROBERTO Administration Montelukast Sodium 10 mg 09/28/16 11:00 10/10/16 09:04 Singulair Tab* PO 10 mg DAILY ROBERTO Administration Multivitamins/Minerals 1 cap 09/30/16 10:00 10/10/16 09:03 Preservision Areds(Multivitamins/Mineral)(Nf) PO 1 cap DAILY ROBERTO Administration Omeprazole 20 mg 09/29/16 09:00 10/10/16 09:04 Prilosec Cap* PO 20 mg DAILY ROBERTO Administration Polyethylene Glycol/Electrolytes 17 gm 10/09/16 11:05 Miralax* PO DAILY PRN CONSTIPATION Prednisone 20 mg 10/09/16 09:00 10/10/16 09:04 Deltasone Tab* PO 20 mg DAILY ROBERTO Administration Roflumilast 500 mcg 09/30/16 10:00 10/10/16 09:03 Daliresp (Nf) PO 500 mcg DAILY ROBERTO Administration Simethicone 80 mg 09/28/16 10:02 Mylicon* PO ACHS PRN bloating Sodium Chloride 1 spray 09/30/16 04:35 10/02/16 04:29 Sodium Chloride 0.65% Nasal [place]* BOTH NARES 1 spray Q1H PRN Administration NASAL CONGESTION Tiotropium [place] 1 cap 09/30/16 12:00 10/10/16 07:29 Spiriva Cap.Inh* INH 1 cap DAILY ROBERTO Administration Vital Signs Temp Pulse Resp BP Pulse Ox 98.1 F 96 24 143/56 96 10/10/16 11:44 10/10/16 11:44 10/10/16 11:44 10/10/16 11:44 10/10/16 11:44 o/E: Pt in NAD, not using accessory muscles, sitting up in chair HEENT: PERRLA, no JVD Lungs: dimnished air entry, scaterred wheeze present, much improved CVS: S1, S2+, regular Abd: Soft , BS+ Ext: No edema Neuro: No focal defecits, moves all extremities Skin: No rash or bruise Laboratory Results - last 24 hr 10/09/16 10/10/16 10/10/16 17:02 06:09 06:09 WBC 16.0 H RBC 3.87 L Hgb 10.9 L Hct 34 L MCV 87 MCH 28 MCHC 32 RDW 14 Plt Count 339 MPV 8 Neut % (Auto) 81.0 Lymph % (Auto) 12.2 L [place] % (Auto) 6.1 Eos % (Auto) 0.4 Baso % (Auto) 0.3 Absolute Neuts (auto) 13.0 H Absolute Lymphs (auto) 1.9 Absolute Monos (auto) 1.0 H Absolute Eos (auto) 0.1 Absolute Basos (auto) 0 Absolute Nucleated RBC 0 Nucleated RBC % 0 POC Glucose (mg/dL) 163 H C-Reactive Protein 82.30 H 10/10/16 10/10/16 07:44 11:45 WBC RBC Hgb Hct MCV MCH MCHC RDW Plt Count MPV Neut % (Auto) Lymph % (Auto) [place] % (Auto) Eos % (Auto) Baso % (Auto) Absolute Neuts (auto) Absolute Lymphs (auto) Absolute Monos (auto) Absolute Eos (auto) Absolute Basos (auto) Absolute Nucleated RBC Nucleated RBC % POC Glucose (mg/dL) 121 H 137 H C-Reactive Protein CXR: Rpt CXR, no signficant improvement in density in RUL corresponding to RUL collpase seen on CTchest CT chest reviewed- No change in RUL collapse, patchy opacities in left lung base Lung biopsy: Positive for squamous cell I/R: 81 y o f with significant smoking history, O2 dependant COPD a/w worsening SOB, cough found to have RUL collpase 1. PNA, likely post obstructive, cx positive for Pseudomonas 2. RUL collpase sec to endobronchial lesion, found to be squamous cell carcinoma 3. Acute on chronic hypoxic resp failure sec to PNA, lung collpase, improving Pt with improved FiO2 requirement, requiring 3L O2 [place] has improved since bronchoscopy 10/07/16 CT chest didnot demonstrate signficant change in density in RUL, s/p bronch 10/07, evidence of endobronchial lesion in RUL with narrowing, s/p biopsy, positive for squamous cell carcinoma Was seen by Oncology, radiation being considered Pt to have abd CT for staging Cultures from BAL growing Pseudomonas, multi drug resistant, might need IV abx On Meropenem Will c/w metanebs C/w steroid taper c/w O2 suppl Plan discussed with pt and family
--- NOTE | 2016-10-10 15:51 | RAD ---
INDICATION: RIGHT upper lobe atelectasis of uncertain etiology. Assess for abdominal pelvic metastasis. COMPARISON: June 07, [address] October 06, [address] TECHNIQUE: Multidetector CT images were obtained from the lung bases to the ischial tuberosities with 75 mL Omnipaque 300 IV and oral contrast. Multiplanar reformation. REPORT: Persistent atelectasis of the RIGHT upper lobe. Subsegmental atelectasis at the basilar segments of the lower lobes. Negative for pleural effusions. Negative for hepatic lesions. Unremarkable gallbladder. Negative for biliary dilatation. Moderately severe atrophy of the pancreas without suspicious CT finding. Unremarkable spleen. Enteric contrast extends to the rectum. Negative for CT abnormality of the upper GI, small bowel, or infra cecal appendix. Moderate colonic diverticulosis without findings of diverticulitis. Negative for ascites, free air, hernias. 1.1 cm diameter unchanged LEFT adrenal nodule is consistent with a benign lipid rich adenoma based on low density measurement on the prior noncontrast CT. Unremarkable RIGHT adrenal gland. Symmetric nephrograms and pyelograms. No focal renal lesions visualized. Unremarkable ureters. Moderately distended urinary bladder is remarkable for multiple small diverticula. Post hysterectomy. No visualized adnexal region lesions. Negative for lymphadenopathy. Atherosclerotic calcification of normal diameter abdominal aorta and iliac arteries. Physiologic distention of the IVC. Postsurgical change of anterior and posterior L4-L5 and L5-S1 fusion. No suspicious focal osseous lesions evident. IMPRESSION: 1. No evidence for abdominal pelvic metastatic disease. 2. Colonic diverticulosis. 3. 1.1 cm benign LEFT adrenal adenoma. 4. Negative for lymphadenopathy. 5. No suspicious osseous lesions evident.
[2016-10-10] MEDS: Acetaminophen TAB* 325 MG PO PRN (22:24)
[2016-10-11] MEDS: Levalbuterol 1.25MG/0.5ML NEB INH SCH ×6 (03:39→22:44)
[2016-10-11] MEDS: Meropenem 1 GM PREMIX(*) 1 GM/50 ML BAG IV SCH ×3 (05:36→21:38)
[2016-10-11] MEDS: Heparin VIAL(*) 5000 UNITS/ML VIAL (FIVE THOUSAND) SUBCUT SCH ×3 (05:41→21:37)
[2016-10-11 05:51] LABS: Hematocrit 33 % (35-47); Hemoglobin 10.6 g/dl (12.0-16.0); Mean Corpuscular HGB Conc 33 g/dl (31-36); Mean Corpuscular Hemoglobin 28 pg (27-31); Mean Corpuscular Volume 87 fL (80-97); Mean Platelet Volume 7 um3 (7.4-10.4); Red Blood Count 3.73 10^6/ul (4.0-5.4); Red Cell Distribution Width 14 % (10.5-15); White Blood Count 17.6 10^3/ul (3.5-10.8)
[2016-10-11 05:52] LABS: Add Diff/Slide Review? Slide Review Added; Comments Flag Yes
[2016-10-11 06:14] LABS: Hypochromasia 1+; Immature Granulocytes 14 % (0-9); Macrocytosis 1+; Metamyelocytes % 4 % (0-2); Microcytosis 1+; Neutrophil % 73 % (38-83); Reactive Lymph % 1 % (0-6); Stomatocytes 1+
[2016-10-11] MEDS: ROFLUMILAST 500 MCG PO SCH (07:32)
[2016-10-11] MEDS: predniSONE TAB* 20 MG PO SCH (07:33)
[2016-10-11] MEDS: MINERA AREDS PO SCH (07:33)
[2016-10-11] MEDS: Aspirin Low Dose CHEW TAB* 81 MG PO SCH (07:33)
[2016-10-11] MEDS: MULTIVITAMINS PO SCH (07:33)
[2016-10-11] MEDS: Omeprazole CAP* 20 MG PO SCH (07:34)
[2016-10-11] MEDS: Calcium/Vitamin D TAB 250/125* TAB PO SCH (07:34)
[2016-10-11] MEDS: Insulin LISPRO* 1 UNITS UNIT SUBCUT SCH ×3 (07:35→18:07)
[2016-10-11] MEDS: Mometasone/Formoter 100/5 MDI INH SCH ×2 (07:46→20:21)
[2016-10-11] MEDS: Tiotropium CAP.INH* CAP.INH/18 MCG (USE ORDER SET !) INH SCH (07:46)
[2016-10-11] MEDS: Lisinopril TAB* 10 MG PO SCH (08:44)
[2016-10-11] MEDS: Montelukast Sodium TAB* 10 MG PO SCH (08:45)
--- NOTE | 2016-10-11 09:55 | PN ---
Subjective Date of Service: 10/11/16 Interval History: Patient seen and examined at bedside. Pt states that she continues to feel better. Denies fever, chills, chest discomfort, N/V/D. Pt continues to have shortness of breath. Family History: Unchanged from Admission Social History: Unchanged from Admission Past Medical History: Unchanged from Admission Objective Active Medications: Acetaminophen (Tylenol Tab*) 650 mg PO Q4H PRN Reason: PAIN Aspirin (Aspirin Low Dose Tab*) 81 mg PO DAILY ROBERTO Calcium/Vitamin D (Oscal D Tab 250/125*) 2 tab PO DAILY [facility] Device (Tiotropium Inhaler Device*) 1 each .SEE ORDER .USE w/ SPIRIVA CAPS ROBERTO Dextrose (D50w Syringe 50 Ml*) 12.5 gm IV PUSH .FOR FS < 60 - SS PRN Reason: FS < 60 Docusate Sodium (Colace Cap*) 100 mg PO DAILY PRN Reason: CONSTIPATION Heparin Sodium (Porcine) (Heparin Vial(*)) 5,000 units SUBCUT Q8HR ROBERTO Heparin Sodium (Porcine) (Heparin Flush Picc/Ml/Cvc(*)) 0 ml FLUSH 0600,1800 ROBERTO Meropenem (Merrem 1 Gm Premix(*)) 1 gm in 50 mls @ 100 mls/hr IV Q8H ROBERTO Stop: 10/14/16 13:29 Insulin Human Lispro (Humalog*) 0 units SUBCUT AC ROBERTO Levalbuterol HCl (Xopenex 1.25 Mg/0.5 Ml Neb.Ernestina*) 1.25 mg INH Q2H PRN Reason: SOB/WHEEZING Levalbuterol HCl (Xopenex 1.25 Mg/0.5 Ml Neb.Ernestina*) 1.25 mg INH [id number] AWAKE ROBERTO Lisinopril (Prinivil Tab*) 10 mg PO DAILY ROBERTO Magnesium Hydroxide (Milk Of Magnesia Liq*) 30 ml PO Q6H PRN Reason: CONSTIPATION Melatonin (Melatonin (Nf)) 3 mg PO BEDTIME PRN; Protocol Reason: Sleep Mometasone Furoate/Formoterol Fumar (Dulera 100/5 Mdi*) 2 puff INH BID ROBERTO Montelukast Sodium (Singulair Tab*) 10 mg PO DAILY [facility] Multivitamins/Minerals (Preservision Areds(Multivitamins/Mineral)(Nf)) 1 cap PO DAILY ROBERTO Omeprazole (Prilosec Cap*) 20 mg PO DAILY ROBERTO Polyethylene Glycol/Electrolytes (Miralax*) 17 gm PO DAILY PRN Reason: CONSTIPATION Prednisone (Deltasone Tab*) 20 mg PO DAILY ROBERTO Roflumilast (Daliresp (Nf)) 500 mcg PO DAILY ROBERTO Simethicone (Mylicon*) 80 mg PO ACHS PRN Reason: bloating Sodium Chloride (Sodium Chloride 0.65% Nasal [place]*) 1 spray BOTH NARES Q1H PRN Reason: NASAL CONGESTION Tiotropium [place] (Spiriva Cap.Inh*) 1 cap INH DAILY ROBERTO Vital Signs 10/10/16 10/10/16 10/10/16 11:10 11:44 15:11 Temperature 98.1 F Pulse Rate 84 96 96 Respiratory 24 Rate Blood Pressure 143/56 (mmHg) O2 Sat by Pulse 96 99 Oximetry 10/10/16 10/10/16 10/10/16 16:07 19:47 19:51 Temperature 98.6 F 97.8 F Pulse Rate 116 101 105 Respiratory 16 18 20 Rate Blood Pressure 146/62 105/45 (mmHg) O2 Sat by Pulse 94 96 96 Oximetry 10/10/16 10/10/16 10/10/16 20:00 23:15 23:50 Temperature 98.0 F Pulse Rate 84 88 Respiratory 28 18 28 Rate Blood Pressure 121/44 (mmHg) O2 Sat by Pulse 98 94 Oximetry 10/11/16 10/11/16 10/11/16 03:32 03:41 07:50 Temperature 97.2 F Pulse Rate 83 83 92 Respiratory 24 16 18 Rate Blood Pressure 113/49 (mmHg) O2 Sat by Pulse 97 96 96 Oximetry 10/11/16 10/11/16 08:00 08:55 Temperature Pulse Rate 98 Respiratory 18 18 Rate Blood Pressure 120/44 (mmHg) O2 Sat by Pulse 96 Oximetry Oxygen Devices in Use Now: Nasal Cannula - 3 L Appearance: NAD, sitting up in a chair Ears/Nose/Mouth/Throat: Mucous Membranes Moist Respiratory: Symmetrical Chest Expansion and Respiratory Effort, - - Lung sounds diminished with exp wheeze Cardiovascular: NL Sounds; No Murmurs; No JVD, RRR Abdominal: NL Sounds; No Tenderness; No Distention Extremities: No Edema Neurological: Alert and Oriented x 3, NL Muscle Strength and Tone Lines/Tubes/Other Access: Clean, Dry and Intact Peripheral IV - midline and IV sites benign Nutrition: Taking PO's Result Diagrams: 10/11/16 05:30 10/05/16 06:53 Microbiology and Other Data: Microbiology 09/28/16 11:25 Nasal Screen MRSA (PCR)(FRANKLYN) - Final Nasal Mrsa Negative Microbiology 10/07/16 12:55 Body Fluid - Right Upper Lobe Gram Stain - Final 10/07/16 12:55 Body Fluid - Right Upper Lobe Acid Fast Bacilli Smear - Final 10/07/16 12:55 Body Fluid - Right Upper Lobe Body Fluid Culture - Preliminary Pseudomonas Aeruginosa Normal [facility]: CXR, on admission: Right paramediastinal soft tissue prominence, follow up imaging was recommended. No infiltrate noted. CT chest, 09/30: IMPRESSION: 1. Relative to the most recent CT of the chest dated August 03, 2013 there has been complete collapse and consolidation of the right upper lobe which corresponds to the density seen on the most recent chest x-ray. 2. Degenerative findings include widespread emphysematous changes. CT chest 10/06 - no change to RUL collapse, new infiltrates noted in CESAR and RLL CXR 10/08 - persistent collapse of RUL CXR 10/09 - persistent complete atelectasis of RUL, COPD EKG Data: EKG, on admission: sinus tachycardia at 103 beats per minute, low voltage on the precordial leads, but no acute ischemic changes. No significant change when compared to EKG from July 2013. Assess/Plan/Problems-Billing Assessment: Ms. Rojas is an 81 yo female with a PMH of COPD with chronic O2 use (2L), HTN , and GERD who presented to the ED on 09/28 with concern for respiratory distress that is secondary to COPD exacerbation, SIRS, and acute on chronic hypoxic respiratory failure. - Patient Problems (1) Right upper lobe pneumonia Code(s): J18.1 - LOBAR PNEUMONIA, UNSPECIFIED ORGANISM SNOMED Code(s): 806498879 Comment: - Collapse and consolidation of right upper lobe, resistant to metnebs now s/p bronchoscopy with persistent consolidation noted on CXR yesterday am and this am - Urine antigens for S.pneumoniae and legionella negative - Appreciate pulmology consult - Plan to continue with metanebs - BAL sample growing pseudomonas, she completed multiple days of Levaquin, sensitivities show pseudomonas is resistant to levaquin, she has allergies to PCNs and cephalosporins limiting choices for antipseudomonal agents - Levaquin had been resumed, but pseudomonas is resistant to levaquin. - Continue meropenem, will continue for a total of 5 days (day 2/5) (2) Squamous cell lung cancer Code(s): C34.90 - MALIGNANT NEOPLASM OF UNSP PART OF UNSP BRONCHUS OR LUNG SNOMED Code(s): 249139184 Comment: - Onc consult, input appreciated - Pt is interested in possible Hospice if she has mets - Plan for possible radiation treatments after staging completed - CT ABD/pelvis shows no mets (will need outpatient PET scan and followup with Oncology and Radiation Oncology) (3) Acute and chronic respiratory failure with hypoxia Code(s): J96.21 - ACUTE AND CHRONIC RESPIRATORY FAILURE WITH HYPOXIA SNOMED Code(s): 872971270 Comment: - Improving, now down to 3L supplemental O2 - Secondary to COPD exacerbation and pna - Patient is chronically on 2L nc. (4) COPD (chronic obstructive pulmonary disease) Code(s): J44.9 - CHRONIC OBSTRUCTIVE PULMONARY DISEASE, UNSPECIFIED SNOMED Code(s): 99130440 Comment: - With acute exacerbation and RUL pna - Slowly improving, down to 3L supplemental O2. On 2L via NC at home - Continue meropenem, steroids, metanebs, nebulizers, chest physiotherapy, supportive care. - Continue steroid taper - Continue home montelukast, Daliresp, Spiriva. (5) SIRS (systemic inflammatory response syndrome) Code(s): R65.10 - SIRS OF NON-INFECTIOUS ORIGIN W/O ACUTE ORGAN DYSFUNCTION SNOMED Code(s): 933091423 Comment: - Secondary to PNA - Meeting criteria on admission with leukocytosis, tachycardia, and tachypnea. - Continues to have leukocytosis. Tachypnea and tachycardia have resolved and afebrile (6) GERD (gastroesophageal reflux disease) Code(s): K21.9 - GASTRO-ESOPHAGEAL REFLUX DISEASE WITHOUT ESOPHAGITIS SNOMED Code(s): 247838176 Comment: - Continue omeprazole. (7) HTN (hypertension) Code(s): I10 - ESSENTIAL (PRIMARY) HYPERTENSION SNOMED Code(s): 92885471 Comment: - Normotensive - Continue lisinopril (8) DVT prophylaxis Code(s): [id number] - SNOMED Code(s): 731934113 Comment: - SQ heparin (9) Full code status Code(s): Z78.9 - OTHER SPECIFIED HEALTH STATUS SNOMED Code(s): 420081906 Status and Disposition: Inpatient admit. Plan for discharge on Saturday 10/14 after completion of 5 days IV meropenem.
[2016-10-11] MEDS: Acetaminophen TAB* 325 MG PO PRN (16:08)
[2016-10-12] MEDS: Acetaminophen TAB* 325 MG PO PRN (02:27)
[2016-10-12] MEDS: Levalbuterol 1.25MG/0.5ML NEB INH SCH ×7 (03:32→22:44)
[2016-10-12] MEDS: Heparin VIAL(*) 5000 UNITS/ML VIAL (FIVE THOUSAND) SUBCUT SCH ×3 (05:43→21:21)
[2016-10-12] MEDS: Meropenem 1 GM PREMIX(*) 1 GM/50 ML BAG IV SCH ×3 (05:43→21:21)
[2016-10-12] MEDS: Aspirin Low Dose CHEW TAB* 81 MG PO SCH (07:18)
[2016-10-12] MEDS: Montelukast Sodium TAB* 10 MG PO SCH (07:18)
[2016-10-12] MEDS: Lisinopril TAB* 10 MG PO SCH (07:19)
[2016-10-12] MEDS: Calcium/Vitamin D TAB 250/125* TAB PO SCH (07:19)
[2016-10-12] MEDS: predniSONE TAB* 20 MG PO SCH (07:19)
[2016-10-12] MEDS: Omeprazole CAP* 20 MG PO SCH (07:20)
[2016-10-12] MEDS: ROFLUMILAST 500 MCG PO SCH (07:20)
[2016-10-12] MEDS: MULTIVITAMINS PO SCH (07:21)
[2016-10-12] MEDS: MINERA AREDS PO SCH (07:21)
[2016-10-12] MEDS: Insulin LISPRO* 1 UNITS UNIT SUBCUT SCH ×3 (07:21→17:23)
[2016-10-12] MEDS: Tiotropium CAP.INH* CAP.INH/18 MCG (USE ORDER SET !) INH SCH (08:36)
[2016-10-12] MEDS: Mometasone/Formoter 100/5 MDI INH SCH ×2 (08:38→19:59)
--- NOTE | 2016-10-12 09:45 | PN ---
Subjective Date of Service: 10/12/16 Interval History: Patient seen and examined at bedside. Pt states that she continues to feel better. Denies fever, chills, chest discomfort, N/V/D. Pt continues to have shortness of breath worse with exertion, but has shortness of breath at baseline. Pt states that on 2 occasions (yesterday and a few days prior) when she blew her nose she noticed some blood. Family History: Unchanged from Admission Social History: Unchanged from Admission Past Medical History: Unchanged from Admission Objective Active Medications: Acetaminophen (Tylenol Tab*) 650 mg PO Q4H PRN Reason: PAIN Aspirin (Aspirin Low Dose Tab*) 81 mg PO DAILY [facility] Calcium/Vitamin D (Oscal D Tab 250/125*) 2 tab PO DAILY [facility] Device (Tiotropium Inhaler Device*) 1 each .SEE ORDER .USE w/ SPIRIVA CAPS ROBERTO Dextrose (D50w Syringe 50 Ml*) 12.5 gm IV PUSH .FOR FS < 60 - SS PRN Reason: FS < 60 Docusate Sodium (Colace Cap*) 100 mg PO DAILY PRN Reason: CONSTIPATION Heparin Sodium (Porcine) (Heparin Vial(*)) 5,000 units SUBCUT Q8HR [facility] Heparin Sodium (Porcine) (Heparin Flush Picc/Ml/Cvc(*)) 0 ml FLUSH 0600,1800 ROBERTO Meropenem (Merrem 1 Gm Premix(*)) 1 gm in 50 mls @ 100 mls/hr IV Q8H [facility] Stop: 10/14/16 13:29 Insulin Human Lispro (Humalog*) 0 units SUBCUT AC ROBERTO Levalbuterol HCl (Xopenex 1.25 Mg/0.5 Ml Neb.Ernestina*) 1.25 mg INH Q2H PRN Reason: SOB/WHEEZING Levalbuterol HCl (Xopenex 1.25 Mg/0.5 Ml Neb.Ernestina*) 1.25 mg INH [id number] AWAKE [facility] Lisinopril (Prinivil Tab*) 10 mg PO DAILY [facility] Magnesium Hydroxide (Milk Of Magnesia Liq*) 30 ml PO Q6H PRN Reason: CONSTIPATION Melatonin (Melatonin (Nf)) 3 mg PO BEDTIME PRN; Protocol Reason: Sleep Mometasone Furoate/Formoterol Fumar (Dulera 100/5 Mdi*) 2 puff INH BID ROBERTO Montelukast Sodium (Singulair Tab*) 10 mg PO DAILY ROBERTO Multivitamins/Minerals (Preservision Areds(Multivitamins/Mineral)(Nf)) 1 cap PO DAILY ROBERTO Omeprazole (Prilosec Cap*) 20 mg PO DAILY ROBERTO Polyethylene Glycol/Electrolytes (Miralax*) 17 gm PO DAILY PRN Reason: CONSTIPATION Prednisone (Deltasone Tab*) 20 mg PO DAILY ROBERTO Roflumilast (Daliresp (Nf)) 500 mcg PO DAILY ROBERTO Simethicone (Mylicon*) 80 mg PO ACHS PRN Reason: bloating Sodium Chloride (Sodium Chloride 0.65% Nasal [place]*) 1 spray BOTH NARES Q1H PRN Reason: NASAL CONGESTION Tiotropium [place] (Spiriva Cap.Inh*) 1 cap INH DAILY [facility] Vital Signs 10/11/16 10/11/16 10/11/16 10:34 12:22 15:34 Temperature 97.6 F Pulse Rate 94 94 108 Respiratory 22 20 18 Rate Blood Pressure 108/45 (mmHg) O2 Sat by Pulse 94 97 98 Oximetry 10/11/16 10/11/16 10/11/16 15:59 19:29 19:56 Temperature 98.1 F 98.4 F Pulse Rate 103 97 Respiratory 24 20 24 Rate Blood Pressure 105/38 106/45 (mmHg) O2 Sat by Pulse 96 97 Oximetry 10/11/16 10/11/16 10/11/16 20:23 22:46 23:42 Temperature 97.4 F Pulse Rate 88 93 90 Respiratory 18 18 24 Rate Blood Pressure 104/38 (mmHg) O2 Sat by Pulse 98 98 99 Oximetry 10/12/16 10/12/16 10/12/16 03:15 04:14 07:23 Temperature 98.0 F 98.1 F Pulse Rate 82 85 79 Respiratory 24 16 20 Rate Blood Pressure 119/55 112/49 (mmHg) O2 Sat by Pulse 97 98 95 Oximetry 10/12/16 10/12/16 08:00 08:38 Temperature Pulse Rate 92 Respiratory 18 20 Rate Blood Pressure (mmHg) O2 Sat by Pulse 96 Oximetry Oxygen Devices in Use Now: Nasal Cannula - 3 L Appearance: NAD, sitting up in a chair Ears/Nose/Mouth/Throat: Mucous Membranes Moist Respiratory: Symmetrical Chest Expansion and Respiratory Effort, - - Lung sounds with scattered rhonchi and exp wheeze Cardiovascular: NL Sounds; No Murmurs; No JVD, RRR Abdominal: NL Sounds; No Tenderness; No Distention Extremities: No Edema Skin: No Rash or Ulcers Neurological: Alert and Oriented x 3, NL Muscle Strength and Tone Lines/Tubes/Other Access: Clean, Dry and Intact Peripheral IV - midline, site benign Nutrition: Taking PO's Result Diagrams: 10/11/16 05:30 10/05/16 06:53 Microbiology and Other Data: Microbiology 09/28/16 11:25 Nasal Screen MRSA (PCR)(FRANKLYN) - Final Nasal Mrsa Negative Microbiology 10/07/16 12:55 Body Fluid - Right Upper Lobe Gram Stain - Final 10/07/16 12:55 Body Fluid - Right Upper Lobe Acid Fast Bacilli Smear - Final 10/07/16 12:55 Body Fluid - Right Upper Lobe Body Fluid Culture - Preliminary Pseudomonas Aeruginosa Normal [facility]: CXR, on admission: Right paramediastinal soft tissue prominence, follow up imaging was recommended. No infiltrate noted. CT chest, 09/30: IMPRESSION: 1. Relative to the most recent CT of the chest dated August 03, 2013 there has been complete collapse and consolidation of the right upper lobe which corresponds to the density seen on the most recent chest x-ray. 2. Degenerative findings include widespread emphysematous changes. CT chest 10/06 - no change to RUL collapse, new infiltrates noted in CESAR and RLL CXR 10/08 - persistent collapse of RUL CXR 10/09 - persistent complete atelectasis of RUL, COPD EKG Data: EKG, on admission: sinus tachycardia at 103 beats per minute, low voltage on the precordial leads, but no acute ischemic changes. No significant change when compared to EKG from July 2013. Assess/Plan/Problems-Billing Assessment: Ms. Rojas is an 81 yo female with a PMH of COPD with chronic O2 use (2L), HTN , and GERD who presented to the ED on 09/28 with concern for respiratory distress that is secondary to COPD exacerbation, SIRS, and acute on chronic hypoxic respiratory failure. - Patient Problems (1) Right upper lobe pneumonia Code(s): J18.1 - LOBAR PNEUMONIA, UNSPECIFIED ORGANISM SNOMED Code(s): 330234084 Comment: - Collapse and consolidation of right upper lobe, resistant to metnebs now s/p bronchoscopy with persistent consolidation noted on CXR - Urine antigens for S.pneumoniae and legionella negative - Appreciate pulmology consult - Plan to continue with metanebs - BAL sample growing pseudomonas, she completed multiple days of Levaquin, sensitivities show pseudomonas is resistant to levaquin, she has allergies to PCNs and cephalosporins limiting choices for antipseudomonal agents - Levaquin had been resumed, but pseudomonas is resistant to levaquin. - Continue meropenem, will continue for a total of 5 days (day 3/5) (2) Squamous cell lung cancer Code(s): C34.90 - MALIGNANT NEOPLASM OF UNSP PART OF UNSP BRONCHUS OR LUNG SNOMED Code(s): 017609869 Comment: - Onc consult, input appreciated - Pt is interested in possible Hospice if she has mets - Plan for possible radiation treatments after staging completed - CT ABD/pelvis shows no mets (will need outpatient PET scan and followup with Oncology and Radiation Oncology) (3) Acute and chronic respiratory failure with hypoxia Code(s): J96.21 - ACUTE AND CHRONIC RESPIRATORY FAILURE WITH HYPOXIA SNOMED Code(s): 986167360 Comment: - Improving, now down to 3L supplemental O2 - Secondary to COPD exacerbation and pna - Patient is chronically on 2L nc. (4) COPD (chronic obstructive pulmonary disease) Code(s): J44.9 - CHRONIC OBSTRUCTIVE PULMONARY DISEASE, UNSPECIFIED SNOMED Code(s): 97850895 Comment: - With acute exacerbation and RUL pna - Slowly improving, down to 3L supplemental O2. On 2L via NC at home - Continue meropenem, steroids, metanebs, nebulizers, chest physiotherapy, supportive care. - Continue steroid taper - Continue home montelukast, Daliresp, Spiriva. (5) SIRS (systemic inflammatory response syndrome) Code(s): R65.10 - SIRS OF NON-INFECTIOUS ORIGIN W/O ACUTE ORGAN DYSFUNCTION SNOMED Code(s): 211085599 Comment: - Secondary to PNA - Meeting criteria on admission with leukocytosis, tachycardia, and tachypnea. - Continues to have leukocytosis. Tachypnea and tachycardia have resolved and afebrile (6) GERD (gastroesophageal reflux disease) Code(s): K21.9 - GASTRO-ESOPHAGEAL REFLUX DISEASE WITHOUT ESOPHAGITIS SNOMED Code(s): 955640170 Comment: - Continue omeprazole. (7) HTN (hypertension) Code(s): I10 - ESSENTIAL (PRIMARY) HYPERTENSION SNOMED Code(s): 31771535 Comment: - Normotensive - Continue lisinopril (8) DVT prophylaxis Code(s): BKL7361 - SNOMED Code(s): 446159138 Comment: - SQ heparin (9) Full code status Code(s): Z78.9 - OTHER SPECIFIED HEALTH STATUS SNOMED Code(s): 952125174 Status and Disposition: Inpatient admit. Plan for discharge on Saturday 10/14 after completion of 5 days IV meropenem.
[2016-10-13] MEDS: Acetaminophen TAB* 325 MG PO PRN ×2 (02:20→09:13)
[2016-10-13] MEDS: Levalbuterol 1.25MG/0.5ML NEB INH SCH ×6 (03:05→23:26)
[2016-10-13] MEDS: Meropenem 1 GM PREMIX(*) 1 GM/50 ML BAG IV SCH ×3 (05:50→20:41)
[2016-10-13] MEDS: Heparin VIAL(*) 5000 UNITS/ML VIAL (FIVE THOUSAND) SUBCUT SCH ×3 (05:55→20:42)
[2016-10-13 06:11] LABS: Hematocrit 32 % (35-47); Hemoglobin 10.3 g/dl (12.0-16.0); Mean Corpuscular HGB Conc 32 g/dl (31-36); Mean Corpuscular Hemoglobin 28 pg (27-31); Mean Corpuscular Volume 87 fL (80-97); Mean Platelet Volume 7 um3 (7.4-10.4); Red Blood Count 3.67 10^6/ul (4.0-5.4); Red Cell Distribution Width 14 % (10.5-15); White Blood Count 11.1 10^3/ul (3.5-10.8)
[2016-10-13 06:15] LABS: Add Diff/Slide Review? Slide Review Added; Comments Flag Yes
[2016-10-13] MEDS: Tiotropium CAP.INH* CAP.INH/18 MCG (USE ORDER SET !) INH SCH (07:10)
[2016-10-13] MEDS: Mometasone/Formoter 100/5 MDI INH SCH ×2 (07:10→19:58)
[2016-10-13] MEDS: Insulin LISPRO* 1 UNITS UNIT SUBCUT SCH ×3 (07:54→16:59)
[2016-10-13] MEDS: Aspirin Low Dose CHEW TAB* 81 MG PO SCH (09:13)
[2016-10-13] MEDS: Omeprazole CAP* 20 MG PO SCH (09:14)
[2016-10-13] MEDS: Lisinopril TAB* 10 MG PO SCH (09:14)
[2016-10-13] MEDS: MULTIVITAMINS PO SCH (09:14)
[2016-10-13] MEDS: Calcium/Vitamin D TAB 250/125* TAB PO SCH (09:14)
[2016-10-13] MEDS: MINERA AREDS PO SCH (09:14)
[2016-10-13] MEDS: Montelukast Sodium TAB* 10 MG PO SCH (09:14)
[2016-10-13] MEDS: predniSONE TAB* 20 MG PO SCH (09:14)
[2016-10-13] MEDS: ROFLUMILAST 500 MCG PO SCH (09:15)
--- NOTE | 2016-10-13 16:28 | PN ---
Subjective Date of Service: 10/13/16 Interval History: Patient seen and examined at bedside. Pt states that she continues to feel better. Denies fever, chills, chest discomfort, N/V/D. Shortness of breath is close to baseline. She is requiring 2.5L via NC and uses 2L at home. Pt states that she has shortness of breath at baseline doing dishes at home. Family History: Unchanged from Admission Social History: Unchanged from Admission Past Medical History: Unchanged from Admission Objective Active Medications: Acetaminophen (Tylenol Tab*) 650 mg PO Q4H PRN Reason: PAIN Aspirin (Aspirin Low Dose Tab*) 81 mg PO DAILY [facility] Calcium/Vitamin D (Oscal D Tab 250/125*) 2 tab PO DAILY [facility] Device (Tiotropium Inhaler Device*) 1 each .SEE ORDER .USE w/ SPIRIVA CAPS [facility] Dextrose (D50w Syringe 50 Ml*) 12.5 gm IV PUSH .FOR FS < 60 - SS PRNN Reason: FS < 60 Docusate Sodium (Colace Cap*) 100 mg PO DAILY PRN Reason: CONSTIPATION Heparin Sodium (Porcine) (Heparin Vial(*)) 5,000 units SUBCUT Q8HR [facility] Heparin Sodium (Porcine) (Heparin Flush Picc/Ml/Cvc(*)) 0 ml FLUSH 0600,1800 ROBERTO Meropenem (Merrem 1 Gm Premix(*)) 1 gm in 50 mls @ 100 mls/hr IV Q8H [facility] Stop: 10/14/16 13:29 Insulin Human Lispro (Humalog*) 0 units SUBCUT AC [facility] Reason: Protocol Levalbuterol HCl (Xopenex 1.25 Mg/0.5 Ml Neb.Ernesitna*) 1.25 mg INH Q2H PRN Reason: SOB/WHEEZING Levalbuterol HCl (Xopenex 1.25 Mg/0.5 Ml Neb.Ernestina*) 1.25 mg INH [id number] AWAKE [facility] Lisinopril (Prinivil Tab*) 10 mg PO DAILY [facility] Magnesium Hydroxide (Milk Of Magnesia Liq*) 30 ml PO Q6H PRN Reason: CONSTIPATION Melatonin (Melatonin (Nf)) 3 mg PO BEDTIME PRN; Protocol Reason: Sleep Mometasone Furoate/Formoterol Fumar (Dulera 100/5 Mdi*) 2 puff INH BID ROBERTO Montelukast Sodium (Singulair Tab*) 10 mg PO DAILY ROBERTO Multivitamins/Minerals (Preservision Areds(Multivitamins/Mineral)(Nf)) 1 cap PO DAILY ROBERTO Omeprazole (Prilosec Cap*) 20 mg PO DAILY ROBERTO Polyethylene Glycol/Electrolytes (Miralax*) 17 gm PO DAILY PRN Reason: CONSTIPATION Prednisone (Deltasone Tab*) 20 mg PO DAILY ROBERTO Roflumilast (Daliresp (Nf)) 500 mcg PO DAILY ROBERTO Simethicone (Mylicon*) 80 mg PO ACHS PRN Reason: bloating Sodium Chloride (Sodium Chloride 0.65% Nasal [place]*) 1 spray BOTH NARES Q1H PRN Reason: NASAL CONGESTION Tiotropium [place] (Spiriva Cap.Inh*) 1 cap INH DAILY [facility] Vital Signs 10/12/16 10/12/16 10/12/16 18:14 19:26 20:00 Temperature 98.4 F Pulse Rate 103 94 88 Respiratory 16 16 19 Rate Blood Pressure 127/43 (mmHg) O2 Sat by Pulse 98 96 96 Oximetry 10/12/16 10/12/16 10/13/16 22:45 23:35 03:06 Temperature 98.1 F Pulse Rate 80 92 81 Respiratory 20 17 20 Rate Blood Pressure 112/40 (mmHg) O2 Sat by Pulse 98 97 99 Oximetry 10/13/16 10/13/16 10/13/16 04:44 07:14 08:00 Temperature 97.4 F Pulse Rate 91 78 Respiratory 16 16 21 Rate Blood Pressure 106/40 (mmHg) O2 Sat by Pulse 97 96 Oximetry 10/13/16 10/13/16 10/13/16 08:10 10:57 11:36 Temperature 98.4 F 98.4 F Pulse Rate 92 78 87 Respiratory 21 16 22 Rate Blood Pressure 128/46 114/46 (mmHg) O2 Sat by Pulse 97 96 96 Oximetry 10/13/16 10/13/16 15:05 15:33 Temperature 98.0 F Pulse Rate 78 98 Respiratory 16 20 Rate Blood Pressure 138/47 (mmHg) O2 Sat by Pulse 99 97 Oximetry Oxygen Devices in Use Now: Nasal Cannula - 2.5 L Appearance: NAD, sitting up in a chair Ears/Nose/Mouth/Throat: Mucous Membranes Moist Respiratory: Symmetrical Chest Expansion and Respiratory Effort, - - Scattered rhonchi throughout Cardiovascular: NL Sounds; No Murmurs; No JVD, RRR Abdominal: NL Sounds; No Tenderness; No Distention Extremities: No Edema Skin: No Rash or Ulcers Neurological: Alert and Oriented x 3, NL Muscle Strength and Tone Lines/Tubes/Other Access: Clean, Dry and Intact Peripheral IV - site benign, Midline - site benign Nutrition: Taking PO's Result Diagrams: 10/13/16 05:40 10/05/16 06:53 Additional Lab and Data: . Microbiology and Other Data: Microbiology 09/28/16 11:25 Nasal Screen MRSA (PCR)(FRANKLYN) - Final Nasal Mrsa Negative Microbiology 10/07/16 12:55 Body Fluid - Right Upper Lobe Gram Stain - Final 10/07/16 12:55 Body Fluid - Right Upper Lobe Acid Fast Bacilli Smear - Final 10/07/16 12:55 Body Fluid - Right Upper Lobe Body Fluid Culture - Preliminary Pseudomonas Aeruginosa Normal [facility]: CXR, on admission: Right paramediastinal soft tissue prominence, follow up imaging was recommended. No infiltrate noted. CT chest, 09/30: IMPRESSION: 1. Relative to the most recent CT of the chest dated August 03, 2013 there has been complete collapse and consolidation of the right upper lobe which corresponds to the density seen on the most recent chest x-ray. 2. Degenerative findings include widespread emphysematous changes. CT chest 10/06 - no change to RUL collapse, new infiltrates noted in CESAR and RLL CXR 10/08 - persistent collapse of RUL CXR 10/09 - persistent complete atelectasis of RUL, COPD EKG Data: EKG, on admission: sinus tachycardia at 103 beats per minute, low voltage on the precordial leads, but no acute ischemic changes. No significant change when compared to EKG from July 2013. Assess/Plan/Problems-Billing Assessment: Ms. Rojas is an 81 yo female with a PMH of COPD with chronic O2 use (2L), HTN , and GERD who presented to the ED on 09/28 with concern for respiratory distress that is secondary to COPD exacerbation, SIRS, and acute on chronic hypoxic respiratory failure. - Patient Problems (1) Right upper lobe pneumonia Code(s): J18.1 - LOBAR PNEUMONIA, UNSPECIFIED ORGANISM SNOMED Code(s): 654506818 Comment: - Collapse and consolidation of right upper lobe, resistant to metnebs now s/p bronchoscopy with persistent consolidation noted on CXR - Urine antigens for S.pneumoniae and legionella negative - Appreciate pulmology consult - Plan to continue with metanebs - BAL sample growing pseudomonas, she completed multiple days of Levaquin, sensitivities show pseudomonas is resistant to levaquin, she has allergies to PCNs and cephalosporins limiting choices for antipseudomonal agents - Levaquin had been resumed, but pseudomonas is resistant to levaquin. - Leukocytosis and CRP improving - Continue meropenem, will continue for a total of 5 days (day 4/5, will complete ABX in the AM) (2) Squamous cell lung cancer Code(s): C34.90 - MALIGNANT NEOPLASM OF UNSP PART OF UNSP BRONCHUS OR LUNG SNOMED Code(s): 177456936 Comment: - Onc consult, input appreciated - Pt is interested in possible Hospice if she has mets - Plan for possible radiation treatments after staging completed - CT ABD/pelvis shows no mets (will need outpatient PET scan and followup with Oncology and Radiation Oncology) (3) Acute and chronic respiratory failure with hypoxia Code(s): J96.21 - ACUTE AND CHRONIC RESPIRATORY FAILURE WITH HYPOXIA SNOMED Code(s): 062013001 Comment: - Improving, now down to 2.5L supplemental O2 - Secondary to COPD exacerbation and pna - Patient is chronically on 2L nc. (4) COPD (chronic obstructive pulmonary disease) Code(s): J44.9 - CHRONIC OBSTRUCTIVE PULMONARY DISEASE, UNSPECIFIED SNOMED Code(s): 68495603 Comment: - With acute exacerbation and RUL pna - Slowly improving, down to 2.5L supplemental O2. On 2L via NC at home - Continue meropenem, steroids, metanebs, nebulizers, chest physiotherapy, supportive care. - Continue steroid taper - Continue home montelukast, Daliresp, Spiriva. (5) SIRS (systemic inflammatory response syndrome) Code(s): R65.10 - SIRS OF NON-INFECTIOUS ORIGIN W/O ACUTE ORGAN DYSFUNCTION SNOMED Code(s): 399928590 Comment: - Resolved - Secondary to PNA - Meeting criteria on admission with leukocytosis, tachycardia, and tachypnea. - Continues to have leukocytosis, but improving. Tachypnea and tachycardia have resolved and afebrile (6) GERD (gastroesophageal reflux disease) Code(s): K21.9 - GASTRO-ESOPHAGEAL REFLUX DISEASE WITHOUT ESOPHAGITIS SNOMED Code(s): 607966610 Comment: - Continue omeprazole. (7) HTN (hypertension) Code(s): I10 - ESSENTIAL (PRIMARY) HYPERTENSION SNOMED Code(s): 12235901 Comment: - Normotensive - Continue lisinopril (8) DVT prophylaxis Code(s): IPT8688 - SNOMED Code(s): 128171813 Comment: - SQ heparin (9) Full code status Code(s): Z78.9 - OTHER SPECIFIED HEALTH STATUS SNOMED Code(s): 078072002 Status and Disposition: Inpatient admit. Plan for discharge on Saturday 10/14 after completion of 5 days IV meropenem.
[2016-10-14] MEDS: Acetaminophen TAB* 325 MG PO PRN (02:20)
[2016-10-14] MEDS: Levalbuterol 1.25MG/0.5ML NEB INH SCH ×3 (03:33→11:23)
[2016-10-14] MEDS: Meropenem 1 GM PREMIX(*) 1 GM/50 ML BAG IV SCH (05:26)
[2016-10-14] MEDS: Heparin VIAL(*) 5000 UNITS/ML VIAL (FIVE THOUSAND) SUBCUT SCH (05:27)
[2016-10-14] MEDS: Mometasone/Formoter 100/5 MDI INH SCH (08:05)
[2016-10-14] MEDS: Tiotropium CAP.INH* CAP.INH/18 MCG (USE ORDER SET !) INH SCH (08:06)
[2016-10-14] MEDS: Insulin LISPRO* 1 UNITS UNIT SUBCUT SCH ×2 (08:54→12:01)
[2016-10-14] MEDS ORDERED: predniSONE TAB* 10 MG PO SCH (09:00)
[2016-10-14] MEDS: MULTIVITAMINS PO SCH (09:47)
[2016-10-14] MEDS: MINERA AREDS PO SCH (09:47)
[2016-10-14] MEDS: ROFLUMILAST 500 MCG PO SCH (09:47)
[2016-10-14] MEDS: Lisinopril TAB* 10 MG PO SCH (09:48)
[2016-10-14] MEDS: Aspirin Low Dose CHEW TAB* 81 MG PO SCH (09:48)
[2016-10-14] MEDS: Calcium/Vitamin D TAB 250/125* TAB PO SCH (09:48)
[2016-10-14] MEDS: Omeprazole CAP* 20 MG PO SCH (09:48)
[2016-10-14] MEDS: Montelukast Sodium TAB* 10 MG PO SCH (09:48)
[2016-10-14] MEDS ORDERED: Carbamide Peroxide 6.5% OTIC* 15 ML BTL BOTH EARS SCH (11:00)
[2016-10-14] MEDS ORDERED: Fluconazole 100 MG TAB* TAB PO ONE (11:07)
[2016-10-14 11:20] VITALS: BP 117/97
--- NOTE | 2016-10-14 12:09 | DS ---
CC: Dr. Aj Villalobos; Dr. Dotson; Dr. Oliver; Dr. Lozano DATE OF ADMISSION: 09/28/2016. DATE OF DISCHARGE: 10/14/2016. DISCHARGE DIAGNOSES: 1. Sepsis present on admission secondary to pneumonia. 2. Pseudomonas pneumonia. 3. Acute on chronic respiratory failure. 4. Squamous cell lung carcinoma. 5. COPD exacerbation secondary to pneumonia. 6. Leukocytosis. 7. Anemia. SECONDARY DIAGNOSES: 1. Hypertension. 2. COPD on home O2. 3. GERD. MEDICATIONS: 1. Albuterol 2.5 mg nebulized q.4 hours prn shortness of breath. 2. Albuterol HFA two puffs inhaled q.i.d. 3. Aspirin 81 mg p.o. daily. 4. Calcium plus vitamin D two tablets p.o. daily. 5. Fluconazole 150 mg p.o. daily as needed for yeast infection. 6. Lisinopril 10 mg p.o. daily. 7. Montelukast 10 mg p.o. daily. 8. Multivitamin one tab p.o. daily. 9. Omeprazole 20 mg p.o. daily. 10. Roflumilast 500 mcg p.o. daily. 11. Simethicone 80 mg p.o. a.c. at bedtime as needed for bloating. 12. Umeclidinium 62.5 MDI one puff inhaled daily. New medication: Mometasone/Formoterol 100/5 two puffs inhaled b.i.d. Medication change: Prednisone 10 mg p.o. daily for 7 days, then back to 5 mg daily as you were temi lewis before. HOSPITAL COURSE: Ms. Rojas is an 81-year-old lady with a past medical history as stated above who presented to the emergency room with complaints of severe shortness of breath. For more details ab out her presentation, I refer you to her history and physical. In summary, in the emergency room dany smith was found to have COPD exacerbation, initially felt to be secondary to bronchitis. She was admitt ed to the Intensive Care Unit initially where she required Vapotherm. Her chest x-ray had showed a right paramediastinal soft tissue prominence, so a CT of the chest was pursued when her respiratory status improved. It showed complete collapse and consolidation of the right upper lobe. The patien t was seen in consultation by Pulmonology (Dr. Oliver) and her impression was the patient presented with COPD exacerbation, community-acquired pneumonia and right upper lobe atelectasis likely seconda ry to mucus plugging. She recommended MetaNeb, chest physical therapy, and initially the plan was n ot for a bronchoscopy. The patient continued to be treated and a repeat CT done on October 06 show ed persistent right upper lobe collapse, so at that point the patient had a bronchoscopy performed b y Dr. Oliver and thick secretions were noted on the left, no endobronchial lesions were noted on the left side, there was evidence of bronchomalacia on the left side. On the right, the right lower an d middle lobe bronchus were patent with no endobronchial lesions, thick secretions were noted and gallegos ctioned out. There was also evidence of bronchomalacia on the right side. Right upper lobe take of f was narrowed. Bronchoscope could not be advanced with evidence of endobronchial lesion blocking th e anterior segment. Biopsies were obtained. Pathology revealed a squamous cell carcinoma well to m oderately differentiated with focal superficial invasion. The patient was seen in consultation by Oncology (Dr. Dotson) and her recommendation was for full staging and so far we are aware of only localized disease. Given this, Dr. Dotson recommended con sideration of radiation therapy and the patient was in agreement with it. They also discussed full staging with a PET scan after discharge prior to consideration to hospice as Dr. Dotson felt the p atotoniel has a decent performance status and may very well have only localized disease. She was seen by Dr. Lozano while in the hospital and he agreed with Dr. Dotson's recommendation of a PET scan for further staging after discharge to help with decisions about further treatment. The patient had a CT of the abdomen and pelvis to continue her staging and it showed no evidence for abdominal or pelvic metastatic disease, only colonic diverticulosis and 1.1 cm left adrenal adenoma , negative for lymphadenopathy and no suspicious osseous lesions were evident. In the meantime, the patient continued to be treated for infection and her sputum culture grew pseud omonas aeruginosa that was resistant to Levaquin. She was treated with Meropenem and she feels that her breathing is back to its prior to admission baseline. She is felt to be stable for discharge today. She already has a follow-up scheduled for her PET sca n on October [address] Dotson on October 20. PHYSICAL EXAMINATION: General: The patient is a pleasant, elderly lady, sitting up in a chair in n o acute distress. Vital Signs: Temperature 97.8, heart rate 91, respiratory rate 16, oxygen satura tion 99 percent on 2 liters nasal cannula, blood pressure 126/50. CVS: Normal S1, S2, regular rate and rhythm. Chest: Breath sounds present bilaterally, decreased with no added sounds. Abdomen: Soft, bowel sounds are present. Neuro: She is alert and oriented times three, able to move all fou r extremities. DIET: Regular diet. ACTIVITIES: As tolerated. DISPOSITION: To home. STATUS WHILE IN THE HOSPITAL: Inpatient. Please keep in mind this is a summarized version of this patient's complex and prolonged hospital st ay. If you need more information, please feel free to call me at or please obtain the full medical records. Approximately 50 minutes were spent to complete this discharge. [id number]/[facility] #: [id number]
--- NOTE | 2016-10-14 13:11 | PN ---
Progress Note - Progress Note Date of Service: 10/14/16 - Pulm f/u note Note: Pt seen and examined at bedside. Pt reported feeling better today, cough is improved, she is eager to go home Active Medications Generic Name Dose Route Start Last Admin Trade Name Dutch PRN Reason Stop Dose Admin Acetaminophen 650 mg 09/29/16 00:33 10/14/16 02:20 Tylenol Tab* PO 650 mg Q4H PRN Administration PAIN Aspirin 81 mg 09/28/16 11:00 10/14/16 09:48 Aspirin Low Dose Tab* PO 81 mg DAILY ROBERTO Administration Calcium/Vitamin D 2 tab 09/29/16 09:00 10/14/16 09:48 Oscal D Tab 250/125* PO 2 tab DAILY ROBERTO Administration Carbamide Peroxide 2 drop 10/14/16 11:00 10/14/16 12:00 Debrox 6.5% Otic* BOTH EARS 2 drop BID ROBERTO Administration Device 1 each 09/30/16 12:00 Tiotropium Inhaler Device* .SEE ORDER .USE w/ SPIRIVA CAPS [facility] Dextrose 12.5 gm 10/04/16 16:05 D50w Syringe 50 Ml* IV PUSH .FOR FS < 60 - SS PRN FS < 60 Docusate Sodium 100 mg 10/08/16 11:58 10/10/16 09:12 Colace Cap* PO 100 mg DAILY PRN Administration CONSTIPATION Heparin Sodium (Porcine) 5,000 units 09/28/16 14:00 10/14/16 05:27 Heparin Vial(*) SUBCUT 5,000 units Q8HR ROBERTO Administration Heparin Sodium (Porcine) 0 ml 10/01/16 12:00 10/14/16 06:19 Heparin Flush Picc/Ml/Cvc(*) FLUSH 1 ml 0600,1800 ROBERTO Administration Meropenem 1 gm in 50 mls @ 100 mls/hr 10/10/16 13:30 10/14/16 05:26 Merrem 1 Gm Premix(*) IV 10/14/16 13:29 100 mls/hr Q8H ROBERTO Administration Insulin Human Lispro 0 units 10/04/16 16:30 10/14/16 12:01 Humalog* SUBCUT Not Given AC [facility] Protocol Levalbuterol HCl 1.25 mg 09/29/16 10:25 10/10/16 05:02 Xopenex 1.25 Mg/0.5 Ml Neb.Ernestina* INH 1.25 mg Q2H PRN Administration SOB/WHEEZING Levalbuterol HCl 1.25 mg 09/29/16 15:00 10/14/16 11:23 Xopenex 1.25 Mg/0.5 Ml Neb.Ernestina* INH 1.25 mg [id number] AWAKE ROBERTO Administration Lisinopril 10 mg 09/29/16 09:00 10/14/16 09:48 Prinivil Tab* PO 10 mg DAILY ROBERTO Administration Magnesium Hydroxide 30 ml 10/09/16 11:05 10/09/16 20:47 Milk Of Magnesia Liq* PO 30 ml Q6H PRN Administration CONSTIPATION Melatonin 3 mg 09/30/16 00:18 09/30/16 21:56 Melatonin (Nf) PO 3 mg BEDTIME PRN Administration Sleep Protocol Mometasone Furoate/Formoterol Fumar 2 puff 09/28/16 11:00 10/14/16 08:05 Dulera 100/5 Mdi* INH 2 puff BID ROBERTO Administration Montelukast Sodium 10 mg 09/28/16 11:00 10/14/16 09:48 Singulair Tab* PO 10 mg DAILY ROBERTO Administration Multivitamins/Minerals 1 cap 09/30/16 10:00 10/14/16 09:47 Preservision Areds(Multivitamins/Mineral)(Nf) PO 1 cap DAILY ROBERTO Administration Omeprazole 20 mg 09/29/16 09:00 10/14/16 09:48 Prilosec Cap* PO 20 mg DAILY ROBERTO Administration Polyethylene Glycol/Electrolytes 17 gm 10/09/16 11:05 Miralax* PO DAILY PRN CONSTIPATION Prednisone 10 mg 10/14/16 09:00 10/14/16 09:48 Deltasone Tab* PO 10 mg DAILY ROBERTO Administration Roflumilast 500 mcg 09/30/16 10:00 10/14/16 09:47 Daliresp (Nf) PO 500 mcg DAILY ROBERTO Administration Simethicone 80 mg 09/28/16 10:02 Mylicon* PO ACHS PRN bloating Sodium Chloride 1 spray 09/30/16 04:35 10/02/16 04:29 Sodium Chloride 0.65% Nasal [place]* BOTH NARES 1 spray Q1H PRN Administration NASAL CONGESTION Tiotropium [place] 1 cap 09/30/16 12:00 10/14/16 08:06 Spiriva Cap.Inh* INH 1 cap DAILY ROBERTO Administration Vital Signs Temp Pulse Resp BP Pulse Ox 98.0 F 101 18 117/97 98 10/14/16 07:57 10/14/16 11:25 10/14/16 11:25 10/14/16 07:57 10/14/16 11:25 o/E: Pt in NAD, not using accessory muscles, sitting up in chair HEENT: PERRLA, no accessory muscle usage Lungs: dimnished air entry, no wheeze present CVS: S1, S2+, regular Abd: Soft , BS+ Ext: No edema Neuro: No focal defecits, moves all extremities Skin: No rash or bruise Laboratory Results - last 24 hr 10/13/16 10/14/16 16:19 07:40 POC Glucose (mg/dL) 120 H 101 H CXR: Rpt CXR, no signficant improvement in density in RUL corresponding to RUL collpase seen on CTchest CT chest reviewed- No change in RUL collapse, patchy opacities in left lung base Lung biopsy: Positive for squamous cell I/R: 81 y o f with significant smoking history, O2 dependant COPD a/w worsening SOB, cough found to have RUL collpase 1. PNA, likely post obstructive, cx positive for Pseudomonas 2. RUL collpase sec to endobronchial lesion, found to be squamous cell carcinoma 3. Acute on chronic hypoxic resp failure sec to PNA, lung collpase, stable Pt with improved FiO2 requirement, requiring 3L O2 which is her baseline [place] has improved since bronchoscopy 10/07/16 CT chest didnot demonstrate signficant change in density in RUL, s/p bronch 10/07, evidence of endobronchial lesion in RUL with narrowing, s/p biopsy, positive for squamous cell carcinoma Was seen by Oncology, radiation being considered as out pt after staging with PET scan Cultures from BAL growing Pseudomonas, multi drug resistant, treated with Meropenem c/w bronchodilators C/w steroid taper c/w O2 suppl Plan discussed with pt and family
== END 2016-10-14 12:45 | disposition home health service (06) | DRG 853 ==
LOC: ED 08:22 → ICU 09:54 → MED 10-01 12:24
PROVIDERS: ADMIT Internal Medicine; ATTEND Internal Medicine
PROC: 02HV33Z Insertion of Infusion Device into Superior Vena Cava, Percutaneous Approach (ICD-10-PCS; 2016-10-01)
PROC: 0BBC8ZX Excision of Right Upper Lung Lobe, Via Natural or Artificial Opening Endoscopic, Diagnostic (ICD-10-PCS; 2016-10-07)
PROC: 0B9C8ZX Drainage of Right Upper Lung Lobe, Via Natural or Artificial Opening Endoscopic, Diagnostic (ICD-10-PCS; principal; 2016-10-07 12:00)
DX: A41.9 Sepsis, unspecified organism (principal); J15.1 Pneumonia due to Pseudomonas; J96.21 Acute and chronic respiratory failure with hypoxia; T17.590A Other foreign object in bronchus causing asphyxiation, initial encounter; C34.11 Malignant neoplasm of upper lobe, right bronchus or lung; J44.1 Chronic obstructive pulmonary disease with (acute) exacerbation; Z99.81 Dependence on supplemental oxygen; J98.11 Atelectasis; I10 Essential (primary) hypertension; K21.9 Gastro-esophageal reflux disease without esophagitis; M81.0 Age-related osteoporosis without current pathological fracture; M19.90 Unspecified osteoarthritis, unspecified site; M48.00 Spinal stenosis, site unspecified; Z16.23 Resistance to quinolones and fluoroquinolones; J39.8 Other specified diseases of upper respiratory tract; J98.09 Other diseases of bronchus, not elsewhere classified; K57.30 Diverticulosis of large intestine without perforation or abscess without bleeding; D35.02 Benign neoplasm of left adrenal gland; Z98.41 Cataract extraction status, right eye; Z98.42 Cataract extraction status, left eye; Z90.722 Acquired absence of ovaries, bilateral; Z90.710 Acquired absence of both cervix and uterus; Z87.891 Personal history of nicotine dependence; Z88.1 Allergy status to other antibiotic agents; Z88.8 Allergy status to other drugs, medicaments and biological substances; Z88.0 Allergy status to penicillin; Z79.82 Long term (current) use of aspirin
CPT/HCPCS: 36415; 71010; 71020; 71250; 74177; 80048; 80053; 81003; 81015; 83605; 83690; 83735; 83880; 84484; 85025; 85610; 85730; 86140; 87040; 87070; 87077; 87086; 87102; 87116; 87186; 87205; 87206; 87641; 87899; 88112; 88305; 88341; 88342; 93005; 94640; 94667; 94668; 94669; 94760; 99223; A9270-GY; J1644; J1956; J2185; J2270; J2920; J2997; J7512; Q9967

== ENCOUNTER 2018-10-12 10:43 | Observation (INO) | payer MEDICARE ==
[2018-10-12] MEDS ORDERED: methylPREDNISolone 125 MG* 2 ML VIAL IV ONE (11:11)
[2018-10-12] MEDS ORDERED: Levalbuterol 1.25MG/0.5ML NEB INH ONE (11:11)
--- NOTE | 2018-10-12 11:12 | ED ---
Shortness of Breath - HPI Summary HPI Summary: The patient is an 83 y/o F presenting to [facility] accompanied by friend Julianne and daughter Jennifer with a chief complaint of gradual worsening of SOB since . She reports that on 10/08/18, she had SOB possibly secondary to hx of COPD despite use of 2L O2 at home, so she went to her PCPs office (she sees Dr. Magalys Mott MD, who is currently on vacation), and she was prescribed 50mg Prednisone for 3 days (completed) and a 5-day course of BID 100mg Doxcycline ( complete in 2 days and not taken today) without relief thus far during the courses. The following day, she felt better but then had new onset of upper abdominal pain that she states feels more like her diaphragm breathing with dyspnea at rest worsened with deep breathing and not gallbladder pain in the RUQ. She denies any nausea, vomiting, or fever. She additionally notes that she had a tick bite approximately a month ago, and she was tested for Lyme disease a week ago with negative results, but she is currently reporting intermittent headaches that have continued since then. She denies overall pain rated 0/10 in severity. She states that she uses Incruse, Levalbuterol, and Albuterol inhalers at home that she has used today but is still experiencing pain and SOB. She has seen Dr. Oliver, pulmonology, but not recently. PMHx: HTN, asthma, COPD, chronic bronchitis, GERD, osteoporosis, squamous cell lung cancer ( radiation finished a year ago Dr. Lozano, no chemotherapy). Former smoker, no EtOH, no substance use. Vital signs while in room: HR 86 bpm, BP 162/63 mmHg, O2 sat 95% (on 2L O2 in the room) CARDIAC RISK: (-) HTN, (-) DM, (-) HLD, (+) FHx cardiac disease and DM, (+) Former smoker Home Medications Medication Instructions Recorded Confirmed Type Montelukast Sodium TAB* [Singulair 10 mg PO DAILY 11/12/11 02/16/18 History 10 MG TAB*] Roflumilast (NF) [Daliresp (NF)] 500 mcg PO DAILY 06/07/15 02/16/18 History Umeclidinium 62.5 MDI(NF) [Incruse 62.5 mcg INH DAILY 06/07/15 02/16/18 History ELLIPTA MDI (NF)] Budesonide/Formote 80/4.5(NF) 2 puff INH BID 01/11/18 02/16/18 History [Symbicort 80/4.5 (NF)] Acetaminophen [Acetaminophen Extra 500 mg PO TID PRN 02/16/18 02/16/18 History Strength] Albuterol HFA INHALER* [Ventolin 2 puff INH Q4H PRN 02/16/18 02/16/18 History HFA Inhaler*] Calcium Carb/Vitamin D3/Vit K1 1 chw PO BID 02/16/18 02/16/18 History [Calcium + D Soft Chewable Tab] Levalbuterol 1.25 mg/3 mL (NF) 3 ml INH Q4HR PRN 02/16/18 02/16/18 History [Levalbuterol HCl] Lisinopril TAB* [Prinivil TAB 10 10 mg PO DAILY 02/16/18 02/16/18 History MG*] Lutein/Zeaxanthin [Ocuvite Lutein 1 cap PO DAILY 02/16/18 02/16/18 History 25-5 mg Softgel] Omeprazole CAP (NF) [Prilosec CAP* 20 mg PO DAILY 02/16/18 02/16/18 History 20 MG] Polyethylene Glycol 3350* 17 gm PO DAILY PRN 02/16/18 02/16/18 History [Miralax*] Zoledronic/Mannitol 5 MG/100ML 5 mg INFUSION ONCE 02/16/18 02/16/18 History [Reclast 5 MG/100ML] Azithromycin TAB* [Zithromax TAB 250 mg PO DAILY #4 tab 02/17/18 Rx (Z-LAYO) 250 mg #6 tabs] predniSONE TAB* [Deltasone 10 MG 5 mg PO DAILY #0 02/17/18 02/16/18 Rx TAB*] predniSONE [Deltasone 20 MG TAB] 40 mg PO DAILY #8 tablet 02/17/18 Rx - History of Current Complaint Chief Complaint: EDShortnessOfBreath Time Seen by Provider: 10/12/18 10:52 Hx Obtained From: Patient, Family/Municipal Clerk - Julianne (friend), Jennifer (daughter) Onset/Duration: Gradual Onset, Lasting Days - 10/08/18, Still Present, Worse Since - 10/09/18 Timing: Constant Dyspnea At: Rest Aggravating Factors: Deep Breaths Alleviating Factors: Nothing Associated Signs & Symptoms: Cough (Nonproductive) - Allergy/Home Medications Allergies/Adverse Reactions: Allergies Allergy/AdvReac Type Severity Reaction Status Date / Time amoxicillin Allergy Severe Difficulty Verified 02/16/18 11:11 Breathing cephalexin Allergy Severe Anaphylatic Verified 02/16/18 11:11 Shock clavulanic acid Allergy Severe Difficulty Verified 02/16/18 11:11 [From Augmentin] Breathing guaifenesin [From Mucinex] Allergy Unknown Verified 02/16/18 11:11 Reaction Details Home Medications: Home Medications Albuterol HFA INHALER* [Ventolin HFA Inhaler*] 2 puff INH Q4H PRN 10/12/18 [ History Confirmed 10/12/18] Methimazole TAB* [Tapazole TAB*] 5 mg PO DAILY 10/12/18 [History Confirmed 10/12] Ranitidine TAB (NF) [Zantac TAB (NF)] 150 mg PO BID 10/12/18 [History Confirmed 10/12/18] PMH/Surg Hx/FS Hx/Imm Hx Previously Healthy: No Endocrine/Hematology History: Denies: Hx Blood Disorders, Hx Blood Transfusions, Hx Bone Marrow Disease, Hx Diabetes, Hx Systemic Lupus Erythematosus, Hx Sickle Cell Disease, Hx Thyroid Disease, Hx Anemia, Other Endocrine/Hematological Disorders Cardiovascular History: Reports: Hx Hypertension Denies: Hx Aneurysm, Hx Angina, Hx Angioplasty, Hx Auto Implanted Cardiovert Defib, Hx Cardiac Arrest, Hx Cardiomegaly, Hx Congenital Heart Disease, Hx Congestive Heart Failure, Hx Coronary Artery Disease, Hx Deep Vein Thrombosis, Hx Hypercholesterolemia, Hx Hypotension, Hx Myocardial Infarction, Hx Pacemaker/ ICD Respiratory History: Reports: Hx Asthma, Hx Chronic Bronchitis, Hx Chronic Obstructive Pulmonary Disease (COPD) Denies: Hx Bronchopulmonary Dysplasia, Hx Cystic Fibrosis, Hx Lung Cancer, Hx Pleural Effusion, Hx Pneumonia, Hx Pulmonary Edema, Hx Pulmonary Embolism, Hx Seasonal Allergies, Hx Sleep Apnea, Other Respiratory Problems/Disorders GI History: Reports: Hx Gastroesophageal Reflux Disease, Hx Hiatal Hernia Denies: Hx Cirrhosis, Hx Crohn's Disease, Hx Diverticulosis, Hx Gall Bladder Disease, Hx Gastrointestinal Bleed, Hx Irritable Bowel, Hx Jaundice, Hx Obstructive Bowel, Hx Ileostomy, Hx Pyloric Stenosis, Hx Ulcer History: Denies: Hx Acute Renal Failure, Hx Benign Prostatic Hyperplasia, Hx Chronic Renal Failure, Hx Dialysis, Hx Kidney Infection, Hx Kidney Stones, Hx Renal Disease, Other Problems/Disorders Musculoskeletal History: Reports: Hx Arthritis, Hx Back Problems - Spinal stenosis, Hx Osteoporosis Denies: Hx Bursitis, Hx Congenital Bone Abnormalities, Hx Fibromyalgia, Hx Gout, Hx Orthopedic Injury, Hx Scoliosis, Hx Tendonitis Sensory History: Reports: Hx Cataracts, Hx Contacts or Glasses, Hx Vision Problem Denies: Hx Eye Injury, Hx Eye Prosthesis, Hx Glaucoma, Hx Macular Degeneration, Hx Deafness, Hx Hearing Aid, Hx Hearing Problem, Other Sensory Impairments Opthamlomology History: Reports: Hx Cataracts, Hx Contacts or Glasses, Hx Vision Problem Denies: Hx Eye Injury, Hx Eye Prosthesis, Hx Glaucoma, Hx Macular Degeneration, Other Sensory Impairments Neurological History: Denies: Hx Dementia, Hx Developmental Delay, Hx Headaches, Hx Migraine, Hx Seizures, Hx Spinal Cord Injury, Hx Transient Ischemic Attacks (TIA), Other Neuro Impairments/Disorders Psychiatric History: Denies: Hx Anxiety, Hx Attention Deficit Hyperactivity Disorder, Hx Autism, Hx Oppositional Irion Disorder, Hx Depression, Hx Panic Disorder, Hx Post Traumatic Stress Disorder, Hx Inpatient Treatment, Hx Community Mental Health Tx , Hx Schizophrenia, Hx Bipolar Disorder, Hx Suicide Attempt, Hx Substance Abuse , Other Psychiatric Issues/Disorders - Cancer History Cancer Type, Location and Year: squamous cell lung cancer Hx Chemotherapy: No Hx Radiation Therapy: Yes - completed in 2018, Dr. Lozano - Surgical History Surgical History: Yes Surgery Procedure, Year, and Place: LUMBAR LAMINECTOMY 07/20. BILATERAL CATARACT SURGERY. HYSTERECTOMY. Plantar surgery. Hernia repair Hx Anesthesia Reactions: No Infectious Disease History: No Infectious Disease History: Denies: Hx Clostridium Difficile, Hx Hepatitis, Hx Human Immunodeficiency Virus (HIV), Hx Shingles, Hx Tuberculosis, Traveled Outside the [place] in Last 30 Days - Family History Known Family History: Positive: Cardiac Disease - father and brother, Diabetes - brother and sister - Social History Occupation: Retired Lives: Assisted Living Alcohol Use: None Hx Substance Use: No Substance Use Type: Reports: None Hx Tobacco Use: Yes Smoking Status (MU): Former Smoker Have You Smoked in the Last Year: No Review of Systems Negative: Fever Cardiovascular: Negative Positive: Shortness Of Breath, Cough Positive: Abdominal Pain - pain in upper abdomen at diaphragm in epigastric region, no "gallbladder pain" in RUQ Positive: no symptoms reported Musculoskeletal: Negative Skin: Negative Positive: Headache - intermittent Psychological: Normal All Other Systems Reviewed And Are Negative: Yes Physical Exam - Summary Physical Exam Summary: Appearance: Ill-appearing, minimal pain distress bilaterally subcostal, well- nourished Skin: Warm, color reflects adequate perfusion, dry Head: Normal Head/Face inspection, atraumatic Eyes: Conjunctiva clear ENT: Normal inspection Neck: Supple, no nodes, no JVD Respiratory: Wearing usual home O2 at 2L, SOB with accessory muscles, speaking in short bursts of sentences Cardio: RRR, No murmur, pulses normal, brisk capillary refill Abdomen: Soft, minimal epigastric tenderness, no RUQ tenderness Bowel sounds: Present Musculoskeletal: Strength Intact/ROM intact, no calf tenderness, no edema. Psychological: Normal Neuro: Alert, muscle tone normal, no focal deficit Triage Information Reviewed: Yes Vital Signs On Initial Exam: Initial Vitals Temp Pulse Resp BP Pulse Ox 99.1 F 102 20 149/76 92 10/12/18 10:46 10/12/18 10:46 10/12/18 10:46 10/12/18 10:46 10/12/18 10:46 Vital Signs Reviewed: Yes Diagnostics - Vital Signs Vital Signs Temp Pulse Resp BP Pulse Ox 10/12/18 10:46 99.1 F 102 20 149/76 92 - Laboratory Result Diagrams: 10/13/18 04:49 10/13/18 04:49 Lab Statement: Any lab studies that have been ordered have been reviewed, and results considered in the medical decision making process. - Radiology CXR Radiology Interpretation Completed By: Radiologist Summary of Radiographic Findings: Impression: 1. Unchanged thickening of the right paratracheal stripe (correlates with previously described mass). 2. No new focal airspace opacification. 3. Old right rib fractures. ED physician has reviewed this report. - EKG 1134 Cardiac Rate: NL - 85 bpm EKG Rhythm: Sinus Rhythm ST Segment: Non-Specific Ectopy: PACs EKG Comparison: No Significant Change - c/w 02/16/18 Summary of EKG Findings: An EKG at 1134 reveals NSR at 85 bpm, nml AV, prolonged IV with RBBB and LAFB, nml QTc, and LAD (-48) PAC's. No acute changes. ED MD has reviewed and interpreted this EKG. Re-Evaluation - Re-Evaluation First Eval Re-Evaluation Time: 11:45 Change: Unchanged Comment: Patient is in the room with both of her daughters, Jennifer and Bernadette, and friend, Julianne. Second Eval Re-Evaluation Time: 13:20 Change: Unchanged Comment: We discussed results and plan for admission. Course/Dx - Course Course Of Treatment: Pt medications reviewed this visit. Nurses notes reviewed. Allergies noted. High blood pressure noted. Pt is an 83 y/o F with a cc of gradual worsening SOB with upper abdominal pain beginning 10/09/18 at the diaphragm still occurring after failed PCP rx of three-day course of 50mg Prednisone (finished) and five-day course of Doxycycline (two days left, not taken today). On 2L O2 at home with PMHx of COPD, squamous cell lung cancer ( radiation treatment but no chemotherpy finished a year ago), and former smoker. Upon physical exam, the patient is wearing usual home O2 at 2L and exhibits SOB with accessory muscles, speaks in short bursts of sentences, has minimal pain distress bilaterally subcostal, and minimal abdominal epigastric tenderness without RUQ tenderness. Blood work reveals WBCs of 17.2, absolute neuts of 15.1 , absolute lymphs of 0.8, absolute monos of 1.2, BUN/creatinine ratio of 31.4, and CRP of 10.74, but results are otherwise within normal limits. In the ED course, the patient was administered Solu-Medrol and Levalbuterol for dyspnea and Azithromycin for unresolved SOB with previous steroid and abx intervention by PCP. EKG at 1134 reveals NSR at 85 bpm with prolonged IV with RBBB and LAFB, LAD, and ectopy with PACs. Chest x-ray impression reveals unchanged thickening of the right paratracheal stripe and no new focal airspace opacifications. I discussed the patients case with Dr. Brush, hospitalist, and she accepts the patient for admission at 1330. Pt understands and agrees with this plan. - Diagnoses Provider Diagnoses: COPD exacerbation - Physician Notifications Discussed Care of Patient With: Christina Brush - hospitalist Time Discussed With Above Provider: 13:30 Instructed by Provider To: Admit As Observation - Dr. Brush accepts the patient for admisison. Discharge ED - Sign-Out/Discharge Documenting (check all that apply): Patient Departure - Patient is accepted for admission by Dr. Brush. All imaging exams completed and their final reports reviewed: Yes Patient Received Moderate/Deep Sedation with Procedure: No - Discharge Plan Condition: Good Disposition: ADMITTED TO [facility] - Billing Disposition and Condition Condition: GOOD Disposition: Admitted to [facility] - Attestation Statements Document Initiated by Bonita: Yes Documenting Scribe: Yael Harden Provider For Whom Bonita is Documenting (Include Credential): Dr. Esther Atkinson MD Scribe Attestation: Yael Avelar scribed for Dr. Esther Atkinson MD on 11/28/18 at 1129. Scribe Documentation Reviewed: Yes Provider Attestation: The documentation as recorded by the Yael ordoñez accurately reflects the service I personally performed and the decisions made by me, Dr. Esther Atkinson MD Status of Scribe Document: Viewed
[2018-10-12] MEDS ORDERED: Azithromycin IV(*) 250 MG in NS 0.9% 250 ML* 250 ML IVPB ONE (11:21)
[2018-10-12 11:53] LABS: Hematocrit 38 % (35-47); Hemoglobin 12.6 g/dL (12.0-16.0); Mean Corpuscular HGB Conc 33 g/dL (31-36); Mean Corpuscular Hemoglobin 29 pg (27-31); Mean Corpuscular Volume 88 fL (80-97); Mean Platelet Volume 7.4 fL (7.4-10.4); Platelet Count 382 10^3/uL (150-450); Red Blood Count 4.34 10^6 /uL (3.70-4.87); Red Cell Distribution Width 13 % (10-15); White Blood Count 17.2 10^3/uL (3.5-10.8)
[2018-10-12 11:54] LABS: ABS Basophils 0.1 10^3/ul (0-0.2); ABS Lymphocytes 0.8 10^3/ul (1.0-4.8); ABS Monocytes 1.2 10^3/ul (0-0.8); ABS Neutrophils 15.1 10^3/ul (1.5-7.7); Eosinophil % 0.2 %; Lymphocyte % 4.6 %
[2018-10-12 12:02] LABS: Activated Partial Thrombo Time 29.6 seconds (26.0-38.0); INR 0.91 (0.82-1.09)
[2018-10-12 12:26] LABS: CKMB ng/mL 2.6 ng/mL (0.6-6.3)
[2018-10-12 12:30] LABS: Albumin 4.1 g/dL (3.2-5.2); Calcium 9.6 mg/dL (8.6-10.3); Total Bilirubin 0.4 mg/dL (0.2-1.0)
[2018-10-12 12:36] LABS: Albumin/Globulin Ratio 1.5 (1-3); BUN/Creatinine Ratio 31.4 (8-20); C Reactive Protein 10.74 mg/L (<8.01); EGFR African American 96.9 (>60); EGFR Non-African American 80.1 (>60); Globulin 2.8 g/dL (2-4); Total Protein 6.9 g/dL (6.4-8.9)
[2018-10-12] MEDS ORDERED: Magnesium Hydroxide LIQ* 30 ML UDC PO PRN (14:04)
[2018-10-12] MEDS ORDERED: Al Hydrox/Mg Hydrox/Simet LIQ* 30 ML UDC PO PRN (14:04)
[2018-10-12] MEDS ORDERED: Acetaminophen TAB* 325 MG PO PRN (14:04)
[2018-10-12] MEDS ORDERED: Albuterol 2.5 MG/3 ML NEB.SOL* (0.083%) INH PRN (14:10)
[2018-10-12] MEDS ORDERED: Famotidine TAB* 20 MG PO PRN (14:52)
[2018-10-12] MEDS ORDERED: Enoxaparin(*) 40 MG/0.4 ML SYR SUBCUT SCH (15:00)
[2018-10-12] MEDS: Albuterol/Ipratropium NEB.SOL* Albuterol 2.5 MG/Ipratropium 0.5 MG 3 ML INH SCH ×3 (15:48→23:57)
[2018-10-12 16:16] LABS: TSH (Thyroid Stimulating Horm) 0.97 mcIU/mL (0.34-5.60)
--- NOTE | 2018-10-12 16:54 | HP ---
CC: Dr. Magalys Forrest* HISTORY AND PHYSICAL: DATE OF ADMISSION: 10/12/18 PRIMARY CARE PROVIDER: Dr. Magalys Forrest. HEALTHCARE PROXIES: Her daughters, Chandu. CODE STATUS: DNR/DNI. CHIEF COMPLAINT: A few days of chest congestion eventually associated with upper abdominal pain and fullness. HISTORY OF PRESENT ILLNESS: Ms. Rojas is an 83-year-old woman with COPD, on 2 L home O2; hyperthyroid; hypertension; and right lung cancer, status post radiation, who is presenting with subacute chest congestion associated with 2 days of upper abdominal pain and fullness. The patient reports that approximately 5 days ago she started to feel chest congestion. She denies associated upper respiratory symptoms at that time. She states this is her typical symptom when she has an exacerbation of her COPD. She is unsure if she was having worsening shortness of breath or increased cough or sputum production as she seems a somewhat poor historian, but her friend at bedside reports that she does seem like she was breathing harder than normal especially on ambulation. Approximately 5 days ago, the patient had gone to an outpatient provider and received doxycycline and prednisone, which she had been taking for the last 5 days. The patient initially says that she got better after starting these medications, although later in interview, she states that she thinks her breathing is just as bad as it was 5 days ago, so this is unclear. Additionally , the patient reports that starting 1 day prior to presentation she started experiencing bilateral upper abdominal pain and bloating. She reports that this morning after breakfast she felt significant fullness and she is unclear, but this may be why she eventually decided to present to the emergency room. The patient denies associated fevers, chills, decreased appetite, nausea, vomiting, constipation, diarrhea. She denies worsening of her cough. She denies orthopnea, chest pain, palpitations. She has not needed to increase the amount of oxygen she uses at home. She does think over the last couple days she has also had a return of her reflux for which at home she takes a PPI and an H2 gaby. She reports experiencing more sour taste in her mouth over the last couple days as well. PAST MEDICAL HISTORY: 1. Right lung cancer, status post radiation. 2. COPD, on home O2. 3. Hyperthyroidism. 4. Hypertension. 5. Heartburn. PAST SURGICAL HISTORY: Inguinal and umbilical hernia repairs, hysterectomy, cataract surgery, back surgery, bilateral foot surgery with toe straightening. HOME MEDICATIONS: 1. Incruse Ellipta 1 inhalation daily. 2. Symbicort 2 puffs twice a day. 3. Albuterol inhaler 2 puffs every 4 hours as needed for shortness of breath. 4. Omeprazole 20 mg daily. 5. Ranitidine 150 mg twice a day. 6. Methimazole 5 mg daily. 7. Roflumilast 500 mcg daily. 8. Montelukast 10 mg daily. 9. Lisinopril 10 mg daily. 10. Calcium/vitamin D daily. 11. Ocuvite lutein 1 cap daily. 12. MiraLAX 17 g daily as needed for constipation. 13. Zoledronic acid infusions as an outpatient. ALLERGIES: CEPHALEXIN caused anaphylactic shock, AUGMENTIN caused difficulty breathing, GUAIFENESIN has unknown reaction. FAMILY HISTORY: Multiple siblings with diabetes. Sister survived heart attack. Few brothers from heart attack as well as her father. SOCIAL HISTORY: The patient lives alone at [facility]. She reports quitting tobacco use in 2001 and has approximately 37-pack year prior to that. She denies alcohol or illicit drug use. Her surrogate decision makers are her twin daughters, Jennifer and Riri. 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 REVIEW OF SYSTEMS: A complete 10-point review of systems was performed and pertinent positives and negatives are listed in the HPI. PHYSICAL EXAMINATION GENERAL: She is a well-appearing woman, in no acute distress, speaking in full sentences. VITAL SIGNS: The patient is afebrile, heart rate 80s, blood pressure 148/79, respiratory rate 20, oxygen saturation 96% on 2 L. HEENT: Moist mucous membranes. OP clear. NECK: No JVD. Supple. LUNGS: With mild expiratory wheeze bilaterally. Right-sided rhonchi in mid lung smith. HEART: Regular rate and rhythm. No murmurs, gallops, or rubs. ABDOMEN: Soft, nontender, nondistended. No guarding or rebound. Negative Chawla's sign. EXTREMITIES: Warm and well perfused. No evidence of edema. DP pulses 2+ bilaterally. NEURO: A and O x3. No focal deficits. Speech clear. DIAGNOSTIC STUDIES/LAB DATA: CBC notable for a WBC to 17 without a left shift. BMP, coags, and LFTs are unremarkable. Troponin negative. CRP 10. Chest x-ray with unchanged thickening of the right paratracheal stripe, which correlates with previously described mass. No new focal airspace opacification. Old right rib fractures. EKG with sinus rhythm at 85, deep S waves in I, T-wave inversion in III. ASSESSMENT AND PLAN: Ms. Rojas is an 83-year-old woman with a history of chronic obstructive pulmonary disease, on home O2; right-sided lung cancer, status post radiation; hyperthyroid, who is presenting to the emergency room with nonspecific complaints of chest congestion and upper abdominal fullness. 1. Chest congestion. This does not seem completely consistent with chronic obstructive pulmonary disease exacerbation as the patient is not reporting worsening shortness of breath or increased cough or sputum production; however, her history is quite inconsistent and her family and friends think she has worsened shortness of breath. She is status post 1 dose of IV steroids in the ER and she will be continued on prednisone burst while admitted. She does not currently have increased oxygen requirements. She can be continued on azithromycin and her home triple therapy inhalers. Will start on nebulizers as needed. Given that the patient is high risk for pulmonary embolism given active malignancy and also her EKG changes which are new since prior EKGs in 2017, we will also order a CTA to rule out pulmonary embolism. Continue home montelukast 10 mg daily and roflumilast 500 mcg daily. 2. Upper abdominal fullness. This could be worsening of the patient's reflux as she reports worsening heartburn and sour taste in her mouth; however, given that she also points to her right upper quadrant and the pain seems to radiate across her upper abdomen, we will also order a right upper quadrant ultrasound to explore for gallbladder disease. Her LFTs are normal, so this is low suspicion. 3. Hyperthyroid. We will check a TSH. Continue home methimazole 5 mg daily. 4. Hypertension. Continue home lisinopril 10 mg daily. 5. Gastroesophageal reflux disease. Continue home PPI and H2 gaby. We will order Maalox as needed. 6. DVT prophylaxis: Initiate Lovenox subcu. 7. Code status: The patient is DNR/DNI. She has not officially documented this before and a MOLST was given to her in the ER and she wanted to fill this out herself and complete this while admitted. TIME SPENT: Approximately 60 minutes was spent on admission of this patient, more than half of which was spent at bedside for interview and exam. [id number]/[facility] #: [id number] JASPER
[2018-10-12 17:00] LABS: Urine Appearance Clear; Urine Bilirubin Negative (Negative); Urine Blood Negative (Negative); Urine Color Straw; Urine Glucose Negative (Negative); Urine Ketones Negative (Negative); Urine Nitrite Negative (Negative); Urine Protein Negative (Negative); Urine Specific Gravity 1.009 (1.010-1.030); Urine Urobilinogen Negative (Negative)
[2018-10-12] MEDS ORDERED: Iohexol 350* (CONTRAST) 500 ML MDV IV ONE (18:34)
[2018-10-12] MEDS: Mometasone/Formoter 100/5 MDI INH SCH (19:40)
[2018-10-13] MEDS: Albuterol/Ipratropium NEB.SOL* Albuterol 2.5 MG/Ipratropium 0.5 MG 3 ML INH SCH ×2 (03:48→07:43)
[2018-10-13 05:08] LABS: Hematocrit 34 % (35-47); Hemoglobin 11.4 g/dL (12.0-16.0); Mean Corpuscular HGB Conc 33 g/dL (31-36); Mean Corpuscular Hemoglobin 30 pg (27-31); Mean Corpuscular Volume 89 fL (80-97); Mean Platelet Volume 7.5 fL (7.4-10.4); Platelet Count 341 10^3/uL (150-450); Red Blood Count 3.86 10^6 /uL (3.70-4.87); Red Cell Distribution Width 14 % (10-15); White Blood Count 12.9 10^3/uL (3.5-10.8)
[2018-10-13 05:26] LABS: Albumin 3.6 g/dL (3.2-5.2); Albumin/Globulin Ratio 1.5 (1-3); BUN/Creatinine Ratio 29.7 (8-20); Calcium 8.9 mg/dL (8.6-10.3); EGFR African American 107.5 (>60); EGFR Non-African American 88.8 (>60); Globulin 2.4 g/dL (2-4); Potassium 3.9 mmol/L (3.5-5.0); Total Bilirubin 0.3 mg/dL (0.2-1.0)
[2018-10-13] MEDS: Mometasone/Formoter 100/5 MDI INH SCH (07:44)
[2018-10-13] MEDS ORDERED: Lisinopril TAB* 10 MG PO SCH (09:00)
[2018-10-13] MEDS ORDERED: SPIRIVA Respimat* (tiotropium) 2.5 mcg/inh Inhaler INH SCH (09:00)
[2018-10-13] MEDS ORDERED: Montelukast Sodium TAB* 10 MG PO SCH (09:00)
[2018-10-13] MEDS ORDERED: CMC:Roflumilast (NF) 500 MCG TAB PO SCH (09:00)
[2018-10-13] MEDS ORDERED: Pantoprazole TAB * 40 MG TAB PO SCH (09:00)
[2018-10-13] MEDS ORDERED: Methimazole TAB* 5 MG PO SCH (09:00)
[2018-10-13] MEDS ORDERED: Azithromycin TAB* 250 MG PO SCH (09:00)
[2018-10-13] MEDS ORDERED: predniSONE TAB* 50 MG PO SCH (09:00)
[2018-10-13 11:27] VITALS: BP 129/53
--- NOTE | 2018-10-13 14:53 | DS ---
CC: Dr. Magalys Forrest DISCHARGE SUMMARY: DATE OF ADMISSION: 10/12/18 DATE OF DISCHARGE: 10/13/18 PRIMARY CARE PHYSICIAN: Dr. Magalys Forrest. PRIMARY DIAGNOSES: 1. Reflux. 2. Chronic obstructive pulmonary disease exacerbation. DISCHARGE MEDICATIONS: 1. Omeprazole 20 mg daily. 2. Ranitidine 150 mg twice a day. 3. Symbicort 2 puffs twice a day. 4. Incruse Ellipta 1 inhalation daily. 5. Montelukast 10 mg p.o. daily. 6. Roflumilast 500 mcg daily. 7. Levalbuterol 1 inhalation every 4 hours as needed for shortness of breath. 8. Methimazole 5 mg daily. 9. Lisinopril 10 mg daily. 10. Zoledronic acid infusions as an outpatient. 11. Vitamin D/calcium combo. 12. Tylenol 500 three times a day as needed for pain. 13. Ocuvite lutein 1 cap daily. 14. Prednisone 5 mg daily. HISTORY OF PRESENT ILLNESS: Ms. Rojas is an 83-year-old woman with COPD, on home O2 2 L; hyperthyroid; hypertension; and right-sided lung cancer status post radiation, who is presenting with subacute chest congestion associated with acute onset of upper abdominal pain and fullness. The patient reports that approximately 5 days prior to presentation, she began to feel chest congestion. She denied associated upper respiratory symptoms. She stated this is her typical symptom when experiencing a COPD exacerbation. She is unsure if she was having worsening shortness of breath or increased cough or sputum production as she seemed a somewhat poor historian, but her friend at bedside reports that she does seem like she was breathing harder than normal at that time, especially on ambulation. Around start of these symptoms, the patient had gone to her outpatient provider and received doxycycline and a prednisone burst , which the patient had been taking for the prior 5 days. She thinks she initially was getting better from respiratory standpoint, although later in the interview she does say that she thinks her breathing has gotten worse, so this is unclear. Additionally, the patient reports that approximately 1 day prior to presentation, she started experiencing upper abdominal fullness radiating across the right and left upper quadrants. She reports that on the morning of presentation after breakfast, she felt significant fullness and this is possibly why she presented to the emergency room. She denies associated fevers , chills, decreased appetite, nausea, vomiting, constipation, diarrhea. She denies orthopnea, chest pain, or palpitations. She has not needed to increase her oxygen requirements at home. She does report increased heartburn and reflux over the last 2 days. HOSPITAL COURSE: Given the patient's nonspecific respiratory complaints and EKG with slight changes compared with prior to 2019, including an S wave in I, T -wave inversion in III, she was ordered for a CTA of the chest and a PE was ruled out. Given her upper abdominal discomfort associated with eating, she was ordered for a right upper quadrant ultrasound, which had no sonographic findings to correlate with her symptoms. By next morning, the patient reports feeling back to her baseline. She states she thinks she perhaps had upper abdominal fullness given her osteoporosis and kyphosis, which has caused her to lean forward more on her stomach and she thinks that is the reason for her symptoms. She felt comfortable returning home with close primary care followup. We did discuss on day of discharge her chest CTA, which showed a new enlarged mediastinal lymph node that was concerning for new metastases versus reactive changes. The patient states that she would never want a biopsy and she would also not want to undergo radiation again. She also states she previously had turned down chemotherapy. She states she felt comfortable following up these findings with her outpatient radiation oncologist. On day of discharge, a 10-point review of systems was performed and significant only for mild dyspnea on exertion, which is the patient's baseline. She was eating well , had a bowel movement, and denied cough. PHYSICAL EXAM: The patient is afebrile, heart rate 70s, blood pressure 129/53, respiratory rate 18, oxygen saturation 98% on 2 L. In general, she is a well- appearing pleasant woman, in no acute distress who is alert and interactive. Able to speak in full sentences and without increased work of breathing. HEENT : Moist mucous membranes. OP clear. Neck: No JVD. Supple. Lungs: Decreased air movement bilaterally but without wheeze or crackles. Persistent right-sided rhonchi only in mid lung smith. Heart: Regular rate and rhythm. No murmurs, gallops, or rubs. Abdomen: Soft, nontender, nondistended. No guarding or rebound. Extremities: Warm and well perfused without evidence of edema. Neuro: A and O x3. No focal deficits. Speech clear. DIAGNOSTIC STUDIES/LAB DATA: White blood cell count decreased from 17 to 13, hemoglobin 11.4 which seems near the patient's baseline. BMP, Coags and LFTs were unremarkable. TSH: 0.97. UA: Clear. Liver ultrasound: With normal liver without focal lesions. Gallbladder without stones, wall thickening, pericholecystic fluid, or sonographic Chawla sign. CBD is normal at 0.6 cm. Chest CTA: Without pulmonary emboli, with stable right upper lobe collapse due to endobronchial mass, although a discrete mass is not visualized on the current study. There is a concerning new enlarged mediastinal lymph node concerning for new metastases. A right thyroid lobe nodule is seen, correlate with recent thyroid ultrasound recommendations. DISCHARGE PLAN: The patient is to follow up with her primary care physician as well as her radiation oncologist. She is to continue her home medications as noted above without any significant changes. She states that she had already finished her course of doxycycline and prednisone 50 mg daily before arriving to the hospital and she knows to return back to her dose of prednisone 5 mg daily. DIET: The patient is to eat a regular diet, low in processed foods. ACTIVITY: As tolerated. She was educated on return precautions, which include but are not limited to fevers, worsening shortness of breath, orthopnea, nausea, vomiting, or change in bowel habits. DISPOSITION: To home. CONDITION: Good. TIME SPENT: Approximately 60 minutes was spent on discharge of this patient, more than half of which was spent with care coordination at bedside for interview and exam. [id number]/[facility] #: [id number] JASPER
== END 2018-10-13 13:05 | disposition home or self-care (01) ==
LOC: ED 10:43 → INTOOBSV 14:04 → MED 14:04
PROVIDERS: ADMIT Internal Medicine; ATTEND Internal Medicine
DX: K21.9 Gastro-esophageal reflux disease without esophagitis (principal); J44.1 Chronic obstructive pulmonary disease with (acute) exacerbation; Z79.899 Other long term (current) drug therapy; I10 Essential (primary) hypertension; Z85.118 Personal history of other malignant neoplasm of bronchus and lung; Z88.0 Allergy status to penicillin; Z87.891 Personal history of nicotine dependence; R94.31 Abnormal electrocardiogram [ECG] [EKG]
CPT/HCPCS: 36415; 71045; 71275; 76705; 80053; 81003; 82550; 82553; 83605; 83735; 83880; 84443; 84484; 85025; 85027; 85610; 85730; 86140; 93005; 94640; 96365; 96372; 96375; 99284; A9270-GY; G0378; G8978-GP-CI; G8979-GP-CI; G8980-GP-CI; J0456; J1650; J2930; J3535; J7512; Q9967